=== PATIENT | female | born 1970 | race Caucasian/White ===

== ENCOUNTER 2020-11-17 09:49 | Outpatient (RCR) | payer BC, OTHER ==
[2020-11-03 10:20] LABS: BASOPHILS # (AUTO) 0.1 10^3/uL (0.0-0.1); BASOPHILS % (AUTO) 1 % (0-10); EOSINOPHILS # (AUTO) 0.2 10^3/uL (0.0-0.3); EOSINOPHILS % (AUTO) 3 % (0-10); HEMATOCRIT 35 % (35-52); HEMOGLOBIN 10.9 g/dL (11.5-16.0); LYMPHOCYTES # (AUTO) 1.9 10^3/uL (1.0-4.0); LYMPHOCYTES % (AUTO) 25 % (12-44); MEAN CORPUSCULAR HEMOGLOBIN 30 pg (25-34); MEAN CORPUSCULAR HGB CONC 31 g/dL (32-36); MEAN CORPUSCULAR VOLUME 98 fL (80-99); MEAN PLATELET VOLUME 8.9 fL (9.0-12.2); MONOCYTES # (AUTO) 0.4 10^3/uL (0.0-1.0); MONOCYTES % (AUTO) 5 % (0-12); NEUTROPHILS # (AUTO) 4.9 10^3/uL (1.8-7.8); NEUTROPHILS % (AUTO) 66 % (42-75); PLATELET COUNT 292 10^3/uL (130-400); WHITE BLOOD COUNT 7.5 10^3/uL (4.3-11.0)
[2020-11-03 10:47] LABS: BILIRUBIN,TOTAL 0.2 MG/DL (0.1-1.0); CALCIUM 9.4 MG/DL (8.5-10.1); CREATININE SERUM 1.04 MG/DL (0.60-1.30); POTASSIUM 4.1 MMOL/L (3.6-5.0); TOTAL PROTEIN 6.2 GM/DL (6.4-8.2)
[2020-11-25] MEDS ORDERED: NAPR-1033 PO (10:22)
[2020-11-25] MEDS ORDERED: OMEG-33 PO (10:22)
[2020-11-25] MEDS ORDERED: OMEP20TA7 PO (10:22)
[2020-11-25] MEDS ORDERED: SENN-75 PO (10:22)
[2020-11-25] MEDS ORDERED: FERR-84 PO (10:22)
[2020-11-25] MEDS ORDERED: LORA10TA7 PO (10:22)
[2020-11-25] MEDS ORDERED: CYAN250014 PO (10:22)
[2020-11-25] MEDS ORDERED: VENL50TA2 PO (10:22)
== END 2020-12-09 10:12 | disposition home or self-care (01) ==
LOC: ONC 09:49
PROVIDERS: ATTEND Internal Medicine Hematology & Oncology
DX: C50.211 Malignant neoplasm of upper-inner quadrant of right female breast (principal); N93.9 Abnormal uterine and vaginal bleeding, unspecified; D50.9 Iron deficiency anemia, unspecified; R53.83 Other fatigue; Z17.1 Estrogen receptor negative status [ER-]
CPT/HCPCS: 80053; 82728; 83540; 83550; 85025; G0463; 99213; 99214

== ENCOUNTER 2020-11-25 05:36 | Outpatient (CLI) | payer BC ==
[~2020-11-25] VITALS: Ht 175.3 cm; Wt 102.7 kg
[2020-11-25] MEDS ORDERED: FERR-84 PO (10:22)
[2020-11-25] MEDS ORDERED: CYAN250014 PO (10:22)
[2020-11-25] MEDS ORDERED: VENL50TA2 PO (10:22)
[2020-11-25] MEDS ORDERED: LORA10TA7 PO (10:22)
[2020-11-25] MEDS ORDERED: OMEP20TA7 PO (10:22)
[2020-11-25] MEDS ORDERED: NAPR-1033 PO (10:22)
[2020-11-25] MEDS ORDERED: OMEG-33 PO (10:22)
[2020-11-25] MEDS ORDERED: SENN-75 PO (10:22)
== END 2020-11-25 15:21 | disposition home or self-care (01) ==
LOC: PREOP 05:36
PROVIDERS: ATTEND Obstetrics & Gynecology
DX: Z01.818 Encounter for other preprocedural examination (principal)

== ENCOUNTER 2020-12-21 10:03 | Outpatient (RCR) | payer BC ==
[~2020-12-21 10:03] MED LIST: CYAN250014 PO; FERR-84 PO; LORA10TA7 PO; NAPR-1033 PO; OMEG-33 PO; OMEP20TA7 PO; SENN-75 PO; VENL50TA2 PO
[2020-12-21 10:44] VITALS: BP 127/85
[2020-12-21] MEDS ORDERED: [UNRECOGNIZED DRUG - OTHER] SQ SCH (10:45)
== END 2021-03-21 | disposition home or self-care (01) ==
LOC: SDC 10:03
PROVIDERS: ATTEND Internal Medicine Hematology & Oncology
DX: C50.211 Malignant neoplasm of upper-inner quadrant of right female breast (principal); D70.1 Agranulocytosis secondary to cancer chemotherapy
CPT/HCPCS: 96372

== ENCOUNTER 2020-12-24 18:07 | Emergency (ER) | payer BC ==
[~2020-12-24] VITALS: Ht 175.3 cm; Wt 104.5 kg
--- OUTSIDE RECORDS SUMMARY | 2020-12-24 18:13 | XMS REPORT | Encounter Summary ---
Author Author [facility] Organization [facility] Address Unknown Phone Unavailable Care Team Providers Care Manager Vehicle Name Role Phone Self, Juan Miguel AMBROCIO PCP Encounter Details Care Team Description Date Type Department Jodi Avila MD [address] [place] [id number] 12/22/2020 Orders Only Oncology: David salomon, [facility] [address] [place] [address] Social History Date Tobacco Use Types Packs/Day Years Used Current Every Day Smoker 0.5 4 Smokeless Tobacco: Never Used Comments Alcohol Use Standard Drinks/Week rarely Yes 0 (1 standard drink = 0.6 o z pure alcohol) Sex Assigned at Date Recorded Female 12/15/2020 7:49 AM CDT Date Recorded COVID-19 Exposure Response 12/20/2020 9:48 AM CDT In the last month, have you been in contact with No / Unsure someone who was confirmed or suspected to have Coronavirus / COVID-19? documented as of this encounter Functional Status Date of Assessment Functional Status Response 12/20/2020 Does the patient have a hearing impairment: No 12/20/2020 Does the patient have a visual impairment: Yes 12/20/2020 Does the patient have impaired ambulation: No 12/20/2020 Does the patient have an activity of daily living No (ADL) impairment: 12/20/2020 Does the patient have an instrumental activity of No daily living (IADL) impairment: Date of Assessment Cognitive Status Response 12/20/2020 Does the patient have a cognitive impairment: No documented as of this encounter Ordered Prescriptions Start Date End Date Prescription Sig Dispensed Refills 12/22/2020 varenicline (CHANTIX REJI) Take 0.5mg by 53 tablet 0 0.5 mg (11)- 1 mg (42) mouth daily tablet for 3 days, then increase to 0.5mg by mouth twice daily for 4 days, then increase to 1mg by mouth twice daily. documented in this encounter Plan of Treatment Not on filedocumented as of this encounter Visit Diagnoses Not on filedocumented in this encounter Discontinued Medications Start Date End Date Medication Sig Discontinue Reason 12/01/2020 12/22/2020 varenicline (CHANTIX Take 0.5mg STARTING MONTH BOX) 0.5 by mouth mg (11)- 1 mg (42) tablet daily for 3 days, then increase to 0.5mg by mouth twice daily for 4 days, then increase to 1mg by mouth twice daily. documented as of this encounter Additional Health Concerns Assessment Noted Time A fall risk assessment has been completed for the pat ient 12/20/2020 10:18 AM CDT PHQ-2 Depression Total Score: 0 12/01/2020 10:33 AM CDT documented as of this encounter
--- OUTSIDE RECORDS SUMMARY | 2020-12-24 18:13 | XMS REPORT | Encounter Summary ---
Author Author [facility] Organization [facility] Address Unknown Phone Unavailable Care Team Providers Care Block Sealer Name Role Phone Juan Miguel Jacobs MD PCP Reason for Visit * Radiology Services (Routine) Referred By Contact Referred To Contact Status Reason Specialty Diagnoses / Procedures Jodi Avila MD [address] [place] [address] New Request Radiology Diagnoses Malignant neoplasm of right breast in female, estrogen receptor negative, unspecified site of breast (HCC) P rocedures US BREAST TARGET RT US BREAST COMPLETE BILAT Encounter Details Care Team Description Date Type Department Jodi Avila MD [address], [place] [id number] 12/01/2020 Hospital [facility] [address] [place] [phone] Social History Date Tobacco Use Types Packs/Day Years Used Current Every Day Smoker 0.5 4 Smokeless Tobacco: Never Used Comments Alcohol Use Standard Drinks/Week rarely Yes 0 (1 standard drink = 0.6 o z pure alcohol) Sex Assigned at Date Recorded Female 12/15/2020 7:49 AM CDT Date Recorded COVID-19 Exposure Response 12/01/2020 9:01 AM CDT In the last month, have you been in contact with No / Unsure someone who was confirmed or suspected to have Coronavirus / COVID-19? documented as of this encounter Functional Status Date of Assessment Functional Status Response 12/01/2020 Does the patient have a hearing impairment: No 12/01/2020 Does the patient have a visual impairment: Yes 12/01/2020 Does the patient have impaired ambulation: No 12/01/2020 Does the patient have an activity of daily living No (ADL) impairment: 12/01/2020 Does the patient have an instrumental activity of No daily living (IADL) impairment: Date of Assessment Cognitive Status Response 12/01/2020 Does the patient have a cognitive impairment: No documented as of this encounter Medications at Time of Discharge Start Date End Date Medication Sig Dispensed Refills docosahexaenoic acid/epa Take 500 mg 0 (FISH OIL PO) by mouth daily. docusate sodium (STOOL Take by 0 SOFTENER PO) mouth as Needed. ferrous sulfate (FEOSOL) Take 325 mg 0 325 mg (65 mg iron) by mouth as tablet Needed. Take on an empty stomach at least 1 hour before or 2 hours after food. loratadine (CLARITIN) 10 Take 1 tablet 0 mg tablet by mouth twice daily. omeprazole DR (PRILOSEC) Take 20 mg by 0 20 mg capsule mouth at bedtime daily. 09/22/2020 venlafaxine XR (EFFEXOR TAKE 1 0 XR) 150 mg capsule CAPSULE BY MOUTH ONCE DAILY WITH FOOD FOR 90 DAYS 09/22/2020 venlafaxine XR (EFFEXOR TAKE 1 0 XR) 75 mg capsule CAPSULE BY MOUTH ONCE DAILY WITH FOOD FOR 90 DAYS 12/15/2020 cyanocobalamin (vitamin Take by 0 B-12) (VITAMIN B12 PO) mouth. 12/01/2020 12/22/2020 varenicline (CHANTIX Take 0.5mg by 53 tablet 0 STARTING MONTH BOX) 0.5 mouth daily mg (11)- 1 mg (42) tablet for 3 days, then increase to 0.5mg by mouth twice daily for 4 days, then increase to 1mg by mouth twice daily. documented as of this encounter Discharge Disposition Code Departure Means Destination Disposition Home Home or Self Care documented in this encounter Plan of Treatment Not on filedocumented as of this encounter Procedures Comments Procedure Name Priority Date/Time Associated Diag nosis US BREAST TARGET RT Routine 12/01/2020 Malignant neoplasm of 9:33 AM CDT right breast in female, estrogen receptor negative, unspecified site of breast (HCC) documented in this encounter Results * US BREAST TARGET RT (12/01/2020 9:33 AM CDT) Specimen Impressions Performed At ASSESSMENT: BIRAD 6-Known biopsy proven malignancy [facility] RECOMMENDATION: Treatment plan. Narrative Performed At [id number] US BREAST TARGET RT: RIGHT BREAST - DECEMBER 01, 2020 - [facility] Standard views. Technologist: Melinda Nunez Sonograp her Prior study comparison: October 20, 2020, diagnostic mammogram. History: 50-year old female presents fo r additional imaging prior to surgical consultation after ultrasou nd-guided biopsy of a screening detected mass within [facility] t breast demonstrated malignancy. Outside post procedure mamm ogram demonstrates a ribbon-shaped tissue marker clip along the posterior superior margin of the mass. Targeted ultrasound of the right breast was performed by a trained prepress supervisor. There is irregular not parallel hypoech oic mass with spiculated margins within the right breast at 12:3 0, 10 cm from the nipple measuring 1.1 x 0.9 x 0.9 cm. Adjacent echogenicity likely represents the tissue marker clip. This is consistent with the biopsy-proven malignancy. No morphologically suspicious right axi llary lymph nodes. 4 morphologically normal lymph nodes are documented. No suspicious parasternal/internal mamm oscar lymph nodes are seen. Impression: 1. Biopsy-proven malignant 1.1 cm right breast mass at 12:30 marked with a ribbon tissue marker clip along the margin of the mass. 2.No right axillary or parasternal lymp hadenopathy. Finalized by Shabnam Hill M.D. on 12/01/2020 9:44 AM. Dictated by Shabnam Hill M.D. on 9:41 AM. Electronically signed and approved by: Shabnam Hill M.D. [id number] Procedure Note Interface, Radiant Results - 12/01/2020 9:45 AM CDT [id number] US BREAST TARGET RT: RIGHT BREAST - DECEMBER 01, 2020 - Standard views. Technologist: Melinda Nunez, [employer] Prior study comparison: October 20, 2020, diagnostic mammogram. History: 50-year old female presents for additional imaging prior to surgical consultation after ultrasound-guided biopsy of a screening detected mass within the right breast demonstrated malignancy. Outside post procedure mammogram demonstrates a ribbon-shaped tissue marker clip along the posterior superior margin of the mass. Targeted ultrasound of the right breast was performed by a trained prepress supervisor. There is irregular not parallel hypoechoic mass with spiculated margins within the right breast at 12:30, 10 cm from the nipple measuring 1.1 x 0.9 x 0.9 cm. Adjacent echogenicity likely represents the tissue marker clip. This is consistent with the biopsy-proven malignancy. No morphologically suspicious right axillary lymph nodes. 4 morphologically normal lymph nodes are documented. No suspicious parasternal/internal mammary lymph nodes are seen. Impression: 1. Biopsy-proven malignant 1.1 cm right breast mass at 12:30 marked with a ribbon tissue marker clip along the margin of the mass. 2.No right axillary or parasternal lymph adenopathy. Finalized by Shabnam Hill M.D. on 12/01/2020 9:44 AM. Dictated by Shabnam Hill M.D. on 12/01/2020 9:41 AM. Electronically signed and approved by: Shabnam Hill M.D. [id number] IMPRESSION ASSESSMENT: BIRAD 6-Known biopsy proven malignancy RECOMMENDATION: Treatment plan. Performing Organization Address City/State/ZIP Code P lemuel Number [facility] documented in this encounter Visit Diagnoses Diagnosis Malignant neoplasm of right breast in [place], estrogen receptor negative, unspecified site of breast (HCC) documented in this encounter Additional Health Concerns Assessment Noted Time A fall risk assessment has been completed for the pat ient 12/01/2020 10:33 AM CDT PHQ-2 Depression Total Score: 0 12/01/2020 10:33 AM CDT documented as of this encounter
--- OUTSIDE RECORDS SUMMARY | 2020-12-24 18:13 | XMS REPORT | Encounter Summary ---
Author Author [facility] Organization [facility] Address Unknown Phone Unavailable Care Team Providers Care Staffing Branch Manager Name Role Phone Reynaldo, Juan Miguel AMBROCIO PCP Reason for Visit * Reason Comments Cancer Encounter Details Care Team Description Date Type Department Jodi Avila MD [address] [place] [address] [place] [address] [place] [address] At risk for lymphedema 12/01/2020 Nurse Only Oncology: Abraham salomon, [facility] [address] [place] [phone] Social History Date Tobacco Use Types Packs/Day [...] impairment: No documented as of this encounter Progress Notes * Jennie Huynh RN - 12/01/2020 11:30 AM CDT LYMPHEDEMA DATASHEET-BASELINE DATE: 12/01/2020 PATIENT NAME: Divina Sanchez DATE OF : 1970 Enrollment Visit Type: Pre-Operative Patient Completed Questionnaire?: No BASELINE DIAGNOSTIC ASSESSMENT Diagnosis performed at [facility]? No Diagnostic Procedure: Core Biopsy: Ultrasound guided Surgery performed at [facility]? Yes Surgical Procedure: Pending Plan: Neoadjuvant BASELINE MEASUREMENTS Handedness: right handed Circumferential Measurements Bioimpedance Analysis RUE/LUE Unilateral: 0.3, right Hand: 17.9/17.6 Wrist: 15.8/15.5 8 cm: 20.9/21.1 16 cm: 27.8/27.4 Elbow cm: 28.5/28.2 8 cm: 34.4/34.3 16 cm: 35.3/35.4 24 cm: 38.8/38.3 BMI: 33.86 Notes: True Baseline Saw Ms. Sanchez for baseline lymphedema evaluation prior to initiation of neoad juvant chemotherapy. Reviewed goal of visit. Baseline assessment and measurement s completed, including bilateral arm circumference utilizing a Juzo tape measure , L-Dex Bioimpedence test, ROM, strength, and functional status. All assessments WNL. Instructed patient to use non-affected arm for blood pressures and needle sticks post-operative. Plan: Lymphedema education preoperatively or postoperatively dependent upon value analysis coordinator rdination of schedule. Follow up: Verified patient has contact information should any questions or conc erns arise. Written information regarding today's visit provided. documented in this encounter Plan of Treatment Order Schedule Name Type Priority Associated Diag noses Ordered: 12/01/2020 PERFORM L-DEX Procedures Routine At risk for lym phedema documented as of this encounter Visit Diagnoses Diagnosis At risk for lymphedema Other specified conditions influencing health status documented in this encounter Orders First Ordered Date Nursing Count Last Ordered Date IMPLEMENT BREAST CANCER LYMPHEDEMA 1 08/2020 PREVENTION SURVEILLANCE PROTOCOL documented in this encounter Additional Health Concerns Assessment Noted Time A fall risk assessment has been completed for the pat ient 12/01/2020 10:33 AM CDT PHQ-2 Depression Total Score: 0 12/01/2020 10:33 AM CDT documented as of this encounter
--- OUTSIDE RECORDS SUMMARY | 2020-12-24 18:13 | XMS REPORT | Encounter Summary ---
Author Author [facility] Organization [facility] Address Unknown Phone Unavailable Care Team Providers Care Chip Loft Worker Name Role Phone Reynaldo, Juan Miguel AMBROCIO PCP Reason for Visit * Auth/Cert Referred By Contact Referred To Contact Status Reason Specialty Diagnoses / Procedures Diagnoses Malignant neoplasm of upper-inner quadrant of right breast in female, estrogen receptor negative (HCC) Malignant neoplasm of upper-inner quadrant of right breast in female, estrogen receptor negative (HCC) [C50.211, Z17.1] P rocedures SC INSJ TUNNELED CTR VAD W/SUBQ PORT AGE 5 YR/> SC FLUORO CENTRAL VENOUS ACCESS DEV PLACEMENT INSERTION TUNNELED CENTRAL VENOUS ACCESS DEVICE WITH SUBCUTANEOUS PORT - AGE 5 YEARS AND OVER FLUOROSCOPIC GUIDANCE CENTRAL VENOUS ACCESS DEVICE PLACEMENT/ REPLACEMENT/ REMOVAL Encounter Details Care Team Description Date Type Department Tk Mccauley MD [id number] [place] [address] [phone] Az Cline CRNA [address] [place] [address] [phone] 12/16/2020 Anesthesia Operating Room: Leon Arizmendi, [facility] [address] [place] [phone] Anesthesia Record Responsible Anesthesiologist Anesthesia Start Time Anesthesi a Stop Time Procedure Name Tk Mccauley MD 12/16/20 1020 12/16/20 1056 INSERTION TUNNELED CENTRAL VENOUS ACCESS DEVICE WITH SUBCUTANEOUS PORT - AGE 5 YEARS AND OVER (Left Chest) Date Time Event Comment 1001 1013 AN Equip Check 1019 Out of Pre Procedure 1020 Anes Start 1021 In Room 1021 An Start Data 1023 Start Supplemental O2 1026 Anesthesia Ready 1030 Proc Start 1050 an stop data 1053 Handoff to RN I completed my SBAR handoff to the receiving nurse. 1056 An Stop Meds Name Total midazolam (VERSED) 1 mg/mL injection 2 mg fentaNYL PF (SUBLIMAZE) injection 100 mcg lidocaine PF 2% 100mg/5mL vial 60 mg propofol (DIPRIVAN) 200 mg/ 20 mL 180 mg injection (VIAL) ceFAZolin (ANCEF) 2 g lactated ringers (1000mL) 450 mL * Name O2 N2O Inspired * No blood administrations on file. Removal Type Details Placement Portacath 12/16/20; 1030; X-ray; Yes 12/16/20 10 30 by Yuridia Hernandez RN 12/16/20 1224 by Kapil Underwood RN Peripheral 12/16/20; 0900; RN; L; Forearm; 20 G; 12/16/20 0900 by Panter, IV Vein Light Used; 1; Therapy completed; LORETTA Rojas 12/16/20; 1224 12/16/20 1225 by Rob, Electric Dolly Operator Wounds 12/16/20; 1030; Surgical incision; Left ; 12/16/20 1030 by David, Chest; 12/16/20; 1225 LORETTA Shi documented in this encounter Social History Date Tobacco Use Types Packs/Day Years Used Current Every Day Smoker 0.5 4 Smokeless Tobacco: Never Used Comments Alcohol Use Standard Drinks/Week rarely Yes 0 (1 standard drink = 0.6 o z pure alcohol) Sex Assigned at Date Recorded Female 12/15/2020 7:49 AM CDT Date Recorded COVID-19 Exposure Response 12/19/2020 2:44 PM CDT In the last month, have you been in contact with No / Unsure someone who was confirmed or suspected to have Coronavirus / COVID-19? documented as of this encounter Functional Status Date of Assessment Functional Status Response 12/06/2020 Does the patient have a hearing impairment: No 12/06/2020 Does the patient have a visual impairment: Yes 12/06/2020 Does the patient have impaired ambulation: No 12/06/2020 Does the patient have an activity of daily living No (ADL) impairment: 12/06/2020 Does the patient have an instrumental activity of No daily living (IADL) impairment: Date of Assessment Cognitive Status Response 12/06/2020 Does the patient have a cognitive impairment: No documented as of this encounter OR Notes * Anesthesia Postprocedure Evaluation - Latrell Flores III, MD - 12/16/2020 4:26 PM CDT Post-Anesthesia Evaluation Name: Divina Sanchez : 1970 Age: 50 y.o . Sex: female Procedure Information Anesthesia Start Date/Time: 12/16/20 1020 Procedures: INSERTION TUNNELED CENTRAL VENOUS ACCESS DEVICE WITH SUBCUTANEOUS PORT - AGE 5 YEARS AND OVER (Left Chest) FLUOROSCOPIC GUIDANCE CENTRAL VENOUS ACCESS DEVICE PLACEMENT/ REPLACEMENT/ R EMOVAL (Left ) Location: [facility] 6 / [facility] MAIN OR/PERIOP Surgeons: Neftali Washburn DO Post-Anesthesia Vitals BP: 104/67 (12/16 1145) Temp: 36.7 C (98.1 F) (12/16 1145) Pulse: 66 (12/16 1145) Respirations: 13 PER MINUTE (12/16 1145) SpO2: 100 % (12/16 1145) SpO2 Pulse: 65 (12/16 1145) Height: 175.3 cm (69") (12/16 0837) Vitals Value Taken Time BP 104/67 12/16/20 1145 Temp 36.7 C (98.1 F) 12/16/20 1145 Pulse 66 12/16/20 1145 Respirations 13 PER MINUTE 12/16/20 1145 SpO2 100 % 12/16/20 1145 Post Anesthesia Evaluation Note Evaluation location: pre/post Patient participation: recovered; patient participated in evaluation Level of consciousness: alert Pain score: 2 Pain management: adequate Hydration: normovolemia Temperature: 36.0C - 38.4C Airway patency: adequate Perioperative Events Post-op nausea and vomiting: no PONV Postoperative Status Cardiovascular status: hemodynamically stable Respiratory status: spontaneous ventilation Perioperative Events Perioperative Event: No Emergency Case Activation: No * Anesthesia Preprocedure Evaluation - Tk Mccauley MD - 12/16/2020 10:01 AM CDT Anesthesia Pre-Procedure Evaluation Name: Divina Sanchez : 1970 Age: 50 y.o . Sex: female Procedure Info: Procedure Information Date/Time: 12/16/20 1038 Procedures: INSERTION TUNNELED CENTRAL VENOUS ACCESS DEVICE WITH SUBCUTANEOUS PORT - AGE 5 YEARS AND OVER (N/A ) FLUOROSCOPIC GUIDANCE CENTRAL VENOUS ACCESS DEVICE PLACEMENT/ REPLACEMENT/ R EMOVAL (N/A ) Location: [facility] OR 6 / [facility] MA[facility] OR/PERIOP Surgeons: Neftali Washburn DO Physical Assessment Vital Signs (last filed in past 24 hours): BP: 118/70 (12/16 836) Temp: 36.7 C (98.1 F) (12/16 836) Pulse: 74 (12/16 836) Respirations: 16 PER MINUTE (12/16 836) SpO2: 100 % (12/16 836) Height: 175.3 cm (69") (12/16 836) Weight: 103.4 kg (228 lb) (12/16 836) Patient History No Known Allergies Current Medications Medication Directions cyanocobalamin (VITAMIN B-12) 100 mcg tablet Take 100 mcg by mouth daily. dexAMETHasone (DECADRON) 4 mg tablet Take two tablets by mouth daily. On Days 2- 4 of each cycle. docosahexaenoic acid/epa (FISH OIL PO) Take 500 mg by mouth daily. docusate sodium (STOOL SOFTENER PO) Take by mouth as Needed. ferrous sulfate (FEOSOL) 325 mg (65 mg iron) tablet Take 325 mg by mouth as Need ed. Take on an empty stomach at least 1 hour before or 2 hours after food. lidocaine/prilocaine (EMLA) 2.5/2.5 % topical cream Apply a thin film over port one hour prior to treatment. Do not rub in. Cover with plastic wrap after applic ation loratadine (CLARITIN) 10 mg tablet Take 1 tablet by mouth twice daily. omeprazole DR (PRILOSEC) 20 mg capsule Take 20 mg by mouth at bedtime daily. ondansetron (ZOFRAN) 8 mg tablet Take one tablet by mouth every 8 hours as neede d (nausea and vomiting). prochlorperazine maleate (COMPAZINE) 10 mg tablet Take one tablet by mouth every 6 hours as needed for Nausea or Vomiting. varenicline (CHANTIX STARTING MONTH BOX) 0.5 mg (11)- 1 mg (42) tablet Take 0.5m g by mouth daily for 3 days, then increase to 0.5mg by mouth twice daily for 4 d ays, then increase to 1mg by mouth twice daily. venlafaxine XR (EFFEXOR XR) 150 mg capsule TAKE 1 CAPSULE BY MOUTH ONCE DAILY WI TH FOOD FOR 90 DAYS venlafaxine XR (EFFEXOR XR) 75 mg capsule TAKE 1 CAPSULE BY MOUTH ONCE DAILY WIT H FOOD FOR 90 DAYS Review of Systems/Medical History PONV Screening: Female gender No history of anesthetic complications No family history of anesthetic complications Airway - negative Pulmonary - negative Cardiovascular Exercise tolerance: >4 METS (active, participates in crossfit ) GI/Hepatic/Renal - negative Neuro/Psych - negative Musculoskeletal Back pain Arthritis Congenital hip dysplasia s/p multiple hip surgeries and replacement Endocrine/Other Malignancy (breast ca ) Physical Exam Airway Findings Mallampati: I TM distance: >3 FB Neck ROM: full Mouth opening: good Airway patency: adequate Dental Findings: Negative Cardiovascular Findings: Negative Rhythm: regular Rate: normal Pulmonary Findings: Negative Breath sounds clear to auscultation. Abdominal Findings: Negative Neurological Findings: Negative Constitutional findings: Negative Diagnostic Tests Hematology: Lab Results Component Value Date HGB 11.8 12/08/2020 HCT 35.8 12/08/2020 PLTCT 238 12/08/2020 WBC 7.7 12/08/2020 NEUT 65 12/08/2020 ANC 5.11 12/08/2020 ALC 2.00 12/08/2020 KATYA 6 12/08/2020 AMC 0.43 12/08/2020 EOSA 2 12/08/2020 ABC 0.05 12/08/2020 MCV 92.5 12/08/2020 MCH 30.5 12/08/2020 MCHC 33.0 12/08/2020 MPV 8.3 12/08/2020 RDW 15.0 12/08/2020 General Chemistry: Lab Results Component Value Date NA 139 12/08/2020 K 4.0 12/08/2020 CL 106 12/08/2020 CO2 27 12/08/2020 GAP 6 12/08/2020 BUN 8 12/08/2020 CR 1.09 12/08/2020 GLU 88 12/08/2020 CA 9.0 12/08/2020 ALBUMIN 3.8 12/08/2020 TOTBILI 0.2 12/08/2020 Coagulation: No results found for: PT, PTT, INR Anesthesia Plan ASA score: 3 Plan: MAC Induction method: intravenous NPO status: acceptable Informed Consent Anesthetic plan and risks discussed with patient. Plan discussed with: anesthesiologist and HIGH PRESSURE BOILER OPERATOR. documented in this encounter Plan of Treatment Not on filedocumented as of this encounter Visit Diagnoses Not on filedocumented in this encounter Administered Medications Action Date Dose Rate Site Medication Order MAR Action 12/16/2020 10:25 AM CDT 2 g ceFAZolin (ANCEF) injection Given Intravenous, INTRA-PROCEDURE MED, Starting on Sat12/16/20 at 1025, Until Sat12/16/20 at 1057, Anesthesia Intra-o p 12/16/2020 10:26 AM CDT 25 mcg fentaNYL citrate PF (SUBLIMAZE) Given injection Intravenous, INTRA-PROCEDURE MED, Starting on Sat12/16/20 at 1018, Until Sat12/16/20 at 1057, Anesthesia Intra-o p 25 mcg Given 12/16/2020 10:24 AM CDT 25 mcg Given 12/16/2020 10:21 AM CDT 25 mcg Given 12/16/2020 10:18 AM CDT 12/16/2020 10:21 AM CDT lactated ringers infusion Given - New Intravenous, INTRA-PROCEDURE MED(CONT), Bag Starting on Sat12/16/20 at 1021, Until Sat12/16/20 at 1057, Anesthesia Intra-o p 12/16/2020 10:24 AM CDT 60 mg lidocaine PF 20 mg/mL (2 %) injection Given Intravenous, INTRA-PROCEDURE MED, Starting on Sat12/16/20 at 1024, Until Sat12/16/20 at 1057, Anesthesia Intra-o p 12/16/2020 10:17 AM CDT 2 mg midazolam (VERSED) injection Given Intravenous, INTRA-PROCEDURE MED, Starting on Sat12/16/20 at 1017, Until Sat12/16/20 at 1057, Anesthesia Intra-o p 12/16/2020 10:45 AM CDT 20 mg propofol (DIPRIVAN) injection Given Intravenous, INTRA-PROCEDURE MED, Starting on Sat12/16/20 at 1024, Until Sat12/16/20 at 1057, Anesthesia Intra-o p 20 mg Given 12/16/2020 10:40 AM CDT 20 mg Given 12/16/2020 10:34 AM CDT 20 mg Given 12/16/2020 10:33 AM CDT 20 mg Given 12/16/2020 10:31 AM CDT 20 mg Given 12/16/2020 10:29 AM CDT 20 mg Given 12/16/2020 10:28 AM CDT 20 mg Given 12/16/2020 10:26 AM CDT 20 mg Given 12/16/2020 10:24 AM CDT documented in this encounter Additional Health Concerns Assessment Noted Time A fall risk assessment has been completed for the pat ient 12/16/2020 8:51 AM CDT PHQ-2 Depression Total Score: 0 12/01/2020 10:33 AM CDT documented as of this encounter
--- OUTSIDE RECORDS SUMMARY | 2020-12-24 18:13 | XMS REPORT | Encounter Summary ---
Author Author [facility] Organization [facility] Address Unknown Phone Unavailable Care Team Providers Care Agriculture Inspector Name Role Phone Self, Juan Miguel AMBROCIO PCP Reason for Visit * Auth/Cert Referred By Contact Referred To Contact Status Reason Specialty Diagnoses / Procedures Diagnoses Malignant neoplasm of upper-inner quadrant of right breast in female, estrogen receptor negative (HCC) Malignant neoplasm of upper-inner quadrant of right breast in female, estrogen receptor negative (HCC) [C50.211, Z17.1] P rocedures RI INSJ TUNNELED CTR VAD W/SUBQ PORT AGE 5 YR/> RI FLUORO CENTRAL VENOUS ACCESS DEV PLACEMENT INSERTION TUNNELED CENTRAL VENOUS ACCESS DEVICE WITH SUBCUTANEOUS PORT - AGE 5 YEARS AND OVER FLUOROSCOPIC GUIDANCE CENTRAL VENOUS ACCESS DEVICE PLACEMENT/ REPLACEMENT/ REMOVAL Encounter Details Care Team Description Date [place] [address] [place] [address] [phone] Malignant neoplasm of upper-inner quadra nt of right breast in female, estrogen receptor negative (HCC) 12/16/2020 Hospital Operating Room: [facility] [address] [place] [id number] Social History Date Tobacco Use Types Packs/Day Years Used Current Every Day Smoker 0.5 4 Smokeless Tobacco: Never Used Comments Alcohol Use Standard Drinks/Week rarely Yes 0 (1 standard drink = 0.6 o z pure alcohol) Sex Assigned at Date Recorded Female 12/15/2020 7:49 AM CDT Date Recorded COVID-19 Exposure Response 12/14/2020 9:45 AM CDT In the last month, have you been in contact with No / Unsure someone who was confirmed or suspected to have Coronavirus / COVID-19? documented as of this encounter Last Filed Vital Signs Reading Time Taken Comments Vital Sign 104/67 12/16/2020 11:45 AM CDT Blood Pressure 66 12/16/2020 11:45 AM CDT Pulse 36.7 C (98.1 F) 12/16/2020 11:45 AM CDT Temperature - - Respiratory Rate 100% 12/16/2020 11:45 AM CDT Oxygen Saturation - - Inhaled Oxygen Concentration 103.4 kg (228 lb) 12/16/2020 8:37 AM CDT Weight 175.3 cm (5' 9") 12/16/2020 8:37 AM CDT Height 33.67 12/16/2020 8:37 AM CDT Body Mass Index documented in this encounter Functional Status Date of Assessment [...] Date End Date Medication Sig Dispensed Refills cyanocobalamin (VITAMIN Take 100 mcg 0 B-12) 100 mcg tablet by mouth daily. 12/08/2020 dexAMETHasone (DECADRON) Take two 24 tablet 0 4 mg tabletIndications: tablets by Malignant neoplasm of mouth daily. upper-inner quadrant of On Days 2-4 right breast in female, of each estrogen receptor cycle. negative (HCC) docosahexaenoic acid/epa Take 500 mg 0 (FISH OIL PO) by mouth daily. docusate sodium (STOOL Take by 0 SOFTENER PO) mouth as Needed. ferrous sulfate (FEOSOL) Take 325 mg 0 325 mg (65 mg iron) by mouth as tablet Needed. Take on an empty stomach at least 1 hour before or 2 hours after food. 12/16/2020 HYDROcodone/acetaminophen Take one 10 tablet 0 (NORCO) 5/325 mg tablet tablet by mouth every 6 hours as needed for Pain 12/08/2020 lidocaine/prilocaine Apply a thin 30 g 3 (EMLA) 2.5/2.5 % topical film over cream port one hour prior to treatment. Do not rub in. Cover with plastic wrap after application loratadine (CLARITIN) 10 Take 1 tablet 0 mg tablet by mouth twice daily. omeprazole DR (PRILOSEC) Take 20 mg by 0 20 mg capsule mouth at bedtime daily. 12/16/2020 ondansetron (ZOFRAN ODT) Dissolve one 30 tablet 0 4 mg rapid dissolve tablet by tablet mouth every 8 hours as needed for Nausea or Vomiting. Place on tongue to dissolve. 12/08/2020 ondansetron (ZOFRAN) 8 mg Take one 30 tablet 2 tabletIndications: tablet by Malignant neoplasm of mouth every 8 upper-inner quadrant of hours as right breast in female, needed estrogen receptor (nausea and negative (HCC) vomiting). 12/08/2020 prochlorperazine maleate Take one 30 tablet 2 (COMPAZINE) 10 mg tablet by tabletIndications: mouth every 6 Malignant neoplasm of hours as upper-inner quadrant of needed for right breast in female, Nausea or estrogen receptor Vomiting. negative (HCC) 12/16/2020 senna/docusate Take two 90 tablet 1 (SENOKOT-S) 8.6/50 mg tablets by tablet mouth twice daily. 09/22/2020 venlafaxine XR (EFFEXOR TAKE 1 0 XR) 150 mg capsule CAPSULE BY MOUTH ONCE DAILY WITH FOOD FOR 90 DAYS 09/22/2020 venlafaxine XR (EFFEXOR TAKE 1 0 XR) 75 mg capsule CAPSULE BY MOUTH ONCE DAILY WITH FOOD FOR 90 DAYS 12/01/2020 12/22/2020 varenicline (CHANTIX Take 0.5mg by 53 tablet 0 STARTING MONTH BOX) 0.5 mouth daily mg (11)- 1 mg (42) tablet for 3 days, then increase to 0.5mg by mouth twice daily for 4 days, then increase to 1mg by mouth twice daily. documented as of this encounter Ordered Prescriptions Start Date End Date Prescription Sig Dispensed Refills 12/16/2020 ondansetron (ZOFRAN ODT) Dissolve one 30 tablet 0 4 mg rapid dissolve tablet by tablet mouth every 8 hours as needed for Nausea or Vomiting. Place on tongue to dissolve. 12/16/2020 senna/docusate Take two 90 tablet 1 (SENOKOT-S) 8.6/50 mg tablets by tablet mouth twice daily. 12/16/2020 HYDROcodone/acetaminophen Take one 10 tablet 0 (NORCO) 5/325 mg tablet tablet by mouth every 6 hours as needed for Pain documented in this encounter Discharge Disposition Code Departure Means Destination Disposition Car Home or Self Care documented in this encounter Progress Notes * Kapil Underwood RN - 12/16/2020 12:10 PM CDT PATIENT STABLE. AWAITING RESULT OF CHEST XRAY. COMPUTER SYSTEMS AND PHONE LINES DOWN. [address] READING ROOM AND VERBALLY TOLD POR T PLACEMENT GOOD. PATIENT D/C'D * Kapil Underwood RN - 12/16/2020 11:14 AM CDT PATIENT STABLE. AT BEDSIDE. CHEST XRAY COMPLETED FOR LEFT PORT PLACEMENT . D/C INSTRUCTIONS GIVEN TO AND REVIEWED WITH PATIENT. BELONGINGS WITH P ATIENT. documented in this encounter H&P Notes * Sai Roesn MD - 12/16/2020 9:34 AM CDT General Surgery History and Physical Examination 12/16/2020 Patient: Divina Sanchez Admission Date: 12/16/2020, LOS: 0 days Admission Diagnosis: Malignant neoplasm of upper-inner quadrant of right breast in female, estrogen receptor negative (HCC) [C50.211, Z17.1] ASSESSMENT: 50 y.o. female with history and physical consistent with right tripl e negative breast cancer, which is supported by laboratory and imaging studies. PLAN: - left chest portacath placement Discussed plan of care with staff surgeon, Dr. Washburn, who directed plan of care __ HPI: Divina Sanchez is a 50 y.o. female with PMH significant for right tr iple negative breast cancer who presents with a chief complaint of need for port acath placement for chemotherapy. PMH: Medical History: Diagnosis Date Arthritis Back pain defect Bleeding disorder (HCC) Breast cancer (HCC) 11/2020 right breast Hip dysplasia Vision decreased PSH: Surgical History: Procedure Laterality Date SECTION 2007 HERNIA REPAIR 2007 HIP REPLACEMENT 2015 left hip KNEE SURGERY Left -2015 multiple hip/knee surgeries Meds: No current facility-administered medications on file prior to encounter. Current Outpatient Medications on File Prior to Encounter Medication Sig Dispense Refill cyanocobalamin (VITAMIN B-12) 100 mcg tablet Take 100 mcg by mouth daily. dexAMETHasone (DECADRON) 4 mg tablet Take two tablets by mouth daily. On Day s 2-4 of each cycle. 24 tablet 0 docosahexaenoic acid/epa (FISH OIL PO) Take 500 mg by mouth daily. docusate sodium (STOOL SOFTENER PO) Take by mouth as Needed. ferrous sulfate (FEOSOL) 325 mg (65 mg iron) tablet Take 325 mg by mouth as Needed. Take on an empty stomach at least 1 hour before or 2 hours after food. lidocaine/prilocaine (EMLA) 2.5/2.5 % topical cream Apply a thin film over p ort one hour prior to treatment. Do not rub in. Cover with plastic wrap after ap plication 30 g 3 loratadine (CLARITIN) 10 mg tablet Take 1 tablet by mouth twice daily. omeprazole DR (PRILOSEC) 20 mg capsule Take 20 mg by mouth at bedtime daily. ondansetron (ZOFRAN) 8 mg tablet Take one tablet by mouth every 8 hours as n eeded (nausea and vomiting). 30 tablet 2 prochlorperazine maleate (COMPAZINE) 10 mg tablet Take one tablet by mouth e very 6 hours as needed for Nausea or Vomiting. 30 tablet 2 varenicline (CHANTIX STARTING MONTH BOX) 0.5 mg (11)- 1 mg (42) tablet Take 0.5mg by mouth daily for 3 days, then increase to 0.5mg by mouth twice daily for 4 days, then increase to 1mg by mouth twice daily. 53 tablet 0 venlafaxine XR (EFFEXOR XR) 150 mg capsule TAKE 1 CAPSULE BY MOUTH ONCE KIM Y WITH FOOD FOR 90 DAYS venlafaxine XR (EFFEXOR XR) 75 mg capsule TAKE 1 CAPSULE BY MOUTH ONCE DAILY WITH FOOD FOR 90 DAYS Allergies: Patient has no known allergies. SH: Social History Socioeconomic History Marital status: Spouse name: Not on file Number of children: Not on file Years of education: Not on file Highest education level: Not on file Occupational History Not on file Tobacco Use Smoking status: Current Every Day Smoker Packs/day: 0.50 Years: 4.00 Pack years: 2.00 Smokeless tobacco: Never Used Substance and Sexual Activity Alcohol use: Yes Comment: rarely Drug use: Never Sexual activity: Not on file Other Topics Concern Not on file Social History Narrative Not on file FH: Family History Problem Relation Age of Onset Cancer-Prostate Paternal Uncle Vitals: Vital Signs: Last Filed In 24 Hours Vital Signs: 24 Hour Range BP: 118/70 (12/16 836) Temp: 36.7 C (98.1 F) (12/16 836) Pulse: 74 (12/16 836) Respirations: 16 PER MINUTE (12/16 836) SpO2: 100 % (12/16 836) Height: 175.3 cm (69") (12/16 836) BP: (118)/(70) Temp: [36.7 C (98.1 F)] Pulse: [74] Respirations: [16 PER MINUTE] SpO2: [100 %] BP 118/70 | Pulse 74 | Temp 36.7 C (98.1 F) | Ht 175.3 cm (69") | Wt 103 .4 kg (228 lb) | LMP 11/10/2020 | SpO2 100% | BMI 33.67 kg/m Body mass index is 33.67 kg/m. Physical Exam General: nad Neuro: GCS 15;? no focal deficits. Alert and oriented x4 HEENT: Normocephalic, atraumatic, EOMI, sclera anicteric CVS: Regular rate ? Resp: Unlabored. No Resp distress GI: soft nt nd Ext: Warm. No edema Musculoskeletal: CAMEJO Wounds/other: na Intake/Output: No intake or output data in the 24 hours ending 12/16/20 0934 ROS: Review of Systems ? A complete 12 point ROS was obtained and was negative except for those listed in HPI. Sai Rosen MD General Surgery, Chief Resident Pager #[phone] Associated attestation - Neftali Washburn DO - 12/16/2020 10:14 AM CDT ATTESTATION I personally performed the blank portions of the E/M visit, discussed case with re sident and concur with resident documentation of history, physical exam, assessm ent, and treatment plan unless otherwise noted. Staff name: Neftali Washburn DO Date: 12/16/2020 documented in this encounter Miscellaneous Notes * Operative Report (Direct Entry) - Neftali Washburn DO - 12/16/2020 10:38 AM CDT OPERATIVE REPORT Name: Divina Sanchez is a 50 y.o. female : 1970 M RN#: [id number] DATE OF OPERATION: 12/16/2020 Surgeon(s) and Role: * Neftali Washburn DO - Primary * Sai Rosen MD - Resident - Assisting Preoperative Diagnosis: Malignant neoplasm of upper-inner quadrant of right breast in female, estrogen r eceptor negative (HCC) [C50.211, Z17.1] Post-op Diagnosis * Malignant neoplasm of upper-inner quadrant of right breast in female, estro gen receptor negative (HCC) [C50.211, Z17.1] Procedure(s) (LRB): INSERTION TUNNELED CENTRAL VENOUS ACCESS DEVICE WITH SUBCUTANEOUS PORT - AGE 5 Y EARS AND OVER (Left) FLUOROSCOPIC GUIDANCE CENTRAL VENOUS ACCESS DEVICE PLACEMENT/ REPLACEMENT/ REMOV AL (Left) Description and Findings of Operative Procedure: The patient was brought to the operating room after having had sequential compre ssion devices placed in the perioperative unit for DVT prophylaxis as well as in itiation of appropriate antibiotic prophylaxis within 1 hour of surgical start t bety. She was placed in a supine position. MAC anesthesia with sedation was adm inistered by the Anesthesia Department. The area of the chest, clavicle, and ne ck were sterilely prepped and draped in usual fashion. Attention was directed t owards the left side, where using a combination of 0.25% Marcaine and 1% lidocai ne, subcutaneous tissues in the infraclavicular area were infiltrated and this w as carried to the periosteum of the clavicle. Anesthetic was allowed to set. U sing a 14-gauge thin-wall needle, skin was entered at the level of the [facility] cl[facility], walked down the clavicle, turned towards the sternal notch, and adv anced aspirating at all times. Dark, bloody return was obtained. Syringe was r emoved and guidewire was placed into the needle and advanced. Needle was remove d. Fluoroscopic confirmation of placement showed wire to be within the lumen of the inferior vena cava. Using a 15 blade, transverse incision was created in [facility] infraclavicular area to encompass the entrance of the wire into the skin and dissection continued down through the layers of the subcutaneous tissues. Disse ction continued to the anterior chest wall fascia, where subcutaneous pocket was created that would encompass the Port-A-Cath well. Vessel dilator and peel-away sheath were passed over the wire and advanced. Wire was removed. Dilator was removed, leaving sheath in place. Through this, the catheter portion was advan jeanette to approximately 25 cm and peel-away sheath was removed, leaving the cathete r in place. Under fluoroscopic guidance, catheter was retracted until its tip l aid within the lumen of superior vena cava. This was fashioned, attached to the Port-A-Cath well in usual fashion, locked with locking device over the neck. P ort was placed into the previously created subcutaneous pocket and [facility] to [facility] anterior chest wall with interrupted sutures of 2-0 Vicryl. Port was accesse d through the skin with a Khan needle, aspirated good bloody flow, and flushed with injectable saline. Subcutaneous tissues were reapproximated with interrupt ed sutures of 3-0 Vicryl, skin was closed with running 4-0 Monoderm Stratafix smith ture in subcuticular fashion. Final fluoroscopic confirmation of placement show ed catheter tip to be within the lumen of superior vena cava with no bends or ki nks along its course. The port was accessed one final time through the skin wit h a Khan needle, aspirated good bloody flow, flushed with injectable saline, an d locked with 2000 units of heparin. Dermabond was applied over the incision. This was allowed to dry. The patient was transferred to recovery room in stable condition. Sponge, instrument, and needle counts were correct x2. She tolerat ed the procedure well. There were no complications. Estimated Blood Loss: No blood loss documented. Specimen(s) Removed/Disposition: * No specimens in log * Attestation: I performed this procedure with a resident. and I was present for t he entire procedure. Complications: None Implants: Implant Name Type Inv. Item Serial No. Clinical Laboratory Medical Director Lot No. LRB No. Used Action PORT IMPLANTABLE INFUSION POWERPORT CLEARVUE 6FR SLIM SUTURE - SN/A PORT IMPLAN TABLE INFUSION POWERPORT CLEARVUE 6FR SLIM SUTURE N/A [employer] [id number] Left 1 Implanted Drains: None Disposition: PACU - stable Neftali Washburn DO Pager documented in this encounter Plan of Treatment Not on filedocumented as of this encounter Procedures Comments Procedure Name Priority Date/Time Associated Diag nosis CHEST SINGLE VIEW Routine 12/16/2020 11:14 AM CDT FLUORO MOBILE IN OR Routine 12/16/2020 11:01 AM CDT FLUOROSCOPIC GUIDANCE 12/16/2020 Malignant neopl asm of CENTRAL VENOUS ACCESS 10:21 AM CDT upper-inner jacqui drant of DEVICE PLACEMENT/ right breast in female, REPLACEMENT/ REMOVAL estrogen receptor negative (HCC) INSERTION TUNNELED 12/16/2020 Malignant neoplasm of CENTRAL VENOUS ACCESS 10:21 AM CDT upper-inner jacqui drant of DEVICE WITH SUBCUTANEOUS right breast in female, PORT - AGE 5 YEARS AND estrogen receptor OVER negative (HCC) documented in this encounter Results * CHEST SINGLE VIEW (12/16/2020 11:14 AM CDT) Specimen Impressions Performed At Left subclavian chest port placement as described. No acute cardiopulmonary [facility] abnormality. Finalized by Alex Gillette M.D. on 021 12:18 PM. Dictated by Alex Gillette M.D. on 12/16/2020 12:18 PM. Narrative Performed At Single view [facility] INDICATION: Chest port placement COMPARISON CHEST FILM: None available FINDINGS: Devices: A left subclavian chest port h as been placed with the tip overlying the low SVC. Heart And Pulmonary Vasculature: The he art size is normal without pulmonary vascular congestion. Lungs and Pleura: There are no consolid ating infiltrates, effusions, or pneumothoraces identified. Procedure Note Interface, Radiant Results - 12/16/2020 12:22 PM CDT Single view INDICATION: Chest port placement COMPARISON CHEST FILM: None available FINDINGS: Devices: A left subclavian chest port has been placed with the tip overlying the low SVC. Heart And Pulmonary Vasculature: The heart size is normal without pulmonary vascular congestion. Lungs and Pleura: There are no consolidating infiltrates, effusions, or pneumothoraces identified. IMPRESSION Left subclavian chest port placement as described. No acute cardiopulmonary abnormality. Finalized by Alex Gillette M.D. on 12/16/2020 12:18 PM. Dictated by Alex Gillette M.D. on 12/16/2020 12:18 PM. Performing Organization Address City/State/ZIP Code P lemuel Number [facility] * FLUORO MOBILE IN OR (12/16/2020 11:01 AM CDT) Specimen Narrative Performed At This order has been auto finalized and does not conta in a result. RAFAEL NEWMAN Performing Organization Address City/State/ZIP Code P lemuel Number RAFAEL NEWMAN documented in this encounter Visit Diagnoses Diagnosis Malignant neoplasm of upper-inner quadr ant of right breast in female, estrogen receptor negative (HCC) - Primary documented in this encounter Administered Medications Action Date Dose Rate Site Medication Order MAR Action 12/16/2020 11:51 AM CDT 10 mg oxyCODONE (ROXICODONE) tablet 5-10 mg Given 5-10 mg, Oral, ONCE PRN, 1 dose, Starting on Sat12/16/20 at 1128, Until Sat12/16/20 at 1151, Pain PO, For Pain Score <4, PACU (only) documented in this encounter Discontinued Medications Start Date End Date Medication Sig Discontinue Reason 12/15/2020 cyanocobalamin (vitamin Take by Removed from B-12) (VITAMIN B12 PO) mouth. MANAGER OF MERCHANDISING Med List documented as of this encounter Historical Medications * This list may reflect changes made after this encounter. Start Date End Date Medication Sig Dispensed Refills cyanocobalamin (VITAMIN Take 100 mcg 0 B-12) 100 mcg tablet by mouth daily. added in this encounter Active and Recently Administered Medications Times are shown in CDT. 12/15/2020 12/16/2020 Medication Order 12/14/2020 lactated ringers infusion 1,000 mL, 1,000 mL, Intravenous, at 100 mL/hr, SEE ADMIN INSTRUCTIONS, Starting on Sat12/16/20 at 1128, Until Sat12/16/20 at 1425, Replace NPO loss per post anesthesia protocol with Lactated Ringers or Normal Saline unless otherwise ordered by physician., PACU (only) 12/15/2020 12/16/2020 Medication Order 12/14/2020 diphenhydrAMINE (BENADRYL) injection 25 mg 25 mg, Intravenous, ONCE PRN, 1 dose, Starting on Sat12/16/20 at 1128, Until Sat12/16/20 at 1425, Other..., nausea/vomiting, Third line agent, give if second line agent ineffective., PACU (only) fentaNYL citrate PF (SUBLIMAZE) injection 25-50 mcg 25-50 mcg, Intravenous, EVERY 5 MIN PRN, Starting on Sat12/16/20 at 1128, Until Sat12/16/20 at 1425, Pain Injectable, For Pain Score 4-6, For mercy n score 4 - 6 Maximum total dose 200 mcg Hold if RR < 10, PACU (only) haloperidol lactate (HALDOL) injection 1 mg 1 mg, Intravenous, ONCE PRN, 1 dose, Starting on Sat12/16/20 at 1128, Until Sat12/16/20 at 1425, Other..., Nausea and Vomiting, First line agent. DO NOT ADMINISTER if given intraoperatively, PACU (only) 1046 (Given - Provider: Sai anton MD) heparin (porcine) injection (CANCELED) INTRA-PROCEDURE MED, Starting on Sat12/16/20 at 1046, Until Sat12/16/20 at 1051, Intra-op 1151 (Given - Provider: Kapil Underwood RN) oxyCODONE (ROXICODONE) tablet 5-10 mg (COMPLETED) 5-10 mg, Oral, ONCE PRN, 1 dose, Starting on Sat12/16/20 at 1128, Until Sat12/16/20 at 2359, Pain PO, For Pain Score <4, PACU (only) promethazine (PHENERGAN) injection 6.25 mg 6.25 mg, Intravenous, EVERY 10 MIN PRN, Starting on Sat12/16/20 at 1128, Until Sat12/16/20 at 1425, Other..., nausea/vomiting, Second line agent, giv e if first line agent ineffective. Give i n freely running IV and dilute in 10mL 0.9% sodium chloride. May repeat to total dose of 25 mg from all routes ordered PRN, if no relief in 15 minutes then notify anesthesia physician. PROTECT FROM LIGHT For IV Administration: a. Admin. each dose slowly over at least 5 min. Use lowest effective dose. b. Admin. through a large-bore vein (central venous site preferably). AVOID HAND OR WRIST VEINS UNLESS NO OTHER ALTERNATIVES ARE AVAILABLE. Do NOT administer intra-arterially. c. Check patency of site before admin. Inspect site around catheter tip and extremity for swelling , blanching, bleb formation, stretched an d firm skin or coolness. d. Remain in continual contact with the patient during admin. and for 5 minutes following to observe for adverse reactions and monitor injection site. e. Ask patient to report any burning o r discomfort during infusion. If extravasation is suspected, stop infusion immediately, implement Extravasation Management Protocol, and notify physician., PACU (only) 1046 (Given - New Bag - Provider: Sai Rosen MD) sodium chloride 0.9 % infusion (COMPLETED) INTRA-PROCEDURE MED(CONT), Starting on Sat12/16/20 at 1046, Until Sat12/16/20 at 1046, Intra-op documented in this encounter Orders First Ordered Date Medications Ordered That Might Not Have Count Last Ordered Date Been Administered diphenhydrAMINE (BENADRYL) injection 25 12/16/2020 mg fentaNYL citrate PF (SUBLIMAZE) 2020 injection 25-50 mcg haloperidol lactate (HALDOL) injection 1 12/16/2020 mg heparin (porcine) injection 1 12/16/2020 lactated ringers infusion 1 12/16/2020 promethazine (PHENERGAN) injection 6.25 1 12/16/2020 mg sodium chloride 0.9 % infusion 1 12/16 First Ordered Date Diet Count Last Ordered Date DISCHARGE DIET REGULAR 1 12/16/2020 First Ordered Date Nursing Count Last Ordered Date DISCHARGE ACTIVITY LIFTING 1 12/16/2020 DISCHARGE CONTACT 1 12/16/2020 DISCHARGE EDUCATION 1 12/16/2020 DISCHARGE SIGNS/SYMPTOMS 1 12/16/2020 DISCHARGE WOUND CARE 1 12/16/2020 First Ordered Date Discharge Count Last Ordered Date DISCHARGE PATIENT NOW 1 12/16/2020 First Ordered Date Vital Signs Count Last Ordered Date VITAL SIGNS 1 12/16/2020 documented in this encounter Additional Health Concerns Assessment Noted Time A fall risk assessment has been completed for the pat ient 12/16/2020 8:51 AM CDT PHQ-2 Depression Total Score: 0 12/01/2020 10:33 AM CDT documented as of this encounter
--- OUTSIDE RECORDS SUMMARY | 2020-12-24 18:13 | XMS REPORT | Encounter Summary ---
Author Author [facility] Organization [facility] Address Unknown Phone Unavailable Care Team Providers Care Technical Solutions Engineer Name Role Phone Self, Juan Miguel AMBROCIO PCP Reason for Referral * Consult, Test & Treat (Routine) Referred By Contact Referred To Contact Status Reason Specialty Diagnoses / [place] [address] [place] [address] [facility] [place] [address] [place] [address] Closed Specialty Services General Surgery Diagnoses Required Malignant neoplasm of right breast in female, estrogen receptor negative, unspecified site of breast (HCC) Comments Port placement for chemo Electronically signed by Gerhard Paige MD at * Test (Routine) Referred By Contact Referred To Contact Status Reason Specialty Diagnoses / [place] [address] [place] [address] [facility] Echo/Pv [address] [place] [address] Authorized Cardiology Diagnoses Malignant neoplasm of right breast in female, estrogen receptor negative, unspecified site of breast (HCC) P rocedures 2D + DOPPLER ECHO AL ECHO TTHRC R-T 2D W/WOM-MODE COMPL SPEC&COLR D Electronically signed by Gerhard Paige MD at * Consult, Test & Treat (Urgent) Referred By Contact Referred To Contact Status Reason Specialty Diagnoses / [place] [address] [place] [phone] Cc - Ww Cl Exm/Proc Rm [address] [place], [place] Canceled Specialty Services Oncology Diagnoses Required Malignant neoplasm of right breast in female, estrogen receptor negative, unspecified site of breast (HCC) Comments needs urgent referral, triple negative and young Breast Cancer Patients: Triple Negative? YES Additional information/ relevant family history: (free type) Electronically signed by Gerhard Paige MD at Reason for Visit * Reason Comments New [place] Pt * Consult, Test & Treat (Urgent) Referred By Contact Referred To Contact Status Reason Specialty Diagnoses / Procedures Jodi Avila MD [address] [place] [address] Cc - Cl Exm/Proc Rm [address] [place], [place] Authorized Specialty Services Oncology Diagnoses Required Malignant neoplasm of upper-inner quadrant of right breast in female, estrogen receptor negative (HCC) Encounter Details Care Team Description Date [place] [address] [place] [phone] Malignant neoplasm of right breast in fe male, estrogen receptor negative, unspecified site of breast (HCC) (Primary Dx) 12/06/2020 Office Visit Oncology: Cancer [facility] [address] [place] [address] [phone] Social History Date Tobacco Use Types Packs/Day Years Used Current Every Day Smoker 0.5 4 Smokeless Tobacco: Never Used Comments Alcohol Use Standard Drinks/Week rarely Yes 0 (1 standard drink = 0.6 o z pure alcohol) Sex Assigned at Date Recorded Female 12/15/2020 7:49 AM CDT Date Recorded COVID-19 Exposure Response 12/06/2020 2:21 PM CDT In the last month, have you been in contact with No / Unsure someone who was confirmed or suspected to have Coronavirus / COVID-19? documented as of this encounter Last Filed Vital Signs Reading Time Taken Comments Vital Sign 114/64 12/06/2020 2:47 PM CDT Blood Pressure 82 12/06/2020 2:47 PM CDT Pulse 36.6 C (97.8 F) 12/06/2020 2:47 PM CDT Temperature 16 12/06/2020 2:47 PM CDT Respiratory Rate 100% 12/06/2020 2:47 PM CDT Oxygen Saturation - - Inhaled Oxygen Concentration 103.2 kg (227 lb 9.6 oz) 12/06/2020 2:47 PM CDT Weight 174.6 cm (5' 8.75") 12/06/2020 2:47 PM CDT Height 33.86 12/06/2020 2:47 PM CDT Body Mass Index documented in this [...] as of this encounter Progress Notes * Gerhard Paige MD - 12/06/2020 3:00 PM CDT Name: Divina Sanchez : 1970 AGE: 50 y.o. DATE OF SERVICE: 12/06/2020 Subjective: Reason for Visit: New [place] Pt Divina Sanchez is a 50 y.o. female. Cancer Staging Malignant neoplasm of upper-inner quadrant of right breast in female, estrogen r eceptor negative (HCC) Staging form: Breast, AJCC 8th Edition - Clinical stage from 11/24/2020: Stage IB (cT1c, cN0, cM0, G3, ER-, AL-, HER2-) - Signed by Gladys Rodriguez PA-C on 12/01/2020 History of Present Illness Divina presents as a second opinion for evaluation of her recently diagnosed [address] cancer. She underwent a screening mammogram October 04, 2020 which revealed heterogeneously dense breast tissue. A solitary small lobulated and possibly spiculated nodule was present in the right superior breast near the chest wall measuring 6 mm. No worrisome calcifications and no obvious axillary adenopathy. Right diagnostic mammogram 10/20/2020 revealed an irregular 6 mm mass at the 1 o' clock position adjacent to the pectoralis muscle. Right breast ultrasound revea led than the right nuclear hypoechoic mass at the 1 o'clock position, 10 cm from the nipple. The mass was immediately adjacent to the rectal muscle. It measur ed 1 x 0.8 x 0.7. It had irregular margins and posterior shadowing. Ultrasound-guided biopsy 10/25/2020 revealed grade 3 invasive ductal carcinoma wi th DCIS. The breast prognostic profile was ER 0, AL 0, HER-2 0. Right breast ultrasound at 12/01/2020 revealed an irregular not parallel hypoec hoic mass with spiculated margins within the right breast at the 12:30 position, 10 cm from nipple measuring 1.1 x 0.9 x 0.9. Adjacent echogenicity likely repr esenting the tissue marker. No morphologically suspicious right axillary nodes. Breast MRI is scheduled for December 08. Planning BRENNAN/BSO on 12/02/2020 for abnormal uterine bleeding/ovarian cyst but was postponed due to cancer diagnosis. Past medical history: Tobacco use. Social history: She lives with her and 2 of her children. Family history: No paternal family history of breast or ovarian cancers. Mother is adopted and does not know the family history of the cancer in the biological family. Reproductive health: Age at first Menarche: 15 Age at First Live : 23 Age at Menopause: n/a : 5 Para: 5 : no Genetic Referral: Consult placed 12/06/20 Review of Systems Constitutional: Negative for activity change, appetite change, fatigue and fever . HENT: Negative for congestion and sore throat. Eyes: Negative. Respiratory: Negative for cough and shortness of breath. Cardiovascular: Negative. Gastrointestinal: Negative for abdominal distention, constipation and diarrhea. Endocrine: Negative. Genitourinary: Negative for difficulty urinating. Musculoskeletal: Negative for arthralgias, myalgias, neck pain and neck stiffnes s. Skin: Negative for rash. Neurological: Negative for dizziness, light-headedness and numbness. Hematological: Negative for adenopathy. Does not bruise/bleed easily. Psychiatric/Behavioral: Negative. Objective: cyanocobalamin (vitamin B-12) (VITAMIN B12 PO) Take by mouth. docosahexaenoic acid/epa (FISH OIL PO) Take 500 mg by mouth daily. docusate sodium (STOOL SOFTENER PO) Take by mouth as Needed. ferrous sulfate (FEOSOL) 325 mg (65 mg iron) tablet Take 325 mg by mouth as Needed. Take on an empty stomach at least 1 hour before or 2 hours after food. loratadine (CLARITIN) 10 mg tablet Take 1 tablet by mouth twice daily. omeprazole DR (PRILOSEC) 20 mg capsule Take 20 mg by mouth daily before ivanna kfast. varenicline (CHANTIX STARTING MONTH BOX) 0.5 mg (11)- 1 mg (42) tablet Take 0.5mg by mouth daily for 3 days, then increase to 0.5mg by mouth twice daily for 4 days, then increase to 1mg by mouth twice daily. (Patient not taking: Reported on 12/06/2020) venlafaxine XR (EFFEXOR XR) 150 mg capsule TAKE 1 CAPSULE BY MOUTH ONCE KIM Y WITH FOOD FOR 90 DAYS venlafaxine XR (EFFEXOR XR) 75 mg capsule TAKE 1 CAPSULE BY MOUTH ONCE DAILY WITH FOOD FOR 90 DAYS Vitals: 12/06/20 1447 BP: 114/64 BP Source: Arm, Right Upper Patient Position: Sitting Pulse: 82 Resp: 16 Temp: 36.6 C (97.8 F) TempSrc: Oral SpO2: 100% Weight: 103.2 kg (227 lb 9.6 oz) Height: 174.6 cm (68.75") PainSc: Zero Body mass index is 33.86 kg/m. Pain Score: Zero Fatigue Scale: 5 Pain Addressed: N/A Patient Evaluated for a Clinical Trial: No treatment clinical trial available fo r this patient. Eastern Cooperative Oncology Group performance status is 0, Fully active, able t o carry on all pre-disease performance without restriction.. Physical Exam Constitutional: Appearance: She is well-developed. HENT: Head: Normocephalic. Eyes: Conjunctiva/sclera: Conjunctivae normal. Pupils: Pupils are equal, round, and reactive to light. Cardiovascular: Rate and Rhythm: Normal rate and regular rhythm. Heart sounds: Normal heart sounds. No murmur. No gallop. Pulmonary: Effort: Pulmonary effort is normal. No respiratory distress. Breath sounds: Normal breath sounds. No wheezing or rales. Abdominal: General: Bowel sounds are normal. There is no distension. Palpations: Abdomen is soft. Musculoskeletal: General: Normal range of motion. Cervical back: Normal range of motion and neck supple. Lymphadenopathy: Cervical: No cervical adenopathy. Upper Body: Right upper body: No supraclavicular or epitrochlear adenopathy. Left upper body: No supraclavicular or epitrochlear adenopathy. Neurological: Mental Status: She is alert and oriented to person, place, and time. Assessment and Plan: T1CN0 triple negative breast cancer. I reviewed with Divina and her the typical approach to patient with breast cancer and this involves multimodality t herapy including surgery, medical oncology and radiation oncology. She met with Dr. Avila from a surgical perspective and was recommend considering neoadjuva nt chemotherapy. I discussed that my role is the role of systemic therapy. Her tumor is ER/AL negative and there is no role for any adjuvant endocrine ther apy. With her having a triple negative breast cancer our threshold to give syst emic chemotherapy is 0.5 cm and greater. The chemotherapy can be given in the n eoadjuvant or the adjuvant setting. With her tumor being so small we could give chemo in either setting. We discussed that more and more and triple negative b reast cancers we have been moving towards giving chemotherapy in the neoadjuvant setting as based on their complete response rate we may offer additional adjuva nt therapy to decrease the chance of recurrent disease. We discussed traditiona l regimen of AC Taxol versus Taxotere/Cytoxan. We also discussed the recent bj roval of Keytruda in addition to immunotherapy based on the keynote 522 trial, w [facility] gives patients weekly Taxol for 12 weeks with carboplatin every 3 weeks for 4 cycles, followed by AC every 3 weeks for 4 cycles. With every cycle there was Keytruda given 1 time every 3 weeks. After weighing pros and cons of each regimen I felt that given the small size of her cancer, the keynote 522 protocol may be a little bit excessive and cause mo re toxicity without getting as much benefit. Given her young age and good healt h I felt giving her AC Taxol would be more aggressive then Taxotere Cytoxan, nora ecially if we were going to give it in the neoadjuvant setting. If she does not have a complete response we still can give her adjuvant chemothe rapy with Xeloda based on the create X trial. documented in this encounter Plan of Treatment Order Schedule Name Type Priority Associated Diag noses Expected: 12/20/2020 (Approximate), Expi res: 12/06/2021 MISCELLANEOUS LAB TEST Lab Routine Maligna nt neoplasm of right breast in female, estrogen receptor negative, unspecified site of breast (HCC) Expected: 12/20/2020 (Approximate), Expi res: 12/06/2021 GENETIC TEST Lab Routine Malignant neopl asm of right breast in female, estrogen receptor negative, unspecified site of breast (HCC) Expected: 12/07/2020 (Approximate), Expi res: 12/06/2021 CBC AND DIFF Lab Routine Malignant neopl asm of right breast in female, estrogen receptor negative, unspecified site of breast (HCC) Expected: 12/07/2020 (Approximate), Expi res: 12/06/2021 COMPREHENSIVE METABOLIC Lab Routine Malign ant neoplasm of PANEL right breast in female, estrogen receptor negative, unspecified site of breast (HCC) Order Schedule Name Type Priority Associated Diag noses Ordered: 12/06/2020 AMB REFERRAL TO GENETIC Outpatient STAT Malign ant neoplasm of COUNSELING Referral right breast in fem sheri, estrogen receptor negative, unspecified site of breast (HCC) Ordered: 12/06/2020 AMB REFERRAL TO GENERAL Outpatient Routine Malign ant neoplasm of SURGERY Referral right breast in fem sheri, estrogen receptor negative, unspecified site of breast (HCC) documented as of this encounter Results * 2D + DOPPLER ECHO (12/14/2020 10:30 AM CDT) IVS 0.87 0.6 - 0.9 cm OTHER OUTSIDE LAB LVIDD 4.35 3.8 - 5.2 cm OTHER OUTSIDE LAB LVIDS 3.29 2.2 - 3.5 cm OTHER OUTSIDE LAB PW 0.80 0.6 - 0.9 cm OTHER OUTSIDE LAB Left Ventricle 75.00 46 - 106 mL OTHER OUTSIDE Diastolic LAB Volume Left Ventricle 34 29 - 61 mL OTHER OUTSIDE Diastolic LAB Volume Index Left Ventricle 27.00 14 - 42 mL OTHER OUTSIDE Systolic Volume LAB Left Ventricle 12 8 - 24 mL OTHER OUTSIDE Systolic Volume LAB Index TDI lateral e' 0.14 m/s OTHER OUTSIDE LAB Right 1.97 1.9 - 3.5 cm OTHER OUTSIDE Ventricular Mid LAB Diameter LA size 3.23 2.7 - 3.8 cm OTHER OUTSIDE LAB LA volume 37.92 22 - 52 mL OTHER OUTSIDE LAB Right Atrial 10.14 <18 cm2 OTHER OUTSIDE Area LAB Right Atrial 4.11 2.2 - 2.8 cm OTHER OUTSIDE Major Dimension LAB AV peak 1.71 m/s OTHER OUTSIDE velocity LAB MV Peak A Bruno 0.90 m/s OTHER OUTSIDE LAB MV Peak E Bruno 0.90 m/s OTHER OUTSIDE PW LAB Right 2.59 2.5 - 4.1 cm OTHER OUTSIDE Ventricular LAB Basal Diameter Right Heart 2.32 >1.7 cm OTHER OUTSIDE Systolic Mmode LAB TAPSE Right Heart 0.12 m/s OTHER OUTSIDE Systolic TDI S' LAB Sinus 2.71 2.4 - 3.6 cm OTHER OUTSIDE LAB Ascending aorta 3.10 cm OTHER OUTSIDE LAB BSA 2.23 m2 OTHER OUTSIDE LAB Referring Juan Miguel Self OTHER OUTSIDE Provider LAB FS 24.37 28 - 44 % OTHER OUTSIDE LAB EF 41.43 % OTHER OUTSIDE LAB LV mass 114 67 - 162 g OTHER OUTSIDE LAB RWT 0.37 <=0.42 OTHER OUTSIDE LAB E/A ratio 1.00 OTHER OUTSIDE LAB Lateral E/E' 6.43 OTHER OUTSIDE ratio LAB Left Atrium 17.00 16 - 34 OTHER OUTSIDE Index LAB Cardiology Siemens [id number] OTHER OUTSIDE Ultrasound LAB Machine Left Ventricle 51 43 - 95 g/m2 OTHER OUTSIDE Mass Index LAB TV rest 28 mmHg OTHER OUTSIDE pulmonary LAB artery pressure LEFT VENTRICLE -19 OTHER OUTSIDE GLOBAL LAB LONGITUDINAL STRAIN TR PEAK 2.5 m/s OTHER OUTSIDE VELOCITY LAB RV SYSTOLIC 25 OTHER OUTSIDE PRESSURE LAB RA PRESSURE 3 OTHER OUTSIDE LAB JEFF'S 63 % OTHER OUTSIDE BIPLANE EF LAB ECHO EF 65 % OTHER OUTSIDE LAB Specimen Narrative Performed At OTHER OUTSIDE LAB Left ventricular systolic function is w ithin normal limits. LVEF 65% No significant valvular abnormalities. No pericardial effusion. Global longitudinal strain is -19% Performing Organization Address City/State/ZIP Code P lemuel Number OTHER OUTSIDE LAB documented in this encounter Visit Diagnoses Diagnosis Malignant neoplasm of right breast in f emale, estrogen receptor negative, unspecified site of breast (HCC) - Primary documented in this encounter Additional Health Concerns Assessment Noted Time A fall risk assessment has been completed for the pat ient 12/06/2020 2:50 PM CDT PHQ-2 Depression Total Score: 0 12/01/2020 10:33 AM CDT documented as of this encounter
--- OUTSIDE RECORDS SUMMARY | 2020-12-24 18:13 | XMS REPORT | Encounter Summary ---
Author Author [facility] Organization [facility] Address Unknown Phone Unavailable Care Team Providers Care Fire Sprinkler Service Technician Name Role Phone Self, Juan Miguel AMBROCIO PCP Encounter Details Care Team Description Date [place] [address] [place] [address] [phone] Arrived 12/20/2020 Hospital Laboratory: Cancer [facility] [address] [place] [phone] Social History Date Tobacco Use Types Packs/Day [...] impairment: No documented as of this encounter Plan of Treatment Not on filedocumented as of this encounter Procedures Comments Procedure Name Priority Date/Time Associated Diag nosis HC CBC W/ AUTOMATED DIFF Routine 12/20/2020 Malig nant neoplasm of 10:11 AM CDT upper-inner quadrant of right breast in female, estrogen receptor negative (HCC) HC COMPREHENSIVE Routine 12/20/2020 Malignant rebecca plasm of METABOLIC PANEL 10:11 AM CDT upper-inner quadran t of right breast in female, estrogen receptor negative (HCC) documented in this encounter Results * COMPREHENSIVE METABOLIC PANEL (12/20/2020 10:11 AM CDT) Sodium 138 137 - 147 MMOL/L [facility] Potassium 3.8 3.5 - 5.1 MMOL/L [facility] Chloride 104 98 - 110 MMOL/L [facility] Glucose 109 (H) 70 - 100 MG/DL [facility] Blood Urea 10 7 - 25 MG/DL [facility] Nitrogen Creatinine 0.99 0.4 - 1.00 MG/DL [facility] Calcium 8.7 8.5 - 10.6 MG/DL [facility] Total Protein 6.1 6.0 - 8.0 G/DL [facility] Total Bilirubin 0.1 (L) 0.3 - 1.2 MG/DL [facility] Albumin 3.8 3.5 - 5.0 G/DL [facility] Alk Phosphatase 58 25 - 110 U/L [facility] AST (SGOT) 16 7 - 40 U/L [facility] CO2 26 21 - 30 MMOL/L [facility] ALT (SGPT) 13 7 - 56 U/L [facility] Anion Gap 8 3 - 12 [facility] eGFR Non 60 (L) >60 mL/min [facility] Comment: Thai The eGFR is not validated f or use in drug dosing adjustments. Continue to use estimated creatinine clearance per dosing reference text. Please contact the Clinical Pharmacist for questions. eGFR >60 >60 mL/min [facility] Thai Comment: The eGFR is not validated for use in drug dosing adjustments. Continue to use estimated creatinine clearance per dosing reference text. Please contact the Clinical Pharmacist for questions. Specimen Blood Performing Organization Address City/State/ZIP Code P lemuel Number [facility] [address] [place] [address] * CBC AND DIFF (12/20/2020 10:11 AM CDT) White Blood 7.0 4.5 - 11.0 K/UL [facility] Cells [place] RBC 4.18 4.0 - 5.0 M/UL [facility] [place] Hemoglobin 12.2 12.0 - 15.0 GM/DL [facility] [place] Hematocrit 38.1 36 - 45 % [facility] [place] MCV 91.1 80 - 100 FL [facility] [place] MCH 29.2 26 - 34 PG [facility] [place] MCHC 32.1 32.0 - 36.0 G/DL [facility] [place] RDW 15.2 (H) 11 - 15 % [facility] [place] Platelet Count 259 150 - 400 K/UL [facility] [place] MPV 7.4 7 - [address] [facility] [place] Neutrophils 63 41 - 77 % [facility] [place] Lymphocytes 27 24 - 44 % [facility] [place] Monocytes 6 4 - 12 % [facility] [place] Eosinophils 3 0 - 5 % [facility] [place] Basophils 1 0 - 2 % [facility] [place] Absolute 4.50 1.8 - 7.0 K/UL [facility] Neutrophil [place] Count Absolute Lymph 1.90 1.0 - 4.8 K/UL [facility] Count [place] Absolute 0.40 0 - 0.80 K/UL [facility] Monocyte Count [place] Absolute 0.20 0 - 0.45 K/UL [facility] Eosinophil [place] Count Absolute 0.10 0 - 0.20 K/UL [facility] Basophil Count [place] Specimen Blood Performing Organization Address City/State/ZIP Code P lemu[address] Number [facility] [place] [address] [place], [place] [address] documented in this encounter Visit Diagnoses Diagnosis [...]
--- OUTSIDE RECORDS SUMMARY | 2020-12-24 18:13 | XMS REPORT | Encounter Summary ---
Author Author [facility] Organization [facility] Address Unknown Phone Unavailable Care Team Providers Care Haunted History Tour Guide Name Role Phone Reynaldo, Juan Miguel AMBROCIO PCP Reason for Referral * Test (Routine) Referred By Contact Referred To Contact Status Reason Specialty Diagnoses / [place] [address] [place] [address] [facility] Echo/Pv [address] [place] [phone] Authorized Cardiology Diagnoses Malignant neoplasm of right breast in female, estrogen receptor negative, unspecified site of breast (HCC) P rocedures 2D + DOPPLER ECHO NC ECHO TTHRC R-T 2D W/WOM-MODE COMPL SPEC&COLR D Electronically signed by Gerhard Paige MD at Reason for Visit * Test (Routine) Referred By Contact Referred To Contact Status Reason Specialty Diagnoses / [place] [address] [place] [address] [facility] Echo/Pv [address] [place] [phone] Authorized Cardiology Diagnoses Malignant neoplasm of right breast in female, estrogen receptor negative, unspecified site of breast (HCC) P rocedures 2D + DOPPLER ECHO NC ECHO TTHRC R-T 2D W/WOM-MODE COMPL SPEC&COLR D Encounter Details Care Team Description Date [place] [address] [place] [address] [phone] 12/14/2020 Hospital Cardiology: [facility] [address] [place] [address] Social History Date Tobacco Use Types Packs/Day [...] Signs Reading Time Taken Comments Vital Sign 132/68 12/14/2020 10:30 AM CDT Blood Pressure - - Pulse - - Temperature - - Respiratory Rate - - Oxygen Saturation - - Inhaled Oxygen Concentration 103.4 kg (228 lb) 12/14/2020 10:30 AM CDT Weight 172.7 cm (5' 8") 12/14/2020 10:30 AM CDT Height 34.67 12/14/2020 10:30 AM CDT Body Mass Index documented in [...] Procedure Name Priority Date/Time Associated Diag nosis 2D + DOPPLER ECHO W/ Routine 12/14/2020 Malignant neoplasm of STRAIN NO CONTRAST 10:30 AM CDT right breast in fe male, estrogen receptor negative, unspecified site of breast (HCC) documented in this encounter Results * 2D + DOPPLER [...] 34 OTHER OUTSIDE Index LAB Cardiology Siemens [id number] OTHER OUTSIDE Ultrasound LAB Machine Left Ventricle [...]
--- OUTSIDE RECORDS SUMMARY | 2020-12-24 18:13 | XMS REPORT | Encounter Summary ---
Author Author [facility] Organization [facility] Address Unknown Phone Unavailable Care Team Providers Care Darkroom Technician Name Role Phone Self, Juan Miguel AMBROCIO PCP Encounter Details Care Team Description Date Type Department 12/08/2020 Travel Social History Date Tobacco Use Types Packs/Day Years Used Current Every Day Smoker 0.5 4 Smokeless Tobacco: Never Used Comments Alcohol Use Standard Drinks/Week rarely Yes 0 (1 standard drink = 0.6 o z pure alcohol) Sex Assigned at Date Recorded Female 12/15/2020 7:49 AM CDT Date Recorded COVID-19 Exposure Response 12/08/2020 9:25 AM CDT In the last month, have [...] Diagnoses Not on filedocumented in this encounter Additional Health Concerns Assessment Noted Time A fall risk assessment has been completed for the pat ient 12/06/2020 2:50 PM CDT PHQ-2 Depression Total Score: 0 12/01/2020 10:33 AM CDT documented as of this encounter
--- OUTSIDE RECORDS SUMMARY | 2020-12-24 18:13 | XMS REPORT | Encounter Summary ---
Author Author [facility] Organization [facility] Address Unknown Phone Unavailable Care Team Providers Care Supervisor Farm Equipment [employer] Name Role Phone Self, Juan Miguel AMBROCIO PCP Encounter Details Care Team Description [place] [address] [place] [id number] [phone] 12/08/2020 Hospital Laboratory: Cancer [facility] [address] [place] [phone] Social History Date Tobacco Use Types [...] Date End Date Medication Sig Dispensed Refills 12/08/2020 dexAMETHasone (DECADRON) Take two 24 tablet [...] hour before or 2 hours after food. 12/08/2020 lidocaine/prilocaine Apply a thin 30 g 3 (EMLA) 2.5/2.5 % topical film over cream port one hour prior to treatment. Do not rub in. Cover with plastic wrap after application loratadine (CLARITIN) 10 Take 1 tablet 0 mg tablet by mouth twice daily. omeprazole DR (PRILOSEC) Take 20 mg by 0 20 mg capsule mouth at bedtime daily. 12/08/2020 ondansetron (ZOFRAN) 8 mg Take one [...] Nausea or estrogen receptor Vomiting. negative (HCC) 09/22/2020 venlafaxine XR (EFFEXOR TAKE 1 0 [...]
--- OUTSIDE RECORDS SUMMARY | 2020-12-24 18:13 | XMS REPORT | Encounter Summary ---
Author Author [facility] Organization [facility] Address Unknown Phone Unavailable Care Team Providers Care Dietary Supervisor Name Role Phone Self, Juan Miguel AMBROCIO PCP Encounter Details Care Team Description Date Type Department 12/06/2020 Travel Social History Date Tobacco Use Types [...]
--- OUTSIDE RECORDS SUMMARY | 2020-12-24 18:13 | XMS REPORT | Encounter Summary ---
Author Author [facility] Organization [facility] Address Unknown Phone Unavailable Care Team Providers Care Solderer Barrel Ribs Name Role Phone Juan Miguel Jacobs MD PCP Reason for Referral * Radiology Services (Routine) Referred By Contact Referred To Contact Status Reason Specialty Diagnoses / Procedures Jodi Avila MD [address] [place] [address] [address] [place] [address] Authorized Radiology Diagnoses Malignant neoplasm of upper-inner quadrant of right breast in female, estrogen receptor negative (HCC) P rocedures MRI BREAST BILAT WO/W CONTRAST Electronically signed by Jodi Avila MD at Reason for Visit * Radiology Services (Routine) Referred By Contact Referred To Contact Status Reason Specialty Diagnoses / Procedures Jodi Avila MD [address] [place] [address] [address] [place] [address] Authorized Radiology Diagnoses Malignant neoplasm of upper-inner quadrant of right breast in female, estrogen receptor negative (HCC) P rocedures MRI BREAST BILAT WO/W CONTRAST Encounter Details Care Team Description Date Type Department Jodi Avila MD [address] [place], [place] [phone] 12/08/2020 Hospital Imaging MRI: [place] Of [place] Encounter [place] [address] [place] [phone] Social History Date Tobacco Use Types Packs/Day [...] Diag nosis HC CBC W/ AUTOMATED DIFF 12/08/2020 10:54 AM CDT HC COMPREHENSIVE 12/08/2020 METABOLIC PANEL 10:54 AM CDT MRI BREAST BILAT WO/W Routine 12/08/2020 Malignan t neoplasm of CONTRAST 10:43 AM CDT upper-inner quadran t of right breast in female, estrogen receptor negative (HCC) documented in this encounter Results * CBC AND DIFF (12/08/2020 10:54 AM CDT) White Blood 7.7 4.5 - 11.0 K/UL [facility] Cells RBC 3.87 (L) 4.0 - 5.0 M/UL [facility] Hemoglobin 11.8 (L) 12.0 - 15.0 GM/DL [facility] Hematocrit 35.8 (L) 36 - 45 % [facility] MCV 92.5 80 - 100 FL [facility] MCH 30.5 26 - 34 PG [facility] MCHC 33.0 32.0 - 36.0 G/DL [facility] RDW 15.0 11 - 15 % [facility] Platelet Count 238 150 - 400 K/UL [facility] MPV 8.3 7 - 11 FL [facility] Neutrophils 65 41 - 77 % [facility] Lymphocytes 26 24 - 44 % [facility] Monocytes 6 4 - 12 % [facility] Eosinophils 2 0 - 5 % [facility] Basophils 1 0 - 2 % [facility] Absolute 5.11 1.8 - 7.0 K/UL [facility] Neutrophil Count Absolute Lymph 2.00 1.0 - 4.8 K/UL [facility] Count Absolute 0.43 0 - 0.80 K/UL [facility] Monocyte Count Absolute 0.16 0 - 0.45 K/UL [facility] Eosinophil Count Absolute 0.05 0 - 0.20 K/UL [facility] Basophil Count Specimen Performing Organization Address [facility] P lemuel Number [facility] [address] [place] [address] * COMPREHENSIVE METABOLIC PANEL (12/08/2020 10:54 AM CDT) Sodium 139 137 - 147 MMOL/L [facility] Potassium 4.0 3.5 - 5.1 MMOL/L [facility] Chloride 106 98 - 110 MMOL/L [facility] Glucose 88 70 - 100 MG/DL [facility] Blood Urea 8 7 - 25 MG/DL [facility] Nitrogen Creatinine 1.09 (H) 0.4 - 1.00 MG/DL [facility] Calcium 9.0 8.5 - 10.6 MG/DL [facility] Total Protein 6.1 6.0 - 8.0 G/DL [facility] Total Bilirubin 0.2 (L) 0.3 - 1.2 MG/DL [facility] Albumin 3.8 3.5 - 5.0 G/DL [facility] Alk Phosphatase 54 25 - 110 U/L [facility] AST (SGOT) 14 7 - 40 U/L [facility] CO2 27 21 - 30 MMOL/L [facility] ALT (SGPT) 14 7 - 56 U/L [facility] Anion Gap 6 3 - 12 [facility] eGFR Non 54 (L) >60 mL/min [facility] Comment: English The eGFR is not validated f or use in drug dosing adjustments. Continue to use estimated creatinine clearance per dosing reference text. Please contact the Clinical Pharmacist for questions. eGFR >60 >60 mL/min [facility] English Comment: The eGFR is not validated for use in drug dosing adjustments. Continue to use estimated creatinine clearance per dosing reference text. Please contact the Clinical Pharmacist for questions. Specimen Performing Organization Address [facility] P lemuel Number [facility] [address] [place] [address] * MRI BREAST BILAT WO/W CONTRAST (12/08/2020 10:43 AM CDT) Specimen Impressions Performed At ASSESSMENT: BIRAD 6-Known biopsy proven malignancy [facility] RES[facility] RECOMMENDATION: Follow-up with your physician. Narrative [place] [facility] BREAST BILAT W/O W CONTRAST: DECEMBER 08 - [facility] CLINICAL HISTORY: Patient has known car cinoma of the right breast. She presents for pre-surgical p alvaro to determine extent of disease in the right breast a nd to exclude additional malignancy in both breasts. Technique: Bilateral breast MRI was performed with dedicated breast coil, with and without contrast in the axial plane using fat saturation, 3D, and with additional T1 and T2 axial images obtained. Images were interpreted with the aid of CAD, including 3D generation of MIP images, subtractio ns, and pharmacokinetic analysis. 0.2 ml/kg of Multihance (gado linium) was injected in bolus fashion. Post processing techniques: Time-intensity curves, pre- and post-co ntrast subtraction sequences, sagittal and coronal reconst ructed images, [employer] CAD analysis, and 3-D images (MIPS), were o btained. Findings: The tissue of both breast is composed o f scattered fibroglandular densities. Following intravenous gado linium administration there is mild background glandular enha ncement of both breasts. LEFT BREAST: There is no area of suspic ious enhancement in the left breast. No adenopathy, skin or nip ple abnormalities are identified. RIGHT BREAST: Within the superior right breast at the known cancer there is a 1.3 cm irregular enha ncing mass consistent with known cancer. Small amount of adjacent non mass enhancement with entire area measuring 2.1 cm. No other suspicious findings are present of the right breast. No abnorma l axillary lymph nodes. INCIDENTAL FINDINGS: None IMPRESSION: 1. Mass and non mass enhancement superi or right breast corresponds to the patient's known ivanna st cancer. 2. No MRI evidence of left breast cance r. Finalized by Ronn Vega M.D. on 03/2021 11:10 AM. Dictated by Ronn Vega M.D. on 11/27 11:06 AM. Electronically signed and approved by: Ronn Vega M.D. [id number] Procedure Note Interface, Radiant Results - 12/08/2020 11:15 AM CDT [facility] [place] BREAST BILAT W/O W CONTRAST: DECEMBER 08, 2020 - CLINICAL HISTORY: Patient has known carcinoma of the right breast. She presents for pre-surgical planning to determine extent of disease in the right breast and to exclude additional malignancy in both breasts. Technique: Bilateral breast MRI was performed with dedicated breast coil, with and without contrast in the axial plane using fat saturation, 3D, and with additional T1 and T2 axial images obtained. Images were interpreted with the aid of CAD, including 3D generation of MIP images, subtraction s, and pharmacokinetic analysis. 0.2 ml/kg of Multihance (gadolinium) was injected in bolus fashion. Post processing techniques: Time-intensity curves, pre- and post-contrast subtraction sequences, sagittal and coronal reconstructed images, [employer] CAD analysis, and 3-D images (MIPS), were obtained. Findings: The tissue of both breast is composed of scattered fibroglandular densities. Following intravenous gadolinium administration there is mild background glandular enhancement of both breasts. LEFT BREAST: There is no area of suspicious enhancement in the left breast. No adenopathy, skin or nipple abnormalities are identified. RIGHT BREAST: Within the superior right breast at the known cancer there is a 1.3 cm irregular enhancing mass consistent with known cancer. Small amount of adjacent non mass enhancement with entire area measuring 2.1 cm. No other suspicious findings are present of the right breast. No abnormal axillary lymph nodes. INCIDENTAL FINDINGS: None IMPRESSION: 1. Mass and non mass enhancement superio r right breast corresponds to the patient's known breast cancer. 2. No MRI evidence of left breast cancer . Finalized by Ronn Vega M.D. on 12/08/2020 11:10 AM. Dictated by Ronn Vega M.D. on 12/08/2020 11:06 AM. Electronically signed and approved by: Ronn Vega M.D. [id number] IMPRESSION ASSESSMENT: BIRAD 6-Known biopsy proven malignancy RECOMMENDATION: Follow-up with your physician. Performing Organization Address City/State/ZIP Code P lemuel Number [facility] RESULTS documented in this encounter Visit Diagnoses Diagnosis Malignant neoplasm of upper-inner quadr ant of right breast in female, estrogen receptor negative (HCC) documented in this encounter Administered Medications Action Date Dose Rate Site Medication Order MAR Action 12/08/2020 10:41 AM CDT 20 mL gadobenate dimeglumine (MULTIHANCE) Given injection 20 mL 20 mL, Intravenous, ONCE, 1 dose, On Th u 12/08/20 at 1045, NOTE: This is a HIGH ALERT Medication. 12/08/2020 10:41 AM CDT 50 mL sodium chloride PF 0.9% injection 50 mL Given 50 mL, Intravenous, ONCE, 1 dose, On Th u 12/08/20 at 1045, DO NOT SEND this medication unless it is requested. This med is usually available in floor stock . documented in this encounter Additional Health Concerns Assessment Noted Time A fall risk assessment has been completed for the pat ient 12/06/2020 2:50 PM CDT PHQ-2 Depression Total Score: 0 12/01/2020 10:33 AM CDT documented as of this encounter
--- OUTSIDE RECORDS SUMMARY | 2020-12-24 18:13 | XMS REPORT | Encounter Summary ---
Author Author [facility] Organization [facility] Address Unknown Phone Unavailable Care Team Providers Care Director Hr Communications Name Role Phone Juan Miguel Jacobs MD PCP Reason for Referral * Consult, Test & Treat (Routine) Referred By Contact Referred To Contact Status Reason Specialty Diagnoses / Procedures Jodi Avila MD [address] [place] [address] Cc - Ww Cl Exm/Proc Rm 2650 [facility]. [place], [place] Authorized Specialty Services Oncology Diagnoses Required Malignant neoplasm of upper-inner quadrant of right breast in female, estrogen receptor negative (HCC) Electronically signed by Jodi Avila MD at * Consult, Test & Treat (Urgent) Referred By Contact Referred To Contact Status Reason Specialty Diagnoses / Procedures Jodi Avila MD [address] [place] [address] Cc - Ww Cl Exm/Proc Rm 2650 [facility]. [place], [place] Authorized Specialty Services Oncology Diagnoses Required Malignant neoplasm of upper-inner quadrant of right breast in female, estrogen receptor negative (HCC) Comments [facility] Next available provider Electronically signed by Jodi Avila MD at * Radiology Services (Routine) Referred By Contact Referred To Contact Status Reason Specialty Diagnoses / Procedures Jodi Avila MD [address] [place] [address] [address] [place] [id number] Authorized Radiology Diagnoses Malignant neoplasm of upper-inner quadrant of right breast in female, estrogen receptor negative (HCC) P rocedures MRI BREAST BILAT WO/W CONTRAST Electronically signed by Jodi Avila MD at * Consult, Test & Treat Referred By Contact Referred To Contact Status Reason Specialty Diagnoses / Procedures Jodi Avila MD [address] [place] [address] Exm/Proc Rm [address] [place] [address] Authorized Specialty Services Oncology Diagnoses Required Malignant neoplasm of upper-inner quadrant of right breast in female, estrogen receptor negative (HCC) Scheduling Instructions Lymphedema Prevention Clinic Locations: [place] : [phone] [place] [address]: [phone] [facility] Exam [facility] [place] [address] Electronically signed by Jodi Avila MD at Reason for Visit * Reason Comments Heme/Onc Care * Consult, Test & Treat (Routine) Referred By Contact Referred To Contact Status Reason Specialty Diagnoses / Procedures Fabrizio Hammond MD [address] [place] [address] New Request Encounter Details Care Team Description Date Type Department Jodi Avila MD [address] [place] [address] [phone] Malignant neoplasm of upper-inner quadra nt of right breast in female, estrogen receptor negative (HCC) (Primary Dx) 12/01/2020 Office Visit Oncology: Abraham salomon, [facility] [address] [place] [address] Social History Date Tobacco Use Types Packs/Day [...] Signs Reading Time Taken Comments Vital Sign 107/55 12/01/2020 10:30 AM CDT Blood Pressure 80 12/01/2020 10:30 AM CDT Pulse 36.3 C (97.4 F) 12/01/2020 10:30 AM CDT Temperature - - Respiratory Rate 100% 12/01/2020 10:30 AM CDT Oxygen Saturation - - Inhaled Oxygen Concentration 103.2 kg (227 lb 9.6 oz) 12/01/2020 10:30 AM CDT Weight 174.6 cm (5' 8.75") 12/01/2020 10:30 AM CDT Height 33.86 12/01/2020 10:30 AM CDT Body Mass Index documented [...] Date End Date Prescription Sig Dispensed Refills 12/01/2020 12/22/2020 varenicline (CHANTIX Take 0.5mg by 53 tablet 0 STARTING MONTH BOX) 0.5 mouth daily mg (11)- 1 mg (42) tablet for 3 days, then increase to 0.5mg by mouth twice daily for 4 days, then increase to 1mg by mouth twice daily. documented in this encounter Progress Notes * Jodi Avila MD - 12/01/2020 11:00 AM CDT Name: Divina Sanchez : 1970 AGE: 50 y.o. DATE OF SERVICE: 12/01/2020 Reason for Visit: Heme/Onc Care Divina Sanchez is a 50 y.o. female. 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 Sanchez is a female who presented to the [facility] on 12/01/2020 at age 50 with her for evaluation of right breast cancer. Ms Ramon Sanchez had no complaints prior to her outside screening mammogram in October 16. She states it had been several years since she had a mammogram. At that time a new right breast mass was seen. Diagnostic mammogram and ultrasound 10/20/20 c onfirmed the presence of an irregular 1 cm spiculated mass at 1:00 and biopsy wa s recommended. Right breast sono-guided biopsy 10/25/20 ([facility]) revealed grade 3 invasive ductal carcinoma with ductal carcinoma in situ. She states she had re ceived initial consultation from med onc and a general surgeon who recommended s urgery first and that she come to for 2nd opinion. She denies a history of br east biopsies or procedures. She has no significant medical history other than s he is a current smoker (4 years of ~1/2 ppd). 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 She performs daily activities without difficulty. She is uncertain of her family history, mother was adopted and she was not close with her father. She is currently scheduled for a BRENNAN/BSO tomorrow 12/02/20 for abnormal uterine bleedin g/ovarian cyst. BREAST IMAGING: Mammogram: -- Bilateral screening mammogram 10/04/20 ([place]) revealed heterogeneously de nse breast tissue. A solitary small lobulated and possibly spiculated nodule was present in the right breast superiorly near the chest wall that measured 6 mm a nd was seen best on MLO projection. No worrisome calcification. No obvious axill oscar lymphadenopathy. -- Right diagnostic mammogram 10/20/20 ([place]) revealed an irregular 6 mm ma ss at 1:00 adjacent to the pectoral muscle. Ultrasound: -- Right breast ultrasound 10/20/20 ([place]) revealed an irregular hypoechoic mass at 1:00, 10 cm FTN. The mass was immediately adjacent to the pectoral musc le. It measured 1 x 0.8 x 0.7 cm. It had irregular margins and posterior shadowi ng. The mass was oriented perpendicular to the skin surface. -- Targeted right breast ultrasound 12/01/20 () revealed irregular not parallel hypoechoic mass with spiculated margins within the right breast at 12:30, 10 cm from the nipple measuring 1.1 x 0.9 x 0.9 cm. Adjacent echogenicity likely repre sented the tissue marker clip. This was consistent with the biopsy-proven malign devan. No morphologically suspicious right axillary lymph nodes. 4 morphologicall y normal lymph nodes were documented. No suspicious parasternal/internal mammary lymph nodes were seen. REPRODUCTIVE HEALTH: Age at first Menarche: 15 Age at First Live : 23 Age at Menopause: n/a : 5 Para: 5 : no PERTINENT PMH: Tobacco abuse FAMILY HISTORY: No paternal family history of breast or ovarian cancers. Mother is adopted and does not know her family history of cancers in biological family PHYSICAL EXAM on PRESENTATION: normal MEDICAL ONCOLOGY: Dr. Fabrizio Hammond REFERRED BY: Dr. Fabrizio Hammond Medical History: Diagnosis Date Arthritis Back pain defect Bleeding disorder (HCC) Breast cancer (HCC) Hip dysplasia Vision decreased Surgical History: Procedure Laterality Date SECTION HERNIA REPAIR HIP REPLACEMENT KNEE SURGERY Family History Problem Relation Age of Onset Cancer-Prostate Paternal Uncle Social History Socioeconomic History Marital status: Spouse [...] file Social History Narrative Not on file Review of Systems Constitutional: Positive for activity change, appetite change, chills, sweats, f atigue. HENT: Negative for hearing loss, congestion, rhinorrhea and tinnitus. Eyes: Negative for pain, discharge and itching. Respiratory: Negative for cough, chest tightness and shortness of breath. Cardiovascular: Negative for chest pain and palpitations. Gastrointestinal: Negative for abdominal distention, pain, nausea, vomiting, and diarrhea. Genitourinary: Positive for vaginal bleeding. Negative for frequency, difficulty urinating and pelvic pain. Musculoskeletal: Negative for myalgias, back pain, joint swelling and arthralgia s. Skin: Pale skin/pallor. Negative for rash. Neurological: Positive for weakness. Negative for dizziness, light-headedness an d headaches. Hematological: Does not bruise/bleed easily. Psychiatric/Behavioral: Negative for disturbed wake/sleep cycle. The patient is not nervous/anxious. Positive for decreased concentration. Objective: No current outpatient medications on file. Vitals: 12/01/20 1030 BP: 107/55 BP Source: Arm, Left Upper Patient Position: Sitting Pulse: 80 Temp: 36.3 C (97.4 F) TempSrc: Temporal SpO2: 100% Weight: 103.2 kg (227 lb 9.6 oz) Height: 174.6 cm (68.75") PainSc: Zero Body mass index is 33.86 kg/m. Pain Score: Zero Fatigue Scale: 7 Pain Addressed: Current regimen working to control pain. Patient Evaluated for a Clinical Trial: Patient currently in screening for a [facility] clinical trial. Eastern Cooperative Oncology Group performance status is 0, Fully active, able t o carry on all pre-disease performance without restriction. Physical Exam RIGHT BREAST EXAM: Breast: No palpable masses, skin changes, nipple discharge Skin Erythema: No Attachment of Overlying Skin: No Peau d' orange: No Chest Wall Attachment: No Nipple Inversion: No Nipple Discharge: No LEFT BREAST EXAM: Breast: No palpable masses, skin changes, nipple discharge Skin Erythema: No Attachment of Overlying Skin: No Peau d' orange: No Chest Wall Attachment: No Nipple Inversion: No Nipple Discharge: No RIGHT MYRA BASIN EXAM: Axillary: negative Infraclavicular: negative Supraclavicular: negative LEFT MYRA BASIN EXAM: Axillary: negative Infraclavicular: negative Supraclavicular: negative Constitutional: Alert, cooperative, NAD Eyes: non-icteric, no discharge, pupils are equal, round ENT: NCAT, moist mucous membranes Cardiovascular: normal rate, regular rhythm Respiratory: non-labored respirations on RA, sounds, normal effort, no respirato ry distress GI: abdomen soft, non-distended Skin: warm, dry, no rashes or erythema, no cyanosis Musculoskeletal: normal range of motion, no edema Neuro: alert and orientated, moves all extremities Psych: mildly anxious, behavior is normal, judgment and thought content normal Lymphatic: no evidence of upper or lower extremity lymphedema Assessment and Plan: DIAGNOSIS: Right grade 3 IDC (ER/PR0%, 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 We discussed the natural history of breast cancer from in situ to invasive disease. We discussed the need for a multidisciplinary approac h to breast cancer treatment with local and systemic therapy. We discussed that due to the triple negative nature of her breast cancer and that she is premenop ausal I would recommend neoadjuvant chemotherapy prior to surgical intervention. She states she would like a referral to medical oncology here at [facility] so we wi ll place that order STAT. We reviewed her imaging results including the additio nal targeted imaging. We discussed the need for additional imaging with MRI of t he breasts. With her recently diagnosed cancer we will be able to fully evaluate the breasts and the extent of disease which could alter surgical planning. We a lso discussed the ability of MRI to detect additional areas of concern that coul d warrant additional biopsy. She expressed her understanding and wishes to proc eed. We will also plan to obtain an MRI at the end of neoadjuvant therapy prior to surgical intervention to assess treatment response and help with final surgic al planning. We discussed local treatment options of the breast in detail including lumpectom y with adjuvant radiation as well as mastectomy. Similar risk of local/regional recurrence with BCT and mastectomy, with no survival benefit for mastectomy. We discussed the need for adjuvant radiation following lumpectomy. We discussed to reyna versus skin sparing mastectomy with reconstruction in a phased process. She is a current every day smoker. We spent more than three minutes discussing smo diya cessation and smoking's impact on her breast cancer diagnosis and increasin g surgical complications. We also discussed that the plastic surgeons would like ly not offer reconstruction if she is currently smoking. She was provided with a smoking cessation handout and a prescription for Chantix. We discussed possible side effects of Chantix and she will also discuss smoking cessation with her P CP. We also discussed the need for SLNB to evaluate for myra metastasis and and pat hologic staging. Depending on if she decides lumpectomy or mastectomy the myra evaluation at the time of surgery will vary so we will discuss this further at s ubsequent visits. We discussed the risk of lymphedema associated with myra letty edwige. A baseline measurement with the BIS will be obtained and she will follow in our lymphedema clinic. Ms. Sanchez and her were given ample time to ask questions all which we re answered to her satisfaction. She expressed her understanding and are ready proceed with the plan as outlined above. She was provided contact information wa s encouraged to call with any follow-up questions or concerns. Summary of plan is as follows: -MRI bilateral breasts -Plan to hold off on BRENNAN/BSO currently scheduled 12/02/20 -Medical oncology consult [facility] for neoadjuvant chemotherapy -Genetic testing -Smoking cessation - Rx chantix -Return to clinic midway through chemotherapy - plan to consult plastic surgery at that time if she has stopped smoking -Plan for end of treatment MRI ATTESTATION I personally performed the blank portions of the E/M visit, discussed case with re ken and concur with resident documentation of history, physical exam, assessm ent, and treatment plan unless otherwise noted. Staff name: Jodi Avila MD Date: 12/01/2020 documented in this encounter Plan of Treatment Order Schedule Name Type Priority Associated Diag noses Expected: 12/01/2020 (Approximate), Expi res: 12/01/2021 MISCELLANEOUS LAB TEST Lab Routine Maligna nt neoplasm of upper-inner quadrant of right breast in female, estrogen receptor negative (HCC) Expected: 12/01/2020 (Approximate), Expi res: 12/01/2021 GENETIC TEST Lab Routine Malignant neopl asm of upper-inner quadrant of right breast in female, estrogen receptor negative (HCC) Order Schedule Name Type Priority Associated Diag noses Ordered: 12/01/2020 AMB REFERRAL TO Outpatient Routine Malignant neop lasm of LYMPHEDEMA PREVENTION Referral upper-inner quad rant of CLINIC right breast in female, estrogen receptor negative (HCC) Ordered: 12/01/2020 AMB REFERRAL TO ONCOLOGY Outpatient STAT Malig nant neoplasm of Referral upper-inner quadrant of right breast in female, estrogen receptor negative (HCC) Ordered: 12/01/2020 AMB REFERRAL TO GENETIC Outpatient Routine Malign ant neoplasm of COUNSELING Referral upper-inner quadran t of right breast in female, estrogen receptor negative (HCC) documented as of this encounter Results * MRI BREAST BILAT WO/W CONTRAST (12/08/2020 10:43 AM CDT) Specimen Impressions Performed At ASSESSMENT: BIRAD 6-Known biopsy proven malignancy [facility] RAD RESULTS RECOMMENDATION: Follow-up with your physician. Narrative Performed At [facility] MRI BREAST BILAT W/O W CONTRAST: DECEMBER [...] signed and approved by: Ronn Vega M.D. [id number] Procedure Note Interface, Radiant Results - 12/08/2020 11:15 AM CDT [id number] MRI BREAST BILAT W/O W CONTRAST: DECEMBER [...] signed and approved by: Ronn Vega M.D. [id number] IMPRESSION ASSESSMENT: BIRAD 6-Known biopsy proven malignancy RECOMMENDATION: Follow-up with your physician. Performing Organization Address City/State/ZIP Code P lemuel Number [facility] RAD RESULTS documented in this encounter Visit Diagnoses Diagnosis Malignant neoplasm of upper-inner quadr ant of right breast in female, estrogen receptor negative (HCC) - Primary documented in this encounter Historical Medications * This list may reflect changes made after this encounter. Start Date End Date Medication Sig Dispensed Refills omeprazole DR (PRILOSEC) Take 20 mg by 0 20 mg capsule mouth at bedtime daily. docusate sodium (STOOL Take by 0 SOFTENER PO) mouth as Needed. ferrous sulfate (FEOSOL) Take 325 mg 0 325 mg (65 mg iron) by mouth as tablet Needed. Take on an empty stomach at least 1 hour before or 2 hours after food. docosahexaenoic acid/epa Take 500 mg 0 (FISH OIL PO) by mouth daily. loratadine (CLARITIN) 10 Take 1 tablet 0 mg tablet by mouth twice daily. 09/22/2020 venlafaxine XR (EFFEXOR TAKE 1 0 XR) 75 mg capsule CAPSULE BY MOUTH ONCE DAILY WITH FOOD FOR 90 DAYS 09/22/2020 venlafaxine XR (EFFEXOR TAKE 1 0 XR) 150 mg capsule CAPSULE BY MOUTH ONCE DAILY WITH FOOD FOR 90 DAYS 12/15/2020 cyanocobalamin (vitamin Take by 0 B-12) (VITAMIN B12 PO) mouth. added in this encounter Additional Health Concerns Assessment Noted Time A fall risk assessment has been completed for the pat ient 12/01/2020 10:33 AM CDT PHQ-2 Depression Total Score: 0 12/01/2020 10:33 AM CDT documented as of this encounter
--- OUTSIDE RECORDS SUMMARY | 2020-12-24 18:13 | XMS REPORT | Encounter Summary ---
Author Author [facility] Organization [facility] Address Unknown Phone Unavailable Care Team Providers Care News Editor Name Role Phone Juan Miguel Jacobs MD PCP Reason for Visit * Reason Onset Date Comments Care Coordination 12/14/2020 Encounter Details Care Team Description Date Type [place] [address], [place] [address] [phone] Care Coordination 12/14/2020 [facility] [address], [place] [phone] Social History Date Tobacco Use Types Packs/Day [...] impairment: No documented as of this encounter Miscellaneous Notes * Telephone Encounter - Yuliya López, LORETTA - 12/14/2020 3:12 PM CDT Divina left a message that she was calling to schedule Port. I tried to call her back and her voice mail was full. I did send an email to Mary and Emily that she was wanting to schedule Port. documented in this encounter Plan of Treatment [...]
--- OUTSIDE RECORDS SUMMARY | 2020-12-24 18:13 | XMS REPORT | Encounter Summary ---
Author Author [facility] Organization [facility] Address Unknown Phone Unavailable Care Team Providers Care Hypercil Core Transformer Assembler Name Role Phone PCP Unavailable Encounter Details Care Team Description Date Type Department 10/25/2020 Hospital Imaging: [facility], Encounter [facility] [address] [place] [address] Social History Date Tobacco Use Types Packs/Day Years Used Never Assessed Sex Assigned at Date Recorded Female 12/15/2020 7:49 AM CDT documented as of this encounter Medications at Time of Discharge Start Date End Date Medication Sig Dispensed Refills 09/22/2020 venlafaxine XR (EFFEXOR TAKE 1 0 XR) 150 mg capsule CAPSULE BY MOUTH ONCE DAILY WITH FOOD FOR 90 DAYS 09/22/2020 venlafaxine XR (EFFEXOR TAKE 1 0 XR) 75 mg capsule CAPSULE BY MOUTH ONCE DAILY WITH FOOD FOR 90 DAYS documented as of this encounter Discharge Disposition Code Departure Means Destination Disposition Home Home or Self Care documented in this encounter Plan of Treatment Not on filedocumented as of this encounter Procedures Comments Procedure Name Priority Date/Time Associated Diag nosis US BREAST BIOPSY EXTERNAL Routine 10/25/2020 IMAGING 12:00 AM CDT documented in this encounter Results * US BREAST BIOPSY EXTERNAL IMAGING (10/25/2020 12:00 AM CDT) Specimen Narrative Performed At This order has been auto finalized and does not contain a result. documented in this encounter Visit Diagnoses Not on filedocumented in this encounter
--- OUTSIDE RECORDS SUMMARY | 2020-12-24 18:13 | XMS REPORT | Encounter Summary ---
Author Author [facility] Organization [facility] Address Unknown Phone Unavailable Care Team Providers Care Tank Car Mechanic Name Role Phone Self, Juan Miguel AMBROCIO PCP Encounter Details Care Team Description Date Type Department Jodi Talley MD [address] [place] [address] Malignant neoplasm of unspecified site o f right female breast (HCC) 11/29/2020 Hospital Laboratory: Main Ca mpus, Encounter Main [facility] [address] [facility] [address], [address] [place] [address] Social History Date Tobacco Use Types Packs/Day Years Used Never Assessed Sex Assigned at Date Recorded Female 12/15/2020 7:49 AM CDT Date Recorded COVID-19 Exposure Response 11/21/2020 9:36 AM CDT In the last month, have you been in contact with No / Unsure someone who was confirmed or suspected to have Coronavirus / COVID-19? documented as of this encounter Medications at [...] Procedure Name Priority Date/Time Associated Diag nosis NV CONSLTJ&REPRT SLIDES 11/29/2020 PREPARED ELSEWHERE 8:39 AM CDT PATHOLOGY REPORTS FROM 11/29/2020 OUTSIDE SCAN 12:00 AM CDT documented in this encounter Results * OUTSIDE PATHOLOGY CONSULT (11/29/2020 8:39 AM CDT) PATHOLOGY [email or web address] Department of Pathology and Laboratory Medicine [address] [place] [address] Surgical Pathology Office: [phone] PATHOLOGY CONSULTATION NAME: SHANIKA SANCHEZ SURG PATH #: [id number] MR #: [id number] ALT ID #: LOCATION: [facility] DATE OF PROCEDURE: 11/29/2020 AGE: 50 SEX: F DATE RECEIVED: 11/29/2020 : 1970 TIME RECEIVED: 08:39 PHYSICIAN: JODI TALLEY DATE OF REPORT: 11/29/2020 COPY TO: DATE OF PRINTIN11/29/2020 OUTSIDE INSTITUTION: [facility] [address] [place] [address] ############################## ############################## ############ Final Diagnosis: A. Outside case "[id number]" (Date Collected: 10/25/2020): 1. Right breast, 1:00 10 cm from nipple, ultrasound guided core needle biopsy of a solid spiculated mass: Invasive ductal carcinoma, histologic grade 3 (see comment). Ductal carcinoma in situ, high grade, solid type. Comment: Thank you for the opportunity to participate in the review of this case. I am in agreement with the outside institution. Invasive Carcinoma of the Breast: Biopsy CAP Version: Biopsy 1.1.0.0 Procedure: Ultrasound-guided core biopsy Laterality: Right Tumor Site: 10:00, 10 cm from the nipple Histologic Type: Invasive ductal carcinoma Size: The entire tumor size is not known. The single greatest linear length is 0.5 cm and invasive tumor involves 2 of 4 cores. Histologic Grade ([place] Histologic Score): III/III Tubule Formation: 3 Nuclear Grade: 3 Mitotic Count (40x objective): 2 Total Femi Score: 8/9 DCIS: Present Architectural Patterns: Solid Nuclear Grade: 3 Necrosis: Not identified Lymphovascular Invasion: Not identified Microcalcifications: Not identified Prognostic markers: Prognostic markers performed at the outside institution. The slides are available for review and demonstrate the below results Time between tumor removal and placement into formalin < 1 hour: Yes, per report Fixation between 6-72 hours: Yes, per report Breast Cancer Prognostic Panel by Manual IHC Semi-Quantitative Analysis Testing performed on block number: A1 Estrogen Receptor (ER): <1% Negative Stain Intensity: Weak Note: Internal control cells present and stain as expected. Progesterone Receptor (NV): <1% Negative Stain Intensity: Weak Note: Internal control cells present and stain as expected. Her2: 0 Negative Ki-67: 70% Attestation: By this signature, I attest that I have personally formulated the final interpretation expressed in this report and that the above diagnosis is based upon my examination of the slides and/or other material indicated in this report. +++ +++ mr/11/29/2020 ############################## ############################## ############ Material Received: A: Outside Slides, x6 slides, [id number], [facility], [address], [place] [address] History: 50-year-old female. Gross Description: A. Received are six (6) total outside slides and a report labeled "[id number]". mr/11/29/2020 If immunohistochemical stains and/or in situ hybridization are cited in this report, the performance characteristics were determined by the Department of Pathology and Laboratory Medicine of the [facility] ([employer]) in compliance with CLIA'88 regulations. Some of these tests rely on the use of "analyte specific reagents" and are subject to specific labeling requirements by the FDA. Known positive and negative control tissues demonstrate appropriate staining. Results should be interpreted with caution given the likelihood of false negativity on decalcified specimens. This testing was developed by the Department of Pathology and Laboratory Medicine of the [facility]. It has not been cleared or approved by the FDA. The FDA has determined that such clearance or approval is not necessary. Specimen Performing Organization Address City/State/ZIP Code P lemuel Number MAIN LAB [address] [place] [address] * PATHOLOGY REPORTS FROM OUTSIDE SCAN (11/29/2020 12:00 AM CDT) Narrative Performed At This result has an attachment that is n ot available. Ordered by an unspecified provider. documented in this encounter Visit Diagnoses Not on filedocumented in this encounter Additional Health Concerns Assessment Noted Time A fall risk assessment has been completed for the pat ient 11/25/2020 12:00 PM CDT documented as of this encounter
--- OUTSIDE RECORDS SUMMARY | 2020-12-24 18:13 | XMS REPORT | Encounter Summary ---
Author Author [facility] Organization [facility] Address Unknown Phone Unavailable Care Team Providers Care Actuary Clerk Name Role Phone Self, Juan Miguel AMBROCIO PCP Reason for Visit * Auth/Cert Referred By Contact Referred To Contact Status Reason Specialty Diagnoses / Procedures Diagnoses Malignant neoplasm of upper-inner quadrant of right breast in female, estrogen receptor negative (HCC) Malignant neoplasm of upper-inner quadrant of right breast in female, estrogen receptor negative (HCC) [C50.211, Z17.1] P rocedures [place] INSJ TUNNELED CTR VAD W/SUBQ PORT AGE 5 YR/> [place] FLUORO CENTRAL VENOUS ACCESS DEV PLACEMENT INSERTION TUNNELED CENTRAL VENOUS ACCESS DEVICE WITH SUBCUTANEOUS PORT - AGE 5 YEARS AND OVER FLUOROSCOPIC GUIDANCE CENTRAL VENOUS ACCESS DEVICE PLACEMENT/ REPLACEMENT/ REMOVAL Encounter Details Care Team Description [place] [address] [place] [address] [phone] INSERTION TUNNELED CENTRAL VENOUS ACCESS DEVICE WITH SUBCUTANEOUS PORT - AGE 5 YEARS AND OVER 12/16/2020 Surgery Operating Room: Leon Arizmendi, [facility] [address] [place] [id number] Surgery Details Trauma Case? Date/Time Status Location OR Service Patient Class Case Class Case Type 12/16/20 Posted IC2 OR ICC OR 6 Surgery Outpatient Electiv e - 10:38 AM General Surgery Treating conditions that are not life or limb threatenin g Panel 1 Procedure LRB Anes Op Region Wound Class Com ments INSERTION TUNNELED Left Monitored Chest Clean CENTRAL VENOUS ACCESS Anesthesia DEVICE WITH SUBCUTANEOUS Care (MAC) PORT - AGE 5 YEARS AND OVER FLUOROSCOPIC GUIDANCE Left Monitored NA CENTRAL VENOUS ACCESS Anesthesia DEVICE PLACEMENT/ Care (MAC) REPLACEMENT/ REMOVAL Panel Surgeon Surgeon Role Service 1 Neftali Washburn, Primary Surgery General 1 Sai Rosen MD Resident - Assisting Surgery Gene ral Social History Date Tobacco Use Types Packs/Day [...] Signs Reading Time Taken Comments Vital Sign 114/69 12/16/2020 11:15 AM CDT Blood Pressure 71 12/16/2020 11:15 AM CDT Pulse 36.7 C (98 F) 12/16/2020 11:00 AM CDT Temperature - - Respiratory Rate 98% 12/16/2020 11:15 AM CDT Oxygen Saturation - - Inhaled [...] PHONE LINES DOWN. [address] GILLETTE [facility] READING ROOM AND VERBALLY TOLD POR T PLACEMENT GOOD. PATIENT D/C'D * Kapil Underwood RN - 12/16/2020 11:14 AM CDT PATIENT STABLE. AT BEDSIDE. CHEST XRAY COMPLETED FOR LEFT PORT PLACEMENT . D/C INSTRUCTIONS GIVEN TO AND REVIEWED WITH PATIENT. BELONGINGS WITH P ATIENT. documented in this encounter H&P Notes * Sai Rosen MD - 12/16/2020 9:34 AM CDT General [...] Procedure Laterality Date SECTION 2007 HERNIA REPAIR 2008 HIP REPLACEMENT 2016 left hip KNEE SURGERY Left -2015 multiple [...] Rosen MD General Surgery, Chief Resident Pager #[phone] Associated attestation - Neftali Washburn DO - [...] 50 y.o. female : 1970 M RN#: [id number] DATE OF OPERATION: 12/16/2020 Surgeon(s) and Role: [...] at the level of the bend of t he clavicle, walked down the clavicle, turned towards [...] 15 blade, transverse incision was created in t he infraclavicular area to encompass the entrance of [...] previously created subcutaneous pocket and attached to t he anterior chest wall with interrupted sutures of 2-0 Vicryl. Port was accesse d through the skin with a Khan needle, aspirated good bloody flow, and flushed with injectable saline. Subcutaneous tissues were reapproximated with interrupt ed sutures of 3-0 Vicryl, skin was closed with running 4-0 Monoderm Stratafix simth ture in subcuticular fashion. Final fluoroscopic confirmation [...] resident. and I was present for t entire procedure. Complications: None Implants: Implant Name Type Inv. Item Serial No. Inventory Analyst Lot No. LRB No. Used Action PORT IMPLANTABLE INFUSION POWERPORT CLEARVUE 6FR SLIM SUTURE - SN/A PORT IMPLAN TABLE INFUSION POWERPORT CLEARVUE 6FR SLIM SUTURE N/A C [employer] [id number] Left 1 Implanted Drains: None Disposition: PACU [...] and does not conta in a result. [facility] Performing Organization Address City/State/ZIP Code P lemuel Number [facility] documented in this encounter Visit Diagnoses Diagnosis Malignant neoplasm of upper-inner quadr ant of right breast in female, estrogen receptor negative (HCC) documented in this encounter Administered Medications Action Date Dose Rate Site Medication Order MAR Action 12/16/2020 10:46 AM CDT 2,000 Units heparin (porcine) injection Given INTRA-PROCEDURE MED, Starting on Sat12/16/20 at 1046, Until Sat12/16/20 at 1051, Intra-op 12/16/2020 11:51 AM CDT 10 mg oxyCODONE (ROXICODONE) tablet 5-10 mg Given 5-10 mg, Oral, ONCE PRN, 1 dose, Starting on Sat12/16/20 at 1128, Until Sat12/16/20 at 1151, Pain PO, For Pain Score <4, PACU (only) 12/16/2020 10:46 AM CDT 30 mL sodium chloride 0.9 % infusion Given - New INTRA-PROCEDURE MED(CONT), Starting on Bag Sat12/16/20 at 1046, Until Sat12/16/20 at 1046, Intra-op documented in this encounter Discontinued Medications Start Date End Date Medication Sig Discontinue Reason 12/15/2020 cyanocobalamin (vitamin Take by Removed from B-12) (VITAMIN B12 PO) mouth. BOX BLANK MACHINE OPERATOR Med List documented as of this encounter [...] Date Been Administered diphenhydrAMINE (BENADRYL) injection 25 1 12/16/2020 mg fentaNYL citrate PF (SUBLIMAZE) 1 2020 injection 25-50 mcg haloperidol lactate (HALDOL) injection 1 1 12/16/2020 mg lactated ringers infusion 1 12/16/2020 promethazine (PHENERGAN) injection 6.25 1 12/16/2020 mg First Ordered Date Diet Count Last Ordered [...]
--- OUTSIDE RECORDS SUMMARY | 2020-12-24 18:13 | XMS REPORT | Encounter Summary ---
Author Author [facility] Organization [facility] Address Unknown Phone Unavailable Care Team Providers Care Truck Mechanic Apprentice Name Role Phone Self, Juan Miguel AMBROCIO PCP Encounter Details Care Team Description Date Type Department 11/21/2020 Travel Social History Date Tobacco Use Types Packs/Day Years Used Never Assessed Sex Assigned at Date Recorded Female 12/15/2020 7:49 AM CDT Date Recorded COVID-19 Exposure Response 11/21/2020 9:36 AM CDT In the last month, have you been in contact with No / Unsure someone who was confirmed or suspected to have Coronavirus / COVID-19? documented as of this encounter Plan of Treatment Not on filedocumented as of this encounter Visit Diagnoses Not on filedocumented in this encounter
--- OUTSIDE RECORDS SUMMARY | 2020-12-24 18:13 | XMS REPORT | Encounter Summary ---
Author Author [facility] Organization [facility] Address Unknown Phone Unavailable Care Team Providers Care Media Strategist Name Role Phone Self, Juan Miguel AMBROCIO PCP Encounter Details Care Team Description Date Type Department 12/01/2020 Travel Social History Date Tobacco Use Types [...]
--- OUTSIDE RECORDS SUMMARY | 2020-12-24 18:13 | XMS REPORT | Encounter Summary ---
Author Author [facility] Organization [facility] Address Unknown Phone Unavailable Care Team Providers Care Automotive Glass Technician Name Role Phone Reynaldo, Juan Miguel AMBROCIO PCP Reason for Visit * Radiology Services (Routine) Referred By Contact Referred To Contact Status Reason Specialty Diagnoses / Procedures Jodi Avila MD [address] [place] [address] Canceled Radiology Diagnoses Malignant neoplasm of right breast in female, estrogen receptor negative, unspecified site of breast (HCC) P rocedures MAMMO DIAG BILAT Encounter Details Care Team Description Date Type Department Jodi Avila MD [address] [place], [place] [id number] Canceled (Office-Scheduling Error) 12/01/2020 Hospital Imaging Mammography : Encounter [facility] [address] [place] [phone] Social History Date Tobacco Use Types Packs/Day [...] filedocumented as of this encounter Visit Diagnoses Diagnosis Malignant neoplasm [...]
--- OUTSIDE RECORDS SUMMARY | 2020-12-24 18:13 | XMS REPORT | Encounter Summary ---
Author Author [facility] Organization [facility] Address Unknown Phone Unavailable Care Team Providers Care Wrapper And Preserver Name Role Phone Self, Juan Miguel AMBROCIO PCP Encounter Details Care Team Description Date Type Department 12/14/2020 Travel Social History Date Tobacco Use Types [...]
--- OUTSIDE RECORDS SUMMARY | 2020-12-24 18:13 | XMS REPORT | Encounter Summary ---
Author Author [facility] Organization [facility] Address Unknown Phone Unavailable Care Team Providers Care Vessel Captain Name Role Phone Reynaldo, Juan Miguel AMBROCIO PCP Encounter Details Care Team Description Date [place] [address] [address] [phone] 12/20/2020 Orders Only Oncology: Cancer [facility] [address] [address] Social History Date Tobacco Use Types [...]
--- OUTSIDE RECORDS SUMMARY | 2020-12-24 18:13 | XMS REPORT | Encounter Summary ---
Author Author [facility] Organization [facility] Address Unknown Phone Unavailable Care Team Providers Care Software Tools Engineer Name Role Phone Reynaldo, Juan Miguel AMBROCIO PCP Encounter Details Care Team Description Date [place] [address], [place] [address] [phone] 12/12/2020 Orders Only Oncology: Cancer [facility] [address] [address] Social History Date Tobacco Use [...]
--- OUTSIDE RECORDS SUMMARY | 2020-12-24 18:13 | XMS REPORT | Encounter Summary ---
Author Author [facility] Organization [facility] Address Unknown Phone Unavailable Care Team Providers Care Research Chief Engineer Name Role Phone Self, Juan Miguel AMBROCIO PCP Encounter Details Care Team Description Date Type Department Jodi Avila MD [address] [place] [address] Malignant neoplasm of right breast in fe male, estrogen receptor negative, unspecified site of breast (HCC) (Primary Dx) 11/21/2020 Orders Only Oncology: [facility] [address] [place] [phone] Social History Date Tobacco Use Types Packs/Day [...]
--- OUTSIDE RECORDS SUMMARY | 2020-12-24 18:13 | XMS REPORT | Encounter Summary ---
Author Author [facility] Organization [facility] Address Unknown Phone Unavailable Care Team Providers Care Hunter Guide Name Role Phone Juan Miguel Jacobs MD PCP Reason for Visit * Reason Onset Date Comments Heme/Onc Care 12/24/2020 Encounter Details Care Team Description Date [place] [address] [place] [address] [phone] Heme/Onc Care 12/24/2020 Telephone Oncology: Cancer Cyndee ru[facility] [place] [address] [place] [address] Social History Date Tobacco Use [...] encounter Miscellaneous Notes * Telephone Encounter - Steven Anders MD - 12/24/2020 5:48 PM CDT Her called back indicating the bleeding had actually worsened since my c onversation with her earlier in the day so he was taking him to the ER. He wond ered about a medicine that could be called in and I told him I do not know anyth ing that I would recommend. If the bleeding is that significant I think ER eval uation is appropriate and again that should not be exacerbated by a first dose o f chemotherapy within a week as her previous blood counts were normal so at as t checking those and having gynecologic input would be appropriate. documented in this encounter Plan of Treatment [...]
--- OUTSIDE RECORDS SUMMARY | 2020-12-24 18:13 | XMS REPORT | Encounter Summary ---
Author Author [facility] Organization [facility] Address Unknown Phone Unavailable Care Team Providers Care Area Attendant Name Role Phone Juan Miguel Jacobs MD PCP Reason for Visit * Reason Onset Date Comments Navigation Assessment 11/25/2020 Encounter Details Care Team Description Date Type Department Jodi Avila MD [address] [place] [address] [phone] Navigation Assessment 11/25/2020 Telephone Oncology: [address] [address] Social History Date Tobacco Use Types Packs/Day Years Used Never Assessed Sex Assigned at Date Recorded Female 12/15/2020 7:49 AM CDT Date Recorded COVID-19 Exposure Response 11/21/2020 9:36 AM CDT In the last month, have you been in contact with No / Unsure someone who was confirmed or suspected to have Coronavirus / COVID-19? documented as of this encounter Miscellaneous Notes * Telephone Encounter - Joanie Nguyen RN - 11/25/2020 12:38 PM CDT Navigation Intake Assessment Patient Name: Divina Sanchez : 1970 Insurance: [facility] Direct Referral: to Dr. Avila Appointment Info: Future Appointments Date Time Provider Department Center 12/01/2020 9:30 AM MAMMO - IC ROOM 1 [id number] ICC Radiolog 12/01/2020 10:00 AM SONO - IC BREAST ROOM 2 [id number] ICC Radiolog 12/01/2020 11:00 AM Jodi Avila MD [id number] [facility] Exam 12/01/2020 11:00 AM BIS IC1 BIOIMPEDENCE SPECTROSCOPY [id number] [facility] Exam Diagnosis & Reason for Visit: Second opinion from Dr. Avila for right breast cancer. Physician Info: Referring Physician: Dr. Fabrizio Hammond, Medical Oncologist Contact Name & Number: [phone] Surgeon: Dr. Eddie Kwong OUTDOOR STUDIES PROFESSOR: Dr. Wellington Bassett Location of Films: PACS Requested from [facility] on 11/17/20. Requested from [facility] on 11/25/20. Location of Pathology: Patient notified outside pathology slides will be obtain ed for review by [facility] pathologist and a facility and professional fee will be bill ed to their insurance. History of Present Illness: Divina was referred by her medical oncologist, Dr. Jimmy colvin, to have another opinion from a breast surgeon for the patient's right breast IDC. Divina saw a surgeon, DrRamon Kwong, and states that he recommended that she have her breast surgery and reconstruction at [facility]. Divina states that she has not received any chemotherapy or other medications to treat her breast cancer at this time. TIMELINE: 10/04/20 Bilateral screening mammogram at [facility] Impression: right nod ular asymmetry. Recommend spot compression views. 10/20/20 Right diagnostic mammogram and right breast ultrasound at [facility] Impression: ultrasound guided core needle biopsy recommended of right breast mass. 10/25/20 Right breast ultrasound guided biopsy at [facility] Diagnosis: IDC, grade 3. ER <1%, AK <1%, HER2 by IHC 0. 10/26/[address] Ocampo Pathology report has been requested. 12/02/20 Scheduled for hysterectomy and bilateral oophorectomy by Dr. Ocampo Family History of Breast Cancer: No paternal family history of breast or ovarian cancers. Mother is adopted and does not know her family history of cancers in biological family. Menopausal Status: Premenopausal. Divina states that she is going to have a hys terectomy and bilateral oophorectomy by Dr. Ocampo at [facility] on 12/02/20. Personal History of Other Cancers: Divina had a uterine biopsy on 09/29/20 that wa s benign. Records are requested. NEEDS Assessment: Genetic Counseling: Genetic Assessment: Reports two or more family members diagnosed with the same c ancer Genetic Intervention: Provided information about available services;Services dec lined at this time Divina states that Dr. Hammond discussed genetic testing with her and will "order this down the line." Nutrition: Additional Nutrition Assessment: No concerns identified Social & Financial: Social and Financial Assessment: Reports adequate support system Tobacco assessment last 30 days: Patient has used tobacco products within the la st 30 days Social and Financial Intervention: Provided information about available services Spiritual & Emotional: Spiritual and Emotional Assessment: Reports feeling and/or sounds anxious, worri ed or irritable;Reports adequate support system Spiritual and Emotional Intervention: Emotional Support provided;Provided inform ation about available services Physical: Fall Risk: None identified Communication: Communication Barrier: No Onc Fertility: Onc Fertility Assessment: Other (Comment) premenopausal and scheduled for a cyst ectomy and bilateral oophorectomy on 12/02/20. Onc Fertility Intervention: Provided information about available services;Santosh frank declined at this time COVID-19 guidelines reviewed with patient, including: visitor and universal mask ing policies, and a temperature check at the facility entrance upon arrival. documented in this encounter Plan of Treatment Not on filedocumented as of this encounter Visit Diagnoses Not on filedocumented in this encounter Additional Health Concerns Assessment Noted Time A fall risk assessment has been completed for the pat ient 11/25/2020 12:00 PM CDT documented as of this encounter
--- OUTSIDE RECORDS SUMMARY | 2020-12-24 18:13 | XMS REPORT | Encounter Summary ---
Author Author [facility] Organization [facility] Address Unknown Phone Unavailable Care Team Providers Care Engineer Booster And Exhauster Name Role Phone Self, Juan Miguel AMBROCIO PCP Encounter Details Care Team Description Date Type Department Wily Herrera, PHARMD Malignant neoplasm of upper-inner quadra nt of right breast in female, estrogen receptor negative (HCC) (Primary Dx) 12/12/2020 Orders Only Oncology: Cancer [facility] [address] [place] [address] Social History Date Tobacco Use [...] Date End Date Prescription Sig Dispensed Refills 12/12/2020 12/12/2020 [id number] Inject 0.6 mL 0.6 mL 3 (ZIEXTENZO) 6 mg/0.6 mL under the syringeIndications: skin once for Malignant neoplasm of 1 dose. upper-inner quadrant of Administer 24 right breast in female, hours after estrogen receptor completion of negative (HCC) chemotherapy. Inject full syringe (6 mg) under the skin. documented in this encounter Plan of Treatment [...]
--- OUTSIDE RECORDS SUMMARY | 2020-12-24 18:13 | XMS REPORT | Encounter Summary ---
Author Author [facility] Organization [facility] Address Unknown Phone Unavailable Care Team Providers Care Ostrich Farm Worker Name Role Phone Reynaldo, Juan Miguel AMBROCIO PCP Reason for Visit * Reason Onset Date Comments Navigation Assessment 12/01/2020 Encounter Details Care Team Description [place] [address] [place] [address] [phone] Navigation Assessment 12/01/2020 Telephone Oncology: [address] [place] [address] Social History Date Tobacco Use Types Packs/Day [...] Telephone Encounter - Joanie Nguyen RN - 12/01/2020 2:27 PM CDT Navigation Follow Up Assessment Document Patient Name: Divina Sanchez : 1970 Insurance: [id number] Direct referral: medical oncologist at OP location Appointment Info: Future Appointments Date Time Provider Department Center 12/06/2020 3:00 PM Gerhard Paige MD [id number] Exam 12/08/2020 10:00 AM MRI - IC ROOM 2 (3T) IC1MRI ICC Radiolog 02/23/2021 2:30 PM Gladys Rodriguez PA-C [id number] [facility] Exam 02/23/2021 2:30 PM BIS IC1 BIOIMPEDENCE SPECTROSCOPY [id number] Exam Diagnosis & Reason for Visit: Divina saw Dr. 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 Divina requests transferring her care to one a medical oncologist at our health system. All medical records are in [facility]. Divina states that her hysterectomy and oophorectomy scheduled on 12/02/20 is cance led and she will plan on having this surgery at [email or web address] Location of Films: IN HOUSE and PACS Location of Pathology: outside pathology slides are already requested. documented in this encounter Plan of Treatment [...]
--- OUTSIDE RECORDS SUMMARY | 2020-12-24 18:13 | XMS REPORT | Encounter Summary ---
Author Author [facility] Organization [facility] Address Unknown Phone Unavailable Care Team Providers Care Sheep Farm Manager Name Role Phone Reynaldo, Juan Miguel AMBROCIO PCP Reason for Visit * Reason Comments Cancer Treatment * Treatment (Routine) Referred By Contact Referred To Contact Status Reason Specialty Diagnoses / [place] [address] [place] [id number] [place] [address] [place] [address] Authorized Hematology & Diagnoses Oncology / Malignant neoplasm Hematology and of upper-inner Oncology quadrant of right breast in female, estrogen receptor negative (HCC) Encounter for antineoplastic chemotherapy P rocedures DOXORUBICIN + CYCLOPHOSPHAMIDE (DOSE-DENSE AC) palonosetron(+) (ALOXI) aprepitant emulsion (CINVANTI) pegfilgrastim-bmez (ZIEXTENZO) Encounter Details Care Team Description [place] [address] [place] [id number] [phone] 12/20/2020 Hospital Oncology: Cancer Ce nter, Encounter [place] [address] [address] Social History Date Tobacco Use Types [...] as of this encounter Progress Notes * Melodie Hernandez RN - 12/20/2020 10:00 AM CDT CHEMO NOTE Verified chemo consent signed and in chart. Verified initiate chemo order in O2 Blood return positive via: Port (Single) BSA and dose double checked (agree with orders as written) with: yes with Rober barrios RN Labs/applicable tests checked: CBC and Comprehensive Metabolic Panel (CMP) Chemo regime: C1D1 Adriamycin/Cytoxan Rate verified and armband double checkwith second RN: yes Patient education offered and stated understanding. Denies questions at this cristhian e. Patient presented to clinic for treatment. Patient's port accessed with positive blood return. Patient's labs okay to treat. Patient tolerated infusion well. Cristian vegas's port flushed with heparin and de-accessed per protocol. Patient discharg ed off unit via ambulation in good condition. documented in this encounter Miscellaneous Notes * Addendum Note - Neela Figueroa - 12/20/2020 10:00 AM CDT Encounter addended by: Neela Figueroa on: 12/22/2020 2:48 PM Actions taken: Charge Capture section accepted 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, estrogen receptor negative (HCC) - Primary documented in this encounter Administered Medications Action Date Dose Rate Site Medication Order MAR Action 12/20/2020 11:04 AM CDT 130 mg aprepitant emulsion (CINVANTI) 7.2 mg/mL Given injection 130 mg 130 mg, Intravenous, ONCE, 1 dose, On Sat12/20/20 at 1100, Give IV push over 2 minutes 12/20/2020 11:55 AM CDT 1,300 mg 630 mL/hr cyclophosphamide (CYTOXAN) 1,300 mg in Given - New sodium chloride 0.9% (NS) 315 mL IVPB Bag 1,300 mg (rounded from 1,344 mg = 600 mg/m2 2.24 m2 Treatment Plan Recorded BSA), Intravenous, 315 mL, Administer over 0. 5 Hours, ONCE, 1 dose, On Sat12/20/20 at 1130, NOTE: This is a HIGH ALERT Medication. 12/20/2020 11:04 AM CDT 12 mg dexAMETHasone (DECADRON) tablet 12 mg Given 12 mg, Oral, ONCE, 1 dose, On Sat12/20/20 at 1100 12/20/2020 11:45 AM CDT 134.4 mg DOXOrubicin (ADRIAMYCIN) injection 134.4 Given mg 134.4 mg (60 mg/m2 2.24 m2 Treatment Plan Recorded BSA), Intravenous, ONCE, 1 dose, On Sat12/20/20 at 1130, Give IV Push over 3-5 minutes. 12/20/2020 11:04 AM CDT 500 Units heparin lock flush PF syringe 500 Units Given 500 Units, Flush, ONCE, 1 dose, On Sat12/20/20 at 1200, NOTE: This is a HIGH ALERT Medication. 12/20/2020 11:04 AM CDT 0.25 mg palonosetron(+) (ALOXI) injection 0.25 Given mg 0.25 mg, Intravenous, ONCE, 1 dose, On Sat12/20/20 at 1100 documented in this encounter Orders First Ordered Date Nursing Count Last Ordered Date IMPLEMENT ALTEPLASE CENTRAL VENOUS 1 ACCESS DEVICE DECLOTTING PROTOCOL IMPLEMENT CHEMOTHERAPY EXTRAVASATION 1 0 12/20/2020 MANAGEMENT PROTOCOL IMPLEMENT GENERAL IV LINE FLUSH PROTOCOL 1 12/20/2020 IMPLEMENT MEDICATION REACTION 1 12/21/19 21 ANAPHYLAXIS, AND HYPERSENSITIVITY JENS C First Ordered Date Onc TX Plan Communication Count Last Ordered Date ONCBCN TREATMENT CONDITION #1 1 12/21/19 21 ONCBCN TREATMENT CONDITION #6 1 12/21/19 21 documented in this encounter Additional Health Concerns Assessment Noted Time A fall risk assessment has been completed for the pat ient 12/20/2020 10:18 AM CDT PHQ-2 Depression Total Score: 0 12/01/2020 10:33 AM CDT documented as of this encounter
--- OUTSIDE RECORDS SUMMARY | 2020-12-24 18:13 | XMS REPORT | Encounter Summary ---
Author Author [facility] Organization [facility] Address Unknown Phone Unavailable Care Team Providers Care Ornament Maker Hand Name Role Phone Self, Juan Miguel AMBROCIO PCP Reason for Visit * Reason Onset Date Comments Surgery 12/14/2020 Encounter Details Care Team Description Date [place] [address] [place] [address] Surgery 12/14/2020 Telephone General [facility]: [facility] [address] [place] [phone] Social History Date Tobacco Use Types Packs/Day [...] encounter Miscellaneous Notes * Telephone Encounter - Eimly Hannon RN - 12/14/2020 4:19 PM CDT Pt scheduled for Port Insert with Dr. Washburn on 12/16/20 at [facility]. Instructed use of anesthesia vs. local only would be determined the morning of s urgery. Instructions given, pt states understanding. documented in this encounter Plan of Treatment [...]
--- OUTSIDE RECORDS SUMMARY | 2020-12-24 18:13 | XMS REPORT | Clinical Summary ---
Author Author [facility] Organization [facility] Address Unknown Phone Unavailable Care Team Providers Care Aluminum Container Tester Name Role Phone Self, Juan Miguel AMBROCIO PCP Source Comments Some departments are not documenting in the electronic medical record. If you d o not see the information that you expected, contact Release of Information in [facility] [employer] Information Management department at [phone] for further assistan ce in locating additional records.[facility] Allergies No Known Active Allergies Medications End Date Status Medication Sig Dispensed Refills Start Date Active venlafaxine XR (EFFEXOR TAKE 1 0 XR) 150 mg capsule CAPSULE BY 1 MOUTH ONCE DAILY WITH FOOD FOR 90 DAYS Active venlafaxine XR (EFFEXOR TAKE 1 0 XR) 75 mg capsule CAPSULE BY 1 MOUTH ONCE DAILY WITH FOOD FOR 90 DAYS Active loratadine (CLARITIN) 10 Take 1 tablet 0 mg tablet by mouth twice daily. Active docosahexaenoic acid/epa Take 500 mg 0 (FISH OIL PO) by mouth daily. Active ferrous sulfate (FEOSOL) Take 325 mg 0 325 mg (65 mg iron) by mouth as tablet Needed. Take on an empty stomach at least 1 hour before or 2 hours after food. Active docusate sodium (STOOL Take by 0 SOFTENER PO) mouth as Needed. Active omeprazole DR (PRILOSEC) Take 20 mg by 0 20 mg capsule mouth at bedtime daily. Active dexAMETHasone (DECADRON) Take two 24 tablet 0 0 4 mg tabletIndications: tablets by 1 Malignant neoplasm of mouth daily. upper-inner quadrant of On Days 2-4 right breast in female, of each estrogen receptor cycle. negative (HCC) Active ondansetron (ZOFRAN) 8 mg Take one 30 tablet 2 tabletIndications: tablet by 1 Malignant neoplasm of mouth every 8 upper-inner quadrant of hours as right breast in female, needed estrogen receptor (nausea and negative (HCC) vomiting). Active prochlorperazine maleate Take one 30 tablet 2 0 (COMPAZINE) 10 mg tablet by 1 tabletIndications: mouth every 6 Malignant neoplasm of hours as upper-inner quadrant of needed for right breast in female, Nausea or estrogen receptor Vomiting. negative (HCC) Active lidocaine/prilocaine Apply a thin 30 g 3 11/27 (EMLA) 2.5/2.5 % topical film over 1 cream port one hour prior to treatment. Do not rub in. Cover with plastic wrap after application Active cyanocobalamin (VITAMIN Take 100 mcg 0 B-12) 100 mcg tablet by mouth daily. Active HYDROcodone/acetaminophen Take one 10 tablet 0 (NORCO) 5/325 mg tablet tablet by 1 mouth every 6 hours as needed for Pain Active senna/docusate Take two 90 tablet 1 (SENOKOT-S) 8.6/50 mg tablets by 1 tablet mouth twice daily. Active ondansetron (ZOFRAN ODT) Dissolve one 30 tablet 0 4 mg rapid dissolve tablet by 1 tablet mouth every 8 hours as needed for Nausea or Vomiting. Place on tongue to dissolve. Active varenicline (CHANTIX REJI) Take 0.5mg by 53 tablet 0 0.5 mg (11)- 1 mg (42) mouth daily 1 tablet for 3 days, then increase to 0.5mg by mouth twice daily for 4 days, then increase to 1mg by mouth twice daily. 12/15/2020 Discontinued (Removed from P TA Med List) cyanocobalamin (vitamin Take by 0 B-12) (VITAMIN B12 PO) mouth. 12/22/2020 Discontinued varenicline (CHANTIX Take 0.5mg by 53 tablet 0 STARTING MONTH BOX) 0.5 mouth daily 1 mg (11)- 1 mg (42) tablet for 3 days, then increase to 0.5mg by mouth twice daily for 4 days, then increase to 1mg by mouth twice daily. 12/12/2020 pegfilgrastim-bmez Inject 0.6 mL 0.6 mL 3 12/12 (ZIEXTENZO) 6 mg/0.6 mL under the 1 syringeIndications: skin once for Malignant neoplasm of 1 dose. upper-inner quadrant of Administer 24 right breast in female, hours after estrogen receptor completion of negative (HCC) chemotherapy. Inject full syringe (6 mg) under the skin. Active Problems Problem Noted Date Encounter for education 12/08/2020 Malignant neoplasm of upper-inner quadrant of right b reast in female, 11/28/2020 estrogen receptor negative Cancer Staging: Clinical stage from 10/28: Stage IB (cT1c, cN0, cM0, G3, ER-, OH-, HER2-) - Signed by Gladys Andersen PA-C on 12/01/2020 Overview: Formatting of this note might be differ ent from the original. 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 Sanchez is a female who presented to [facility] on 12/01/2020 at age 50 for evalua tion of right breast cancer. Ms. Sanchez had no complaints prior to her outside in September 2020. At that time a new right breast mass was seen. Diagn ostic mammogram and ultrasound 10/20/20 confirmed the presence of an ir regular 1 cm spiculated mass at 1:00 and biopsy was recommended. Right breas t sono-guided biopsy 10/25/20 (Element) revealed grade 3 invasive yesenia reyna carcinoma with ductal carcinoma in situ. BREAST IMAGING: Mammogram: -- Bilateral screening mammogram 10/04/20 (Lui Anderson) revealed heterogeneously dense breast tissue. A solitary small lobulated and possibly spiculated nodule was present in the right breast superiorly near the chest wall that measured 6 mm and w as seen best on MLO projection. No worrisome calcification. No obvious axi llary lymphadenopathy. -- Right diagnostic mammogram 10/20/20 ( Lui Anderson) revealed an irregular 6 mm mass at 1:00 adjacent to the pectora l muscle. Ultrasound: -- Right breast ultrasound 10/20/20 (Hua Anderson) revealed an irregular hypoechoic mass at 1:00, 10 cm FTN. The mass was immediately adjacent to the pectoral muscle. It measured 1 x 0. 8 x 0.7 cm. It had irregular margins and posterior shadowing. The mass was o riented perpendicular to the skin surface. -- Targeted right breast ultrasound 12/01 ([facility]) revealed irregular not parallel hypoechoic mass with spiculate d margins within the right breast at 12:30, 10 cm from the nipple measuring 1.1 x 0.9 x 0.9 cm. Adjacent echogenicity likely represented the tis belgica marker clip. This was consistent with the biopsy-proven malignancy. No m orphologically suspicious right axillary lymph nodes. 4 morphologically normal lymph nodes were documented. No suspicious parasternal/internal mamm oscar lymph nodes were seen. REPRODUCTIVE HEALTH: Age at first Menarche: Age at First Live : Age at Menopause: : Para: : PROCEDURE: pending PERTINENT PMH: FAMILY HISTORY: No paternal family his tory of breast or ovarian cancers. Mother is adopted and does not know her family history of cancers in biological family PHYSICAL EXAM on PRESENTATION: MEDICAL ONCOLOGY: Dr. Fabrizio Hammond REFERRED BY: Dr. Fabrizio Hammond Encounters Care Team Description Date Type Specialty Steven Anders MD Heme/Onc Care 12/24/2020 Telephone Oncology Steven Anders MD Heme/Onc Care 12/24/2020 Telephone Oncology Jodi Avila MD 12/22/2020 Orders Only Oncology Gerhard Paige MD Arrived 12/20/2020 Hospital Lab Encounter Gerhard Paige MD Malignant neoplasm of upper-inner quadra nt of right breast in female, estrogen receptor negative (HCC) (Primary Dx) 12/20/2020 Office Visit Oncology Gerhard Paige MD 12/20/2020 Hospital Oncology Encounter Gerhard Paige MD 12/20/2020 Orders Only Oncology 12/20/2020 Travel 12/19/2020 Travel Neftali Washburn DO INSERTION TUNNELED CENTRAL VENOUS ACCESS DEVICE WITH SUBCUTANEOUS PORT - AGE 5 YEARS AND OVER 12/16/2020 Surgery Tk Mccauley MD Groves, Donald N, JADA 12/16/2020 Anesthesia Event Neftali Washburn DO Malignant neoplasm of upper-inner quadra nt of right breast in female, estrogen receptor negative (HCC) 12/16/2020 Hospital Encounter Masoud Mayo Jean Claude 12/15/2020 Orders Only Oncology Gerhard Paige MD 12/14/2020 Hospital Cardiology Encounter Neftali Washburn, DO Surgery 12/14/2020 Telephone General Surgery Neftali Washburn, DO Malignant neoplasm of upper-inner quadra nt of right breast in female, estrogen receptor negative (HCC) (Primary Dx) 12/14/2020 Prep for [facility] General Surgery Gerhard Paige MD Care Coordination 12/14/2020 Telephone Oncology 12/14/2020 Travel Wily Herrera PHARMD Malignant neoplasm of upper-inner quadra nt of right breast in female, estrogen receptor negative (HCC) (Primary Dx) 12/12/2020 Orders Only Oncology Gerhard Paige MD 12/12/2020 Orders Only Oncology Gloria Hyde PRODUCTION MACHINIST-COOK BOAT Malignant neoplasm of upper-inner quadra nt of right breast in female, estrogen receptor negative (HCC) (Primary Dx); Encounter for education 12/08/2020 Office Visit Oncology Gerhard Paige MD 12/08/2020 Hospital Lab Encounter Jodi Avila MD 12/08/2020 Hospital Radiology Encounter 12/08/2020 Travel Gerhard Paige MD Malignant neoplasm of right breast in fe male, estrogen receptor negative, unspecified site of breast (HCC) (Primary Dx) 12/06/2020 Office Visit Oncology 12/06/2020 Travel Jodi Avila MD Seaton, Megan, RN At risk for lymphedema 12/01/2020 Nurse Only Oncology Jodi Avila MD Malignant neoplasm of upper-inner quadra nt of right breast in female, estrogen receptor negative (HCC) (Primary Dx) 12/01/2020 Office Visit Oncology Jodi Avila MD 12/01/2020 Hospital Radiology Encounter Jodi Avila MD Canceled (Office-Scheduling Error) 12/01/2020 Hospital Radiology Encounter Gerhard Paige MD Navigation Assessment 12/01/2020 Telephone Oncology 12/01/2020 Travel Jodi Avila MD Malignant neoplasm of unspecified site o f right female breast (HCC) 11/29/2020 Hospital Lab Encounter Jodi Avila MD Navigation Assessment 11/25/2020 Telephone Oncology Jodi Avila MD Malignant neoplasm of right breast in fe male, estrogen receptor negative, unspecified site of breast (HCC) (Primary Dx) 11/21/2020 Orders Only Oncology 11/21/2020 Travel 10/25/2020 Hospital Radiology Encounter 10/20/2020 Hospital Radiology Encounter 10/20/2020 Hospital Radiology Encounter 10/04/2020 Hospital Radiology Encounter from Last 3 Months Immunizations Name Administration Dates Next Due Surgical History Surgery Date Site/Laterality Comments KNEE SURGERY -201 Left multiple hip/kn ee surgeries 6 SECTION 04/29/2007 - 04/28/2008 HIP REPLACEMENT 04/29/2015 - left hip 04/28/2016 HERNIA REPAIR 04/29/2007 - 04/28/2008 Medical History Medical History Date Comments Arthritis Back pain defect Bleeding disorder (HCC) Vision decreased Hip dysplasia Breast cancer (HCC) 11/2020 right breast Family History Medical History Relation Name Comments Cancer-Prostate Paternal Uncle Relation Name Status Comments Paternal Uncle Social History Date Tobacco Use Types Packs/Day [...] or suspected to have Coronavirus / COVID-19? Obstetrics History Term Pre Abrt (TAB) (SAB) (Ect) Mult Lvng Comments Grav Para 5 5 Date GA Total Labor Labor/2nd/3rd Weight Sex Delivery Anes PTL Marya A1 A5 Name Clin Outcome Para Para Para Para Para Last Filed Vital Signs Reading Time Taken Comments Vital Sign 118/62 12/20/2020 10:17 AM CDT Blood Pressure 79 12/20/2020 10:17 AM CDT Pulse 36.5 C (97.7 F) 12/20/2020 10:17 AM CDT Temperature 14 12/20/2020 10:17 AM CDT Respiratory Rate 100% 12/20/2020 10:17 AM CDT Oxygen Saturation - - Inhaled Oxygen Concentration 104.2 kg (229 lb 12.8 oz) 12/20/2020 10:17 AM CDT Weight 174.6 cm (5' 8.75") 12/20/2020 10:17 AM CDT Height 34.18 12/20/2020 10:17 AM CDT Body Mass Index Plan of Treatment Health Maintenance Due Date Last Done Comments HIV SCREENING 1987 DTAP/TDAP VACCINES (1 - 1990 Tdap) HEPATITIS C SCREENING 1990 PHYSICAL (COMPREHENSIVE) 1990 EXAM CERVICAL CANCER SCREENING 1993 BREAST CANCER SCREENING 2012 INFLUENZA VACCINE 01/27/2021 COVID-19 VACCINE Completed 08/30/2020, 08/02/2020 Implants Device Identifier Shelf Expiration Date Model / Serial / L ot Implanted Type Area Manufactur er 12/27/2021 [id number] / N/A / [id number] Port Implantable Infusion Powerport Left: Chest C R BARD Clearvue 6fr Slim Suture - [employer] Implanted: Qty: 1 on 12/16/2020 by Sai Rosen MD at [facility] Procedures Comments Procedure Name Priority Date/Time Associated Diag nosis HC COMPREHENSIVE Routine 12/20/2020 Malignant rebecca plasm of METABOLIC PANEL 10:11 AM CDT upper-inner quadran t of right breast in female, estrogen receptor negative (HCC) HC CBC W/ AUTOMATED DIFF Routine 12/20/2020 Malig nant neoplasm of 10:11 AM CDT upper-inner quadrant of right breast in female, estrogen receptor negative (HCC) CHEST SINGLE VIEW Routine 12/16/2020 11:14 AM [...] YEARS AND estrogen receptor OVER negative (HCC) 2D + DOPPLER ECHO W/ Routine 12/14/2020 Malignant neoplasm of STRAIN NO CONTRAST 10:30 AM CDT right breast in fe male, estrogen receptor negative, unspecified site of breast (HCC) HC CBC W/ AUTOMATED DIFF 12/08/2020 10:54 AM CDT HC COMPREHENSIVE 12/08/2020 METABOLIC PANEL 10:54 AM CDT MRI BREAST BILAT WO/W Routine 12/08/2020 Malignan t neoplasm of CONTRAST 10:43 AM CDT upper-inner quadran t of right breast in female, estrogen receptor negative (HCC) US BREAST TARGET RT Routine 12/01/2020 Malignant neoplasm of 9:33 AM CDT right breast in female, estrogen receptor negative, unspecified site of breast (HCC) OH CONSLTJ&REPRT SLIDES 11/29/2020 PREPARED ELSEWHERE 8:39 AM CDT PATHOLOGY REPORTS FROM 11/29/2020 OUTSIDE SCAN 12:00 AM CDT US BREAST BIOPSY EXTERNAL Routine 10/25/2020 IMAGING 12:00 AM CDT US BREAST EXTERNAL Routine 10/20/2020 IMAGING 12:05 AM CDT MAMMO DIAG EXTERNAL Routine 10/20/2020 IMAGING 12:00 AM CDT MAMMO SCREEN EXTERNAL Routine 10/04/2020 IMAGING 12:00 AM CDT from Last 3 Months Results * CBC AND DIFF (12/20/2020 10:11 AM CDT) Only the most recent of 2 results within the time period is included. White Blood 7.0 4.5 - 11.0 K/UL [facility] Cells [facility] RBC 4.18 4.0 - 5.0 M/UL [facility] [place] Hemoglobin 12.2 12.0 - 15.0 GM/DL [facility] [place] Hematocrit 38.1 36 - 45 % [facility] [place] MCV 91.1 80 - 100 FL [facility] [place] MCH 29.2 26 - 34 PG [facility] [place] MCHC 32.1 32.0 - 36.0 G/DL [facility] [place] RDW 15.2 (H) 11 - 15 % [facility] [place] Platelet Count 259 150 - 400 K/UL [facility] [place] MPV 7.4 7 - 11 FL [facility] [place] Neutrophils 63 41 - 77 % [facility] Lymphocytes 27 24 - 44 % [facility] Monocytes 6 4 - 12 % [facility] [place] Eosinophils 3 0 - 5 % [facility] [place] Basophils 1 0 - 2 % [facility] [place] Absolute 4.50 1.8 - 7.0 K/UL [facility] Neutrophil [facility] Count Absolute Lymph 1.90 1.0 - 4.8 K/UL [facility] Count [facility] Absolute 0.40 0 - 0.80 K/UL [facility] Monocyte Count [place] Absolute 0.20 0 - 0.45 K/UL [facility] Eosinophil [place] Count Absolute 0.10 0 - 0.20 K/UL [facility] Basophil Count [place] Specimen Blood Performing Organization Address City/State/ZIP Code P lemuel Number [facility] [place] [address] [place] [address] * COMPREHENSIVE METABOLIC PANEL (12/20/2020 10:11 AM CDT) Only the most recent of 2 results within the time period is included. Sodium 138 137 - 147 MMOL/L [facility] [...] (L) >60 mL/min [facility] Comment: [place] The eGFR is not validated f or use in drug dosing adjustments. Continue to use estimated creatinine clearance per dosing reference text. Please contact the Clinical Pharmacist for questions. eGFR >60 >60 mL/min [facility] [place] Comment: The eGFR is not validated for use in drug dosing adjustments. Continue to use estimated creatinine clearance per dosing reference text. Please contact the Clinical Pharmacist for questions. Specimen Blood Performing Organization Address City/State/ZIP Code P lemuel Number [facility] [address] [place] [address] * CHEST SINGLE VIEW (12/16/2020 11:14 AM [...] City/State/ZIP Code P lemuel Number [facility] * 2D + DOPPLER ECHO (12/14/2020 10:30 [...] 34 OTHER OUTSIDE Index LAB Cardiology Siemens [id number] OTHER OUTSIDE Ultrasound LAB Machine Left Ventricle [...] Code P lemuel Number OTHER OUTSIDE LAB * MRI BREAST BILAT WO/W CONTRAST (12/08/2020 10:43 AM CDT) Specimen Impressions Performed At ASSESSMENT: BIRAD 6-Known biopsy proven malignancy [facility] RESULTS RECOMMENDATION: Follow-up with your physician. Narrative Performed At [facility] MRI BREAST BILAT W/O W [...] signed and approved by: Ronn Vega M.D. [id number] Procedure Note Interface, Radiant Results - 12/08/2020 11:15 AM CDT [id number] MRI BREAST BILAT W/O W CONTRAST: DECEMBER [...] signed and approved by: Ronn Vega M.D. [id number] IMPRESSION ASSESSMENT: BIRAD 6-Known biopsy proven malignancy RECOMMENDATION: Follow-up with your physician. Performing Organization Address City/State/ZIP Code P lemuel Number [facility] * US BREAST TARGET RT (12/01/2020 9:33 AM CDT) Specimen Impressions Performed At ASSESSMENT: BIRAD 6-Known biopsy proven malignancy [facility] RES[facility] RECOMMENDATION: Treatment plan. Narrative Performed At [id number] US BREAST TARGET RT: RIGHT BREAST - DECEMBER 01, 2020 - [facility] RES[facility] Standard views. Technologist: Mika Fox her Prior study comparison: October 20, 2020, diagnostic mammogram. History: 50-year old female presents fo r additional imaging prior to surgical consultation after ultrasou nd-guided biopsy of a screening detected mass within the righ t breast demonstrated malignancy. Outside post procedure mamm ogram demonstrates a ribbon-shaped tissue marker clip along the posterior superior margin of the mass. Targeted ultrasound of the right breast was performed by a trained renewable energy technician. There is irregular not parallel hypoech oic [...] signed and approved by: Shabnam Hill M.D. [id number] Procedure Note Interface, Radiant Results - 12/01/2020 9:45 AM CDT [id number] US BREAST TARGET RT: RIGHT BREAST - DECEMBER 01, 2020 - Standard views. Technologist: Melinda Nunez, Bilingual Inside Sales Representative Prior study comparison: October 20, 2020, diagnostic mammogram. History: 50-year old female presents for additional imaging prior to surgical consultation after ultrasound-guided biopsy of a screening detected mass within the right breast demonstrated malignancy. Outside post procedure mammogram demonstrates a ribbon-shaped tissue marker clip along the posterior superior margin of the mass. Targeted ultrasound of the right breast was performed by a trained renewable energy technician. There is irregular not parallel hypoechoic mass [...] signed and approved by: Shabnam Hill M.D. [id number] IMPRESSION ASSESSMENT: BIRAD 6-Known biopsy proven malignancy RECOMMENDATION: Treatment plan. Performing Organization Address City/State/ZIP Code P lemuel Number [facility] * OUTSIDE PATHOLOGY CONSULT (11/29/2020 8:39 AM CDT) PATHOLOGY [facility] [email or web address] Department of Pathology and Laboratory Medicine [address] [place] [address] Surgical Pathology Office: [phone] PATHOLOGY CONSULTATION NAME: SHANIKA SANCHEZ SURG PATH #: [id number] MR #: [id number] ALT ID #: LOCATION: [facility] DATE OF PROCEDURE: 11/29/2020 AGE: 50 SEX: F DATE RECEIVED: 11/29/2020 : 1970 TIME RECEIVED: 08:39 PHYSICIAN: JODI AVILA DATE OF REPORT: 11/29/2020 COPY TO: DATE OF PRINTIN11/29/2020 OUTSIDE INSTITUTION: [facility] [address] [place] [address] ############################## ############################## ############ Final Diagnosis: A. Outside case "[id number]" (Date Collected: 10/25/2020): 1. Right breast, 1:00 [...] involves 2 of 4 cores. Histologic Grade ([place] Histologic Score): III/III Tubule Formation: 3 Nuclear [...] present and stain as expected. Progesterone Receptor (OH): <1% Negative Stain Intensity: Weak Note: Internal [...] Material Received: A: Outside Slides, x6 slides, [id number], [facility], [address], [place] [address] History: 50-year-old female. Gross Description: A. Received are six (6) total outside slides and a report labeled "[id number]". mr/11/29/2020 If immunohistochemical stains and/or in situ hybridization are cited in this report, the performance characteristics were determined by the Department of Pathology and Laboratory Medicine of the [facility] ([employer]) in compliance with CLIA'88 [...] of Pathology and Laboratory Medicine of the [facility]. It has not been cleared or approved by the FDA. The FDA has determined that such clearance or approval is not necessary. Specimen Performing Organization Address City/State/ZIP Code P lemuel Number [facility] [address] [place] [address] * PATHOLOGY REPORTS FROM OUTSIDE SCAN (11/29/2020 12:00 AM CDT) Narrative Performed At This result has an attachment that is n ot available. Ordered by an unspecified provider. * US BREAST BIOPSY EXTERNAL IMAGING (10/25/2020 12:00 AM CDT) Specimen Narrative Performed At This order has been auto finalized and does not contain a result. * US BREAST EXTERNAL IMAGING (10/20/2020 12:05 AM CDT) Specimen Narrative Performed At This order has been auto finalized and does not contain a result. * MAMMO DIAG EXTERNAL IMAGING (10/20/2020 12:00 AM CDT) Specimen Narrative Performed At This order has been auto finalized and does not contain a result. * MAMMO SCREEN EXTERNAL IMAGING (10/04/2020 12:00 AM CDT) Specimen Narrative Performed At This order has been auto finalized and does not contain a result. from Last 3 Months Insurance Type Payer Benefit Subscriber ID Effective Phone Address Plan / Dates Group PPO BC[facility] [id number] 2020- [facility] Present BLUE [phone] Advance Directives Patient Inspector Technician Explanation Type Date Recorded Advance Directive/DPOA
--- OUTSIDE RECORDS SUMMARY | 2020-12-24 18:13 | XMS REPORT | Encounter Summary ---
Author Author [facility] Organization [facility] Address Unknown Phone Unavailable Care Team Providers Care Banquet Manager Name Role Phone Self, Juan Miguel AMBROCIO PCP Encounter Details Care Team Description Date Type Department 12/19/2020 Travel Social History Date Tobacco Use Types [...]
--- OUTSIDE RECORDS SUMMARY | 2020-12-24 18:13 | XMS REPORT | Encounter Summary ---
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 [place] [address] Social History Date Tobacco Use [...] 12/20/2020 10:17 AM CDT Body Mass Index documented in [...] Progress Notes * Gerhard Paige MD - 12/20/2020 10:30 AM CDT Name: Divina Sanchez : 1970 AGE: 50 y.o. DATE OF SERVICE: 12/20/2020 Subjective: Reason for Visit: Cancer Follow up Divina Sanchez is a 50 y.o. female. Cancer Staging Malignant neoplasm of upper-inner quadrant of right breast in female, estrogen r eceptor negative (HCC) Staging form: Breast, AJCC 8th Edition - Clinical stage from 11/24/2020: Stage IB (cT1c, cN0, cM0, G3, ER-, TN-, HER2-) - Signed by Gladys Rodriguez PA-C on 12/01/2020 History of Present Illness Right Breast Cancer: 1. Screening mammogram October 04, 2020 which revealed heterogeneously dense breast tissue. A solitary small lobulated and possibly spiculated nodule was present in the right superior breast near the chest wall measuring 6 mm. No worrisome c alcifications and no obvious axillary adenopathy. 2. Right diagnostic mammogram 10/20/2020 revealed an irregular 6 mm mass at the 1 o'clock position adjacent to the pectoralis muscle. Right breast ultrasound r evealed than the right nuclear hypoechoic mass at the 1 o'clock position, 10 cm from the nipple. The mass was immediately adjacent to the rectal muscle. It me asured 1 x 0.8 x 0.7. It had irregular margins and posterior shadowing. 3. Ultrasound-guided biopsy 10/25/2020 revealed grade 3 invasive ductal carcinom a with DCIS. The breast prognostic profile was ER 0, TN 0, HER-2 0. 4. Right breast ultrasound at [facility] 12/01/2020 revealed an irregular not parallel hy poechoic mass with spiculated margins within the right breast at the 12:30 posit ion, 10 cm from nipple measuring 1.1 x 0.9 x 0.9. Adjacent echogenicity likely representing the tissue marker. No morphologically suspicious right axillary no eusebio. 5. 12/08/20 Breast MRI: Known breast mass in right breast 1.3cm with NME entire area of 2.1cm. Left breast benign. 6. Neoadjuvant chemo with DD AC T start 12/20/20 Planning BRENNAN/BSO on 12/02/2020 for abnormal uterine [...] : no Genetic Referral: Consult placed 12/06/20 Interval History Divina presents for follow-up of her breast cancer to initiate chemotherapy. Review of Systems Constitutional: Negative for activity [...] not bruise/bleed easily. Psychiatric/Behavioral: Negative. Objective: cyanocobalamin (VITAMIN B-12) 100 mcg tablet Take 100 mcg by mouth daily. dexAMETHasone (DECADRON) 4 mg tablet Take two tablets by mouth daily. On Day s 2-4 of each cycle. docosahexaenoic acid/epa (FISH OIL PO) Take 500 mg by mouth daily. docusate sodium (STOOL SOFTENER PO) Take by mouth as Needed. ferrous sulfate (FEOSOL) 325 mg (65 mg iron) tablet Take 325 mg by mouth as Needed. Take on an empty stomach at least 1 hour before or 2 hours after food. HYDROcodone/acetaminophen (NORCO) 5/325 mg tablet Take one tablet by mouth e very 6 hours as needed for Pain lidocaine/prilocaine (EMLA) 2.5/2.5 % topical cream Apply a thin film over p ort one hour prior to treatment. Do not rub in. Cover with plastic wrap after ap plication loratadine (CLARITIN) 10 mg tablet Take 1 tablet by mouth twice daily. omeprazole DR (PRILOSEC) 20 mg capsule Take 20 mg by mouth at bedtime daily. ondansetron (ZOFRAN ODT) 4 mg rapid dissolve tablet Dissolve one tablet by m outh every 8 hours as needed for Nausea or Vomiting. Place on tongue to dissolve . ondansetron (ZOFRAN) 8 mg tablet Take one tablet by mouth every 8 hours as n eeded (nausea and vomiting). prochlorperazine maleate (COMPAZINE) 10 mg tablet Take one tablet by mouth e very 6 hours as needed for Nausea or Vomiting. senna/docusate (SENOKOT-S) 8.6/50 mg tablet Take two tablets by mouth twice daily. varenicline (CHANTIX STARTING MONTH BOX) 0.5 mg [...] DAILY WITH FOOD FOR 90 DAYS Vitals: 12/20/20 1017 BP: 118/62 BP Source: Arm, Left Upper Patient Position: Sitting Pulse: 79 Resp: 14 Temp: 36.5 C (97.7 F) TempSrc: Oral SpO2: 100% Weight: 104.2 kg (229 lb 12.8 oz) Height: 174.6 cm (68.75") PainSc: Zero Body mass index is 34.18 kg/m. Pain Score: Zero Fatigue Scale: 6 Pain Addressed: N/A Patient Evaluated for a [...] rhythm. Heart sounds: Normal heart sounds. No murmur heard. No gallop. Pulmonary: Effort: Pulmonary effort is [...] and Plan: T1CN0 triple negative breast cancer. We again discussed chemotherapy and side e ffects. After discussion she was willing to proceed. She will see my nurse pra ctitioner in 1 week for toxicity check and I will see her in 2 weeks for cycle # 2. documented in this encounter Plan of Treatment [...]
--- OUTSIDE RECORDS SUMMARY | 2020-12-24 18:13 | XMS REPORT | Encounter Summary ---
Author Author [facility] Organization [facility] Address Unknown Phone Unavailable Care Team Providers Care Director Of Nurses Registry Name Role Phone Self, Juan Miguel AMBROCIO PCP Reason for Referral * Consult, Test & Treat Referred By Contact Referred To Contact Status Reason Specialty Diagnoses / Procedures [place] [address] [place] [id number] [address], RD [address] [facility] [address] [place] [address] Authorized Specialty Services Office Lead, Diagnoses Required Registered / Malignant neoplasm Oncology of upper-inner quadrant of right breast in female, estrogen receptor negative (HCC) Comments Patient request, pre-chemo Electronically signed by Gloria KAYE at Reason for Visit * Reason Comments Follow Up Encounter Details Care Team Description Date Type Department Gloria Hyde APRN-NP 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 [address] Social History Date Tobacco Use [...] Signs Reading Time Taken Comments Vital Sign 121/60 12/08/2020 1:59 PM CDT Blood Pressure 88 12/08/2020 1:59 PM CDT Pulse 37 C (98.6 F) 12/08/2020 1:59 PM CDT Temperature 18 12/08/2020 1:59 PM CDT Respiratory Rate 100% 12/08/2020 1:59 PM CDT Oxygen Saturation - - Inhaled Oxygen Concentration 103.7 kg (228 lb 9.6 oz) 12/08/2020 1:59 PM CDT Weight 174.6 cm (5' 8.75") 12/08/2020 1:59 PM CDT Height 34 12/08/2020 1:59 PM CDT Body Mass Index documented in [...] Date End Date Prescription Sig Dispensed Refills 12/08/2020 lidocaine/prilocaine Apply a thin 30 g 3 (EMLA) 2.5/2.5 % topical film over cream port one hour prior to treatment. Do not rub in. Cover with plastic wrap after application 12/08/2020 prochlorperazine maleate Take one 30 tablet 2 (COMPAZINE) 10 mg tablet by tabletIndications: mouth every 6 Malignant neoplasm of hours as upper-inner quadrant of needed for right breast in female, Nausea or estrogen receptor Vomiting. negative (HCC) 12/08/2020 ondansetron (ZOFRAN) 8 mg Take one 30 tablet 2 tabletIndications: tablet by Malignant neoplasm of mouth every 8 upper-inner quadrant of hours as right breast in female, needed estrogen receptor (nausea and negative (HCC) vomiting). 12/08/2020 dexAMETHasone (DECADRON) Take two 24 tablet 0 4 mg tabletIndications: tablets by Malignant neoplasm of mouth daily. upper-inner quadrant of On Days 2-4 right breast in female, of each estrogen receptor cycle. negative (HCC) documented in this encounter Progress Notes * Gloria Hyde APRN-ROGER - 12/08/2020 2:00 PM CDT Name: Divina Sanchez : 1970 AGE: 50 y.o. DATE OF SERVICE: 12/08/2020 Subjective: Reason for Visit: Follow Up Divina Sanchez is a 50 y.o. female. 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 Paige'jon who had a screening mammogram in September 2020 [facility] revealed heterogeneously dense breast tissue. A solitary small lobulated and possibly spiculated nodule was present in the right superior breast near the est wall measuring 6 mm. No worrisome calcifications and no obvious axillary ad enopathy. Right diagnostic mammogram 10/20/2020 revealed an irregular [...] but was postponed due to cancer diagnosis. Interval Events: Divina presents to clinic for education about her treatment for her newly diagnos ed breast cancer. She is with her . Medical History: Diagnosis Date Arthritis Back pain defect Bleeding disorder (HCC) Breast cancer (HCC) Hip dysplasia Vision decreased Surgical History: Procedure Laterality Date SECTION HERNIA REPAIR HIP REPLACEMENT KNEE SURGERY Review of Systems Objective: cyanocobalamin (vitamin B-12) (VITAMIN B12 PO) Take by mouth. dexAMETHasone (DECADRON) 4 mg tablet Take two [...] mg by mouth daily before ivanna kfast. ondansetron (ZOFRAN) 8 mg tablet Take one [...] DAILY WITH FOOD FOR 90 DAYS Vitals: 12/08/20 1359 BP: 121/60 BP Source: Arm, Right Upper Patient Position: Sitting Pulse: 88 Resp: 18 Temp: 37 C (98.6 F) TempSrc: Oral SpO2: 100% Weight: 103.7 kg (228 lb 9.6 oz) Height: 174.6 cm (68.75") PainSc: Zero Body mass index is 34 kg/m. Pain Score: Zero Pain Addressed: N/A Patient Evaluated for a Clinical Trial: No treatment clinical trial available fo r this patient. Eastern Cooperative Oncology Group performance status is 0, Fully active, able t o carry on all pre-disease performance without restriction.. Physical Exam CBC w diff CBC with Diff Latest Ref Rng & Units 12/08/2020 WBC 4.5 - 11.0 K/UL 7.7 RBC 4.0 - 5.0 M/UL 3.87(L) HGB 12.0 - 15.0 GM/DL 11.8(L) HCT 36 - 45 % 35.8(L) MCV 80 - 100 FL 92.5 MCH 26 - 34 PG 30.5 MCHC 32.0 - 36.0 G/DL 33.0 RDW 11 - 15 % 15.0 PLT 150 - 400 K/UL 238 MPV 7 - 11 FL 8.3 NEUT 41 - 77 % 65 ANC 1.8 - 7.0 K/UL 5.11 LYMA 24 - 44 % 26 ALYM 1.0 - 4.8 K/UL 2.00 KATYA 4 - 12 % 6 AMONO 0 - 0.80 K/UL 0.43 EOSA 0 - 5 % 2 AEOS 0 - 0.45 K/UL 0.16 BASA 0 - 2 % 1 ABAS 0 - 0.20 K/UL 0.05 Comprehensive Metabolic Profile No flowsheet data found. Assessment and Plan: Right breast invasive ductal carcinoma, ER/AL/HER2 negative diagnosed on 10/25/20 . Plan neoadjuvant AC followed by taxol to start on 12/20/20. -- Will see if we can get pegfilgrastim locally though we might not be able to a rrange this. The patient is aware. Echo: Scheduled for 12/14/20. Port: Has been referred to Dr. Gibson but has not yet been contacted to candi . BALAJI Chemotherapy Education IV Chemotherapy: The following is a summary of the patient's IV Chemotherapy Edu cation. Doxorubicin and cyclophosphamide. A thorough pre-assessment and teaching session explaining the mechanism of actio n, possible side effects, precautions and instructions regarding doxorubicin and cyclophosphamide for curative intent was conducted. The patient will return on 12/20/20 to initiate treatment. The cycle will repeat every 14 days for a total o f 4 cycles. . Plan of administration was reviewed. Both written and verbal information were given to the patient. The planned course of treatment, anticipated benefits, material risks and potent ial side effects that may occur with this course of treatment were explained to the patient. Side effects and their management were discussed in detail and inc lude, but are not limited to: Neutropenia, anemia, thrombocytopenia, alopecia, n ausea, vomiting, allergic reaction, mucositis, constipation, diarrhea, decreased renal function, risk of secondary cancer, skin rash, nail changes, changes in t he function of the heart. We discussed bone pain and injection site pain were di scussed. Reproductive concerns were not discussed with the patient Infertility risks were not applicable and therefore not discussed Appropriate handling of body secretions and waste at home were reviewed as appli cable. Prescriptions for supportive medications including zofran, compazine, dexamethas one and EMLA cream were e-scripted to their pharmacy and discussed in detail how to take. Drug to drug interactions were reviewed as applicable. The patient has received contact information for the clinic and was instructed o n when and who to call. The patient verbalized understanding, was given the opportunity to ask questions , and the consent form was signed. Follow up appointment with physician on 12/20/20 with labs at that time. This was a 75 minute face to face encounter with 75 minutes spent in counseling and coordination of care. Iron deficiency anemia: Hemoglobin 11.8 g/dl today. Remains on iron prn. She amparo es it more if she is having increased vaginal bleeding and stops when bleeding n ot so bad. I have reviewed the distress thermometer and needs assessment, including physica l, psychological, social, spiritual and behavioral needs. The patient completed the assessment during this visit to identify psychosocial needs that may interf ere with the patient's plan of care. I have made the following referrals based on this assessment and discussion with the patient: Genetic Counseling and Melva anderson Counselor T documented in this encounter Plan of Treatment Order Schedule Name Type Priority Associated Diag noses Ordered: 12/08/2020 AMB REFERRAL TO [facility] Outpatient Routine Yanni hawthorne neoplasm of Referral upper-inner quadrant of right breast in female, estrogen receptor negative (HCC) documented as of this encounter Visit Diagnoses Diagnosis Malignant neoplasm of upper-inner quadr ant of right breast in female, estrogen receptor negative (HCC) - Primary Encounter for education Counseling NOS documented in this encounter Orders First Ordered Date General Supply Count Last Ordered Date CRANIAL PROSTHESIS 1 12/08/2020 documented in this encounter Additional Health Concerns Assessment Noted Time A fall risk assessment has been completed for the pat ient 12/06/2020 2:50 PM CDT PHQ-2 Depression Total Score: 0 12/01/2020 10:33 AM CDT documented as of this encounter
--- OUTSIDE RECORDS SUMMARY | 2020-12-24 18:13 | XMS REPORT | Encounter Summary ---
Author Author [facility] Organization [facility] Address Unknown Phone Unavailable Care Team Providers Care Sample Sewer Name Role Phone Self, Juan Miguel AMBROCIO PCP Encounter Details Care Team Description Date Type Department Masoud Mayo RPH 12/15/2020 Orders Only [facility] [address] [place] [address] Social History Date Tobacco Use Types Packs/Day [...] has been completed for the pat ient 12/15/2020 10:13 AM CDT PHQ-2 Depression Total Score: 0 12/01/2020 10:33 AM CDT documented as of this encounter
--- OUTSIDE RECORDS SUMMARY | 2020-12-24 18:13 | XMS REPORT | Encounter Summary ---
Author Author [facility] Organization [facility] Address Unknown Phone Unavailable Care Team Providers Care Edge Grinder Machine Name Role Phone Juan Miguel Jacobs MD PCP Reason for Visit * Reason Onset Date Comments Heme/Onc Care 12/24/2020 Encounter Details Care Team Description Date [place] [address] [place] [address] [phone] Heme/Onc Care 12/24/2020 Telephone Oncology: Cancer Cyndee ruiz [place] [address] [place] [address] Social History Date Tobacco Use [...] Encounter - Steven Anders MD - 12/24/2020 2:19 PM CDT Called with complaints of increased perimenopausal vaginal bleeding. It started earlier this week and is gotten worse. It is to the point that she is soaking through tampons and 5 minutes and having to use an adult diaper when she is out. She is feeling generally rundown and tired and lightheaded but is drinking ple nty of water. Cycle one of Adriamycin Cytoxan was December 20, 2020. Usually we do not see that degree of thrombocytopenia to induce out bleeding and she starte d with a hemoglobin of 12.2. She asked about taking iron which would certainly be fine but I told her it would probably be more helpful in the long-term to con tact her sales office administrator as we typically do not see that just from this chemotherap y regimen and if it persist we could get her in the clinic early in the week to check her counts but if anything happened more acutely from a bleeding standpoin t her increased weakness she would need to go to the local ER to get evaluated a nd have her counts checked. Ideally we can avoid that with the current pandemic . She verbalized understanding the instructions. documented in this encounter Plan of Treatment [...]
--- OUTSIDE RECORDS SUMMARY | 2020-12-24 18:13 | XMS REPORT | Encounter Summary ---
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 [place] [address] Social History Date Tobacco Use [...] (HCC) - Primary documented in this encounter Orders First Ordered Date Nursing Count Last Ordered Date COVID-19 TESTING NOT REQUIRED 1 12/15/19 21 First Ordered Date Case Request Count Last Ordered Date CASE REQUEST 1 12/14/2020 documented in this encounter Additional Health Concerns Assessment Noted Time A fall risk assessment has been completed for the pat ient 12/06/2020 2:50 PM CDT PHQ-2 Depression Total Score: 0 12/01/2020 10:33 AM CDT documented as of this encounter
[2020-12-24 19:29] LABS: BASOPHILS # (AUTO) 0.1 10^3/uL (0.0-0.1); BASOPHILS % (AUTO) 1 % (0-10); EOSINOPHILS # (AUTO) 0.1 10^3/uL (0.0-0.3); EOSINOPHILS % (AUTO) 1 % (0-10); HEMATOCRIT 32 % (35-52); HEMOGLOBIN 10.3 g/dL (11.5-16.0); LYMPHOCYTES # (AUTO) 2.1 10^3/uL (1.0-4.0); LYMPHOCYTES % (AUTO) 12 % (12-44); MEAN CORPUSCULAR HEMOGLOBIN 31 pg (25-34); MEAN CORPUSCULAR HGB CONC 32 g/dL (32-36); MEAN CORPUSCULAR VOLUME 95 fL (80-99); MEAN PLATELET VOLUME 9.4 fL (9.0-12.2); MONOCYTES # (AUTO) 0.1 10^3/uL (0.0-1.0); MONOCYTES % (AUTO) 1 % (0-12); NEUTROPHILS # (AUTO) 10.9 10^3/uL (1.8-7.8); NEUTROPHILS % (AUTO) 65 % (42-75); PLATELET COUNT 248 10^3/uL (130-400); WHITE BLOOD COUNT 16.8 10^3/uL (4.3-11.0)
[2020-12-24 19:45] LABS: ALBUMIN 3.6 GM/DL (3.2-4.5); CHLORIDE 105 MMOL/L (98-107); POTASSIUM 3.8 MMOL/L (3.6-5.0); SODIUM 140 MMOL/L (135-145)
[2020-12-24 19:46] LABS: CALCIUM 9.2 MG/DL (8.5-10.1)
[2020-12-24 19:47] LABS: GLUCOSE 93 MG/DL (70-105)
[2020-12-24 19:48] LABS: TOTAL PROTEIN 5.6 GM/DL (6.4-8.2)
[2020-12-24 19:49] LABS: BILIRUBIN,TOTAL < 0.1 MG/DL (0.1-1.0); CARBON DIOXIDE 26 MMOL/L (21-32)
[2020-12-24 19:51] LABS: ALKALINE PHOSPHATASE 81 U/L (40-136); CREATININE SERUM 0.84 MG/DL (0.60-1.30); GFR ESTIMATED 72
[2020-12-24 19:52] LABS: BUN/CREATININE RATIO 17
[2020-12-24 19:54] LABS: ALANINE AMINOTRANSFERASE 17 U/L (0-55); BAND NEUTROPHILS 3 %; LYMPHOCYTES % (MANUAL) 13 %; MONOCYTES % (MANUAL) 1 %; NEUTROPHILS % (MANUAL) 83 %; RBC MORPH NORMAL
[2020-12-24] MEDS ORDERED: D5 NS 1000 ML IV SOLUTION 1,000 ML IV ONE (20:30)
--- NOTE | 2020-12-24 20:41 | ED GU-Female ---
General Chief Complaint: Female Reproductive Stated Complaint: VAGINAL BLEEDING,DIZZINESS, Nursing Triage Note: Pt to [facility] with c/o vaginal bleeding since Saturday evening. Pt reports starting chemo Saturday with her oncologist in . Reports cramping off and on as well. Pt is taking chemo for 1 B triple negative breast cancer. Originally, pt started bleeding in June with the diagnosis of cancer on October 28. History of Present Illness Date Seen by Provider: Dec 24, 2020 Time Seen by Provider: 19:20 Initial Comments 50-year-old female presents for menorrhagia. She has been having symptoms for the last 6 months, she was scheduled to have a hysterectomy and was diagnosed with right breast cancer. She has been having intermittent vaginal bleeding weekly since then. Her oncologist wanted her to start chemo before surgery. She reports going through overnight pads and heavy tampons hourly. She had some noted weakness and was concerned. Her hemoglobin is 10.2. She did have chemo on 12/21/2020. She was having cramping and took Naprosyn prior to arrival. Timing/Duration: getting worse Severity/Quality: moderate Associated Symptoms: denies symptoms Allergies and Home Medications Allergies Coded Allergies: No Known Drug Allergies (Unverified , 11/25/20) Home Medications Cyanocobalamin (Vitamin B-12) 2,500 Mcg Tab.chew, 2,500 MCG PO DAILY, (Reported) Ferrous Sulfate Unknown Strength Tablet, Unknown Dose PO DAILY, (Reported) Loratadine 10 Mg Tablet, 10 MG PO DAILY, (Reported) Naproxen Sodium 220 Mg Tablet, 440 MG PO BID, (Reported) Daisy-3/Dha/Epa/Fish Oil 1 Each Capsule, 1 EACH PO DAILY, (Reported) Omeprazole 20 Mg Tablet.dr, 20 MG PO HS, (Reported) Sennosides/Docusate Sodium 1 Each Tablet, 1 EACH PO BID, (Reported) Venlafaxine HCl 50 Mg Tablet, 225 MG PO DAILY, (Reported) Patient Home Medication List Home Medication List Reviewed: Yes Review of Systems Review of Systems Constitutional: no symptoms reported, see HPI Genitourinary: see HPI, pain, other (Heavy menstrual cycle) : No All Other Systemes Reviewed Negative Unless Noted: Yes Past Bfxkyyw-Odkasc-Tugeum Hx Seasonal Allergies Seasonal Allergies: Yes Past Medical History Surgeries: No (HERNIA, TOTAL LEFT HIP 2015) Abdominal, Section, Joint Replacement, Orthopedic Respiratory: No Cardiac: No Neurological: No Genitourinary: Yes (STRESS INCONTINENCE ) Gastrointestinal: Yes Gastroesophageal Reflux Musculoskeletal: No Endocrine: No HEENT: No Cancer: Yes Breast Psychosocial: Yes Depression Integumentary: No Blood Disorders: Yes (ANEMIA ) Adverse Reaction/Blood Tranf: No (HAS HAD PREVIOUS TRANSFUSIONS WITHOUT COMPLICATION) Family Medical History Reviewed Nursing Family Hx Physical Exam Vital Signs Vital Signs - First Documented 12/24/20 19:03 Temp 36.8 Pulse 114 Resp 18 B/P (MAP) 139/84 (102) Pulse Ox 98 O2 Delivery Room Air Capillary Refill : Less Than 3 Seconds Height, Weight, BMI Height: '" Weight: lbs. oz. kg; 34.00 BMI Method: General Appearance: WD/WN, no apparent distress Cardiovascular: normal peripheral pulses, regular rate, rhythm Respiratory: chest non-tender, lungs clear, normal breath sounds Gastrointestinal: normal bowel sounds, non tender, soft Back: normal inspection, no CVA tenderness, no vertebral tenderness Neurologic/Psychiatric: no motor/sensory deficits, alert, normal mood/affect, oriented x 3 Skin: normal color, warm/dry Progress/Results/Core Measures Suspected Sepsis SIRS Temperature: Pulse: 114 Respiratory Rate: 18 Laboratory Tests 12/24/20 19:25: White Blood Count 16.8H Blood Pressure 139 /84 Mean: 102 Laboratory Tests 12/24/20 19:25: Creatinine 0.84, Platelet Count 248, Total Bilirubin < 0.1L Results/Orders Lab Results Laboratory Tests Test 12/24/20 19:25 Range/Units White Blood Count 16.8 H 4.3-11.0 10^3/uL Red Blood Count 3.36 L 3.80-5.11 10^6/uL Hemoglobin 10.3 L 11.5-16.0 g/dL Hematocrit 32 L 35-52 % Mean Corpuscular Volume 95 80-99 fL Mean Corpuscular Hemoglobin 31 25-34 pg Mean Corpuscular Hemoglobin Concent 32 32-36 g/dL Red Cell Distribution Width 13.8 10.0-14.5 % Platelet Count 248 130-400 10^3/uL Mean Platelet Volume 9.4 9.0-12.2 fL Immature Granulocyte % (Auto) 21 % Neutrophils (%) (Auto) 65 42-75 % Lymphocytes (%) (Auto) 12 12-44 % Monocytes (%) (Auto) 1 0-12 % Eosinophils (%) (Auto) 1 0-10 % Basophils (%) (Auto) 1 0-10 % Neutrophils # (Auto) 10.9 H 1.8-7.8 10^3/uL Lymphocytes # (Auto) 2.1 1.0-4.0 10^3/uL Monocytes # (Auto) 0.1 0.0-1.0 10^3/uL Eosinophils # (Auto) 0.1 0.0-0.3 10^3/uL Basophils # (Auto) 0.1 0.0-0.1 10^3/uL Immature Granulocyte # (Auto) 3.5 H 0.0-0.1 10^3/uL Neutrophils % (Manual) 83 % Lymphocytes % (Manual) 13 % Monocytes % (Manual) 1 % Band Neutrophils 3 % Blood Morphology Comment NORMAL Sodium Level 140 135-145 MMOL/L Potassium Level 3.8 3.6-5.0 MMOL/L Chloride Level 105 98-107 MMOL/L Carbon Dioxide Level 26 21-32 MMOL/L Anion Gap 9 5-14 MMOL/L Blood Urea Nitrogen 14 7-18 MG/DL Creatinine 0.84 0.60-1.30 MG/DL Estimat Glomerular Filtration Rate 72 BUN/Creatinine Ratio 17 Glucose Level 93 70-105 MG/DL Calcium Level 9.2 8.5-10.1 MG/DL Corrected Calcium 9.5 8.5-10.1 MG/DL Total Bilirubin < 0.1 L 0.1-1.0 MG/DL Aspartate Amino Transf (AST/SGOT) 13 5-34 U/L Alanine Aminotransferase (ALT/SGPT) 17 0-55 U/L Alkaline Phosphatase 81 40-136 U/L Total Protein 5.6 L 6.4-8.2 GM/DL Albumin 3.6 3.2-4.5 GM/DL My Orders Orders - KAMRYN LAINEZ Ed Iv/Invasive Line Start (12/24/20 20:19) D5 Ns 1000 Ml Iv Solution (Dextrose 5%/0 (12/24/20 20:30) Acetaminophen Tablet/Caplet (Tylenol T (12/24/20 21:14) Medications Given in ED Current Medications Medications Dose Ordered Sig/Garret Route Start Time Stop Time Status Last Admin Dose Admin Dextrose/Sodium Chloride 1,000 ml @ 0 mls/hr Q0M ONCE IV 12/24/20 20:30 12/24/20 20:31 DC 12/24/20 20:26 999 MLS/HR Vital Signs/I&O 12/24/20 12/24/20 19:03 21:57 Temp 36.8 36.8 Pulse 114 89 Resp 18 18 B/P (MAP) 139/84 (102) 113/60 (102) Pulse Ox 98 98 O2 Delivery Room Air Capillary Refill : Less Than 3 Seconds Blood Pressure Mean: 102 Progress Note : Time: 19:20 Progress Note Patient seen and evaluated, will give D5 normal saline 1 L per IV. [address] Ocampo, did not recommend any additional medications at this time. Tylenol 650 mg for cramps. 2099 patient taking ice chips and water. Fluids infusing, HR 80s, B/P 120s/60s. Less cramping. Patient urinated and had significantly less vaginal bleeding. Discharge instructions and return precautions reviewed. Departure Impression Primary Impression: Dysfunctional uterine bleeding Additional Impression: Breast cancer Qualified Codes: C50.911 - Malignant neoplasm of unspecified site of right female breast; Z17.1 - Estrogen receptor negative status [ER-] Disposition: HOME, SELF-CARE Condition: Improved Departure-Patient Inst. Decision time for Depature: 21:30 Referrals: SG CORBIN MD (PCP/Family) Primary Care Physician Patient Instructions: Heavy Periods (DC) Add. Discharge Instructions: Continue to use pads and change her tampons regularly. Continue to take the iron supplement. Call Dr. Ocampo's office on Saturday for an appointment. Change positions slowly. Increase fluid intake. Return to the emergency department for new, urgent healthcare problems. All discharge instructions reviewed with patient and/or family. Voiced understanding. KAMRNY LAINEZ Dec 24, 2020 20:40
[2020-12-24] MEDS ORDERED: ACETAMINOPHEN 325 MG TABLET PO STA (21:14)
[2020-12-24 21:57] VITALS: BP 113/60
== END 2020-12-24 21:57 | disposition home or self-care (01) ==
LOC: EDUNIT# 18:07 → ER 18:08
DX: C50.911 Malignant neoplasm of unspecified site of right female breast (principal); N93.8 Other specified abnormal uterine and vaginal bleeding; F32.9 Major depressive disorder, single episode, unspecified; K21.9 Gastro-esophageal reflux disease without esophagitis; Z79.899 Other long term (current) drug therapy
CPT/HCPCS: 36415; 80053; 85007; 85027

== ENCOUNTER 2020-12-26 15:34 | Outpatient (CLI) | payer BC ==
[2020-12-26] VITALS (13 sets, daily range): BP systolic 96–121; BP diastolic 46–84
[2020-12-26] MEDS ORDERED: NS IV 500 ML 500 ML IV SCH (16:00)
[2020-12-26] MEDS ORDERED: NS IV 500 ML 500 ML ONE (16:41)
[2020-12-26 16:46] LABS: HEMOGLOBIN 6.5 g/dL (11.5-16.0)
[2020-12-26] MEDS ORDERED: ONDANSETRON 4 MG/2 ML (SDV) Z0FRAN IVP ONE (20:45)
[2020-12-26] MEDS ORDERED: ACETAMINOPHEN 500 MG TAB (TYLENOL) PO ONE (20:45)
[2020-12-26] MEDS ORDERED: ACETAMINOPHEN 500 MG TAB (TYLENOL) ONE (20:46)
[2020-12-26] MEDS ORDERED: ONDANSETRON 4 MG/2 ML (SDV) Z0FRAN ONE (20:47)
== END 2020-12-26 22:45 | disposition home or self-care (01) ==
LOC: SDC 15:34
PROVIDERS: ATTEND Family Medicine
DX: D64.9 Anemia, unspecified (principal)
CPT/HCPCS: 36430; 85014; 85018; 86850; 86900; 86901; 86920; P9016; 36415

== ENCOUNTER → 2020-12-26 | Outpatient (CLI) | payer BC ==
[2020-12-26 14:09] LABS: WHITE BLOOD COUNT 1.6 10^3/uL (4.3-11.0)
[2020-12-26 14:14] LABS: HEMATOCRIT 21 % (35-52); HEMOGLOBIN 6.6 g/dL (11.5-16.0); LYMPHOCYTES % (AUTO) 48 % (12-44); MEAN CORPUSCULAR HEMOGLOBIN 29 pg (25-34); MEAN CORPUSCULAR HGB CONC 31 g/dL (32-36); MEAN CORPUSCULAR VOLUME 94 fL (80-99); MEAN PLATELET VOLUME 9.1 fL (9.0-12.2); MONOCYTES % (AUTO) 3 % (0-12); NEUTROPHILS % (AUTO) 45 % (42-75); PLATELET COUNT 197 10^3/uL (130-400)
[2020-12-26 14:15] LABS: BASOPHILS % (AUTO) 1 % (0-10); EOSINOPHILS % (AUTO) 4 % (0-10)
[2020-12-26 14:16] LABS: EOSINOPHILS # (AUTO) 0.1 10^3/uL (0.0-0.3); LYMPHOCYTES # (AUTO) 0.8 X 10^3 (1.0-4.0); NEUTROPHILS # (AUTO) 0.7 X 10^3 (1.8-7.8)
[2020-12-26 14:59] LABS: ATYPICAL LYMPHOCYTES 16 %; BAND NEUTROPHILS 7 %; BASOPHILS % (MANUAL) 0 %; EOSINOPHILS % (MANUAL) 3 %; LYMPHOCYTES % (MANUAL) 33 %; METAMYELOCYTES % 0 %; MONOCYTES % (MANUAL) 1 %; MYELOCYTES % 1 %; NEUTROPHILS % (MANUAL) 39 %
== END ==
LOC: LAB FS 13:49
PROVIDERS: ATTEND Family Medicine
DX: C50.911 Malignant neoplasm of unspecified site of right female breast (principal)
CPT/HCPCS: 36415; 82728; 83540; 83550; 85007; 85027

== ENCOUNTER → 2020-12-28 | Outpatient (CLI) | payer BC ==
[2020-12-28 19:24] LABS: HEMATOCRIT 21 % (35-52); MEAN CORPUSCULAR HEMOGLOBIN 31 pg (25-34); WHITE BLOOD COUNT 1.6 10^3/uL (4.3-11.0)
[2020-12-28 19:25] LABS: BASOPHILS % (AUTO) 1 % (0-10); EOSINOPHILS # (AUTO) 0.1 10^3/uL (0.0-0.3); EOSINOPHILS % (AUTO) 6 % (0-10); LYMPHOCYTES # (AUTO) 0.9 X 10^3 (1.0-4.0); LYMPHOCYTES % (AUTO) 53 % (12-44); MEAN CORPUSCULAR HGB CONC 33 g/dL (32-36); MEAN CORPUSCULAR VOLUME 93 fL (80-99); MEAN PLATELET VOLUME 9.7 fL (9.0-12.2); MONOCYTES # (AUTO) 0.2 X 10^3 (0.0-1.0); MONOCYTES % (AUTO) 11 % (0-12); NEUTROPHILS # (AUTO) 0.4 X 10^3 (1.8-7.8); NEUTROPHILS % (AUTO) 24 % (42-75); PLATELET COUNT 218 10^3/uL (130-400)
[2020-12-28 21:44] LABS: BAND NEUTROPHILS 13 %; BASOPHILS % (MANUAL) 1 %; EOSINOPHILS % (MANUAL) 7 %; LYMPHOCYTES % (MANUAL) 43 %; MONOCYTES % (MANUAL) 11 %; NEUTROPHILS % (MANUAL) 18 %
[2020-12-28 21:45] LABS: ATYPICAL LYMPHOCYTES 5 %; HYPOCHROMASIA 1+; METAMYELOCYTES % 2 %; MICROCYTOSIS 1+; NUCLEATED RED BLOOD CELLS 1
== END ==
LOC: LAB FS 17:46
PROVIDERS: ATTEND Internal Medicine Hematology & Oncology
DX: C50.211 Malignant neoplasm of upper-inner quadrant of right female breast (principal); N93.8 Other specified abnormal uterine and vaginal bleeding; Z17.1 Estrogen receptor negative status [ER-]
CPT/HCPCS: 36415; 82728; 83540; 83550; 85007; 85027

== ENCOUNTER 2020-12-30 08:22 | Outpatient (CLI) | payer BC ==
[2020-12-30] VITALS (7 sets, daily range): BP systolic 103–122; BP diastolic 44–81
[2020-12-30] MEDS: ACETAMINOPHEN 325 MG TABLET PO SCH ×2 (09:25→13:46)
[2020-12-30] MEDS: diphenhydrAMINE 50 MG/ML INJ (BENADRYL) IV SCH ×2 (09:26→13:46)
[2020-12-30] MEDS ORDERED: NS IV 500 ML 500 ML ONE (09:38)
[2020-12-30 13:25] LABS: HEMOGLOBIN 7.8 g/dL (11.5-16.0)
== END 2020-12-30 16:41 ==
LOC: SDC 08:22
PROVIDERS: ATTEND Family Medicine
DX: D64.9 Anemia, unspecified (principal); N93.9 Abnormal uterine and vaginal bleeding, unspecified
CPT/HCPCS: 36430; 85014; 85018; 86850; 86900; 86901; 86920; P9016; 36415

== ENCOUNTER → 2021-01-05 | Outpatient (CLI) | payer BC ==
[2021-01-05 16:10] LABS: WHITE BLOOD COUNT 58.9 10^3/uL (4.3-11.0)
[2021-01-05 16:11] LABS: HEMOGLOBIN 6.5 g/dL (11.5-16.0); MEAN CORPUSCULAR HEMOGLOBIN 31 pg (25-34)
[2021-01-05 16:12] LABS: BASOPHILS # (AUTO) 0.1 10^3/uL (0.0-0.1); BASOPHILS % (AUTO) 0 % (0-10); EOSINOPHILS % (AUTO) 0 % (0-10); HEMATOCRIT 20 % (35-52); LYMPHOCYTES # (AUTO) 0.7 X 10^3 (1.0-4.0); LYMPHOCYTES % (AUTO) 1 % (12-44); MEAN CORPUSCULAR HGB CONC 32 g/dL (32-36); MEAN CORPUSCULAR VOLUME 98 fL (80-99); MEAN PLATELET VOLUME 9.5 fL (9.0-12.2); MONOCYTES # (AUTO) 0.5 X 10^3 (0.0-1.0); MONOCYTES % (AUTO) 1 % (0-12); NEUTROPHILS # (AUTO) 50.2 X 10^3 (1.8-7.8); NEUTROPHILS % (AUTO) 85 % (42-75); PLATELET COUNT 354 10^3/uL (130-400)
[2021-01-05 16:45] LABS: BAND NEUTROPHILS 11 %; BASOPHILS % (MANUAL) 0 %; EOSINOPHILS % (MANUAL) 0 %; LYMPHOCYTES % (MANUAL) 1 %; METAMYELOCYTES % 1 %; MONOCYTES % (MANUAL) 0 %; NEUTROPHILS % (MANUAL) 87 %
[2021-01-05 16:46] LABS: ANISOCYTOSIS MARKED
== END ==
LOC: LAB FS 15:08
PROVIDERS: ATTEND Family Medicine
DX: C50.911 Malignant neoplasm of unspecified site of right female breast (principal)
CPT/HCPCS: 36415; 85007; 85027

== ENCOUNTER 2021-01-06 08:12 | Outpatient (CLI) | payer BC ==
[2021-01-06] VITALS (7 sets, daily range): BP systolic 94–120; BP diastolic 45–71
[2021-01-06] MEDS ORDERED: ACETAMINOPHEN 325 MG TABLET PO ONE (09:30)
[2021-01-06] MEDS ORDERED: diphenhydrAMINE 50 MG/ML INJ (BENADRYL) IV ONE (09:30)
[2021-01-06] MEDS ORDERED: NS IV 500 ML 500 ML ONE (09:43)
[2021-01-06 12:45] LABS: HEMOGLOBIN 6.7 g/dL (11.5-16.0)
[2021-01-06] MEDS ORDERED: ACETAMINOPHEN 325 MG TABLET PO NR (13:15)
[2021-01-06] MEDS ORDERED: diphenhydrAMINE 50 MG/ML INJ (BENADRYL) IV NR (13:15)
== END 2021-01-06 16:20 | disposition home or self-care (01) ==
LOC: SDC 08:12
PROVIDERS: ATTEND Family Medicine
DX: D64.9 Anemia, unspecified (principal); N93.9 Abnormal uterine and vaginal bleeding, unspecified
CPT/HCPCS: 36430; 85014; 85018; 86850; 86900; 86901; 86920; P9016; 36415

== ENCOUNTER 2021-01-08 08:48 | Emergency (ER) | payer BC ==
[~2021-01-08] VITALS: Ht 175.3 cm; Wt 104.3 kg
--- OUTSIDE RECORDS SUMMARY | 2021-01-08 08:51 | XMS REPORT | Encounter Summary ---
Author Author [facility] Organization [facility] Address Unknown Phone Unavailable Care Team Providers Care Procurement Clerk Name Role Phone Reynaldo, Juan Miguel AMBROCIO PCP Encounter Details Care Team Description [place] [address] [place] [address] [phone] Dysfunctional uterine bleeding; Malignant neoplasm of upper-inner quadrant of right breast in female, estrogen receptor negative (HCC) 01/05/2021 Orders Only Oncology: Cancer Ce [facility] [address] [place] [address] Social History Date Tobacco Use Types Packs/Day Years Used Current Every Day Smoker 0.5 4 Smokeless Tobacco: Never Used Comments Alcohol Use Standard Drinks/Week rarely Yes 0 (1 standard drink = 0.6 o z pure alcohol) Alcohol Habits Answer Date Recorded How often do you have a drink containing alcohol? No t asked How many drinks containing alcohol do you have on No t asked a typical day when you are drinking? How often do you have six or more drinks on one Not asked occasion? Comment: rarely 12/01/2020 Sex Assigned at Date Recorded Female 12/15/2020 7:49 AM CDT Date Recorded COVID-19 Exposure Response 01/04/2021 2:41 PM CDT In the last month, have you been in contact with No / Unsure someone who was confirmed or suspected to have Coronavirus / COVID-19? documented as of this encounter Functional Status Date of Assessment Functional Status Response 01/03/2021 Does the patient have a hearing impairment: No 01/03/2021 Does the patient have a visual impairment: Yes 01/03/2021 Does the patient have impaired ambulation: No 01/03/2021 Does the patient have an activity of daily living No (ADL) impairment: 01/03/2021 Does the patient have an instrumental activity of No daily living (IADL) impairment: Date of Assessment Cognitive Status Response 01/03/2021 Does the patient have a cognitive impairment: No documented as of this encounter Plan of Treatment Not on filedocumented as of this encounter Procedures Comments Procedure Name Priority Date/Time Associated Diag nosis CBC AND DIFF Routine 12/28/2020 Dysfunctional u terine bleeding Malignant neoplasm of upper-inner quadrant of right breast in female, estrogen receptor negative (HCC) documented in this encounter Results * CBC AND DIFF (12/28/2020) White Blood VIA [facility] RBC VIA [facility] Hemoglobin VIA [facility] Hematocrit V[facility] MCV [facility] MCH V[facility] MCHC V[facility] Platelet Count [facility] MPV [facility] RDW [facility] Neutrophils [facility] Absolute [facility] Neutrophil [facility] Lymphocytes [facility] Absolute Lymph [facility] Monocytes [facility] Absolute [facility] Monocyte Count [facility] Eosinophil [facility] Absolute [facility] Eosinophil [facility] Basophils [facility] Absolute [facility] Basophil Count [facility] Atypical Lym [facility] Metamyelocyte [facility] Myelocyte [facility] Promyelocyte [facility] Blast [facility] RBC Morph [facility] WBC Morphology [facility] Specimen Blood Narrative Performed At This result has an attachment that is n ot available. Performing Organization Address City/State/ZIP Code P lemuel Number [facility] [address] [address] [phone] [place] documented in this encounter Visit Diagnoses Diagnosis Dysfunctional uterine bleeding Other disorder of menstruation and othe r abnormal bleeding from female genital tract Malignant neoplasm of upper-inner quadr ant of right breast in female, estrogen receptor negative (HCC) documented in this encounter Additional Health Concerns Assessment Noted Time A fall risk assessment has been completed for the pat ient 01/03/2021 11:46 AM CDT PHQ-2 Depression Total Score: 0 12/01/2020 10:33 AM CDT documented as of this encounter
--- OUTSIDE RECORDS SUMMARY | 2021-01-08 08:51 | XMS REPORT | Clinical Summary ---
Author Author [facility] Organization [facility] Address Unknown Phone Unavailable Care Team Providers Care Cisco Engineer Name Role Phone Self, Juan Miguel AMBROCIO PCP Source Comments Some departments are not documenting in the electronic medical record. If you d o not see the information that you expected, contact Release of Information in [facility] Tier 1 Performance Information Management department at [phone] for further assistan ce in locating additional records.[facility] Allergies No Known Active Allergies Medications End [...] increase to 1mg by mouth twice daily. Active PROGESTERONE MICRONIZED Take by 0 PO mouth. Active medroxyPROGESTERone Take one 10 tablet 3 (PROVERA) 10 mg tablet tablet by 1 mouth daily. 12/15/2020 Discontinued (Removed from P TA [...] the skin. 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 Ultrasound: -- Right breast ultrasound 10/20/20 (For agatha Anderson) revealed an irregular hypoechoic mass at [...] Fabrizio Hammond REFERRED BY: Dr. Fabrizio Hammond Resolved Problems Problem Noted Date Resolved Date Encounter for education 12/08/2020 12/27/2020 Encounters Care Team Description Date Type Specialty Gerhard Paige MD Care Coordination 01/06/2021 Telephone Oncology Bethany Christiansen RN Care Coordination 01/06/2021 Telephone Obstetrics & Gyneco logy Gerhard Paige MD Dysfunctional uterine bleeding; Malignant neoplasm of upper-inner quadrant of right breast in female, estrogen receptor negative (HCC) 01/05/2021 Orders Only Oncology Bethany Christiansen RN Care Coordination 01/05/2021 Telephone Obstetrics & Gyneco Bethany Crawford RN 01/05/2021 Documentation Obstetrics & Gyneco logGloria Molina APRN-ROGER 01/04/2021 Hospital Oncology Encounter 01/04/2021 Travel Gerhard Paige MD Malignant neoplasm of upper-inner quadra nt of right breast in female, estrogen receptor negative (HCC) (Primary Dx); Dysfunctional uterine bleeding; Iron deficiency anemia due to chronic blood loss 01/03/2021 Office Visit Oncology Gloria Hyde APRN-NP 01/03/2021 Hospital Oncology Encounter Gloria Hyde APRN-NP Arrived 01/03/2021 Hospital Lab Encounter 01/03/2021 Travel Gerhard Paige MD Dysfunctional uterine bleeding (Primary Dx); Malignant neoplasm of upper-inner quadrant of right breast in female, estrogen receptor negative (HCC) 01/03/2021 Orders Only Oncology Gerhard Paige MD 12/30/2020 Orders Only Oncology Gerhard Paige MD Bleeding/Bruising 12/29/2020 Telephone Oncology Gerhard Paige MD 12/29/2020 Orders Only Oncology Gerhard Paige MD Care Coordination 12/28/2020 Telephone Oncology Yuliya Mortensen RD 12/28/2020 Clinical Oncology Support Telehealth Gloria Hyde APRN-NP H/O menorrhagia (Primary Dx); Malignant neoplasm of upper-inner quadrant of right breast in female, estrogen receptor negative (HCC); Dysfunctional uterine bleeding 12/27/2020 Office Visit Oncology Telehealth Gerhard Paige MD Bleeding/Bruising 12/26/2020 Telephone Oncology Steven Anders MD Heme/Onc Care 12/24/2020 Telephone Oncology Steven Anders MD Heme/Onc Care 12/24/2020 Telephone Oncology Jodi Avila MD 12/22/2020 Orders Only Oncology Gerhard Paige MD 12/20/2020 Hospital Lab Encounter Gerhard Paige MD [...] AGE 5 YEARS AND OVER 12/16/2020 Surgery O'Evette, TkMD Son Ren Donald N, JADA 12/16/2020 Anesthesia Event Neftali Washburn, DO Malignant neoplasm of upper-inner quadra nt of right breast in female, estrogen receptor negative (HCC) 12/16/2020 Hospital Encounter Masoud Mayo RPH 12/15/2020 Orders Only Oncology Gerhard Paige MD 12/14/2020 Hospital Cardiology Encounter Neftali Washburn, DO Surgery 12/14/2020 Telephone General Surgery Neftali Washburn, DO Malignant neoplasm of upper-inner quadra nt of right breast in female, estrogen receptor negative (HCC) (Primary Dx) 12/14/2020 Prep for [facility] General Surgery Gerhard Paige MD Care Coordination 12/14/2020 Telephone Oncology 12/14/2020 Travel Wily Herrera PHARMD Malignant neoplasm of upper-inner quadra nt of right breast in female, estrogen receptor negative (HCC) (Primary Dx) 12/12/2020 Orders Only Oncology Gerhard Paige MD 12/12/2020 Orders Only Oncology Gloria Hyde APRN-BULK PLANT SUPERVISOR Malignant neoplasm of upper-inner quadra nt of [...] Hospital Radiology Encounter 10/20/2020 Hospital Radiology Encounter from Last 3 Months [...] Signs Reading Time Taken Comments Vital Sign 124/72 01/04/2021 2:50 PM CDT Blood Pressure 91 01/04/2021 2:50 PM CDT Pulse 36.7 C (98 F) 01/04/2021 2:50 PM CDT Temperature 20 01/04/2021 2:50 PM CDT Respiratory Rate 100% 01/04/2021 2:50 PM CDT Oxygen Saturation - - Inhaled Oxygen Concentration 103.5 kg (228 lb 3.2 oz) 01/04/2021 2:50 PM CDT Weight 174.6 cm (5' 8.75") 01/04/2021 2:50 PM CDT Height 33.94 01/04/2021 2:50 PM CDT Body Mass Index Plan of Treatment [...] ot Implanted Type Area Manufactur er 12/27/2021 [id number] / N/A / [id number] Port Implantable Infusion Powerport Left: Chest C R BARD Clearvue 6fr Slim Suture - [employer] Implanted: Qty: 1 on 12/16/2020 by Sai Rosen MD at [facility] Procedures Comments Procedure Name Priority Date/Time Associated Diag nosis HC IRON BINDING CAPACITY Routine 01/03/2021 H/O m enorrhagia + %SAT 11:13 AM CDT HC COMPREHENSIVE Routine 01/03/2021 Malignant rebecca plasm of METABOLIC PANEL 11:13 AM CDT upper-inner quadran t of right breast in female, estrogen receptor negative (HCC) HC CBC W/ AUTOMATED DIFF Routine 01/03/2021 Malig nant neoplasm of 11:13 AM CDT upper-inner quadrant of right breast in female, estrogen receptor negative (HCC) CBC AND DIFF Routine 12/28/2020 Dysfunctional u [...] receptor negative, unspecified site of breast (HCC) TX CONSLTJ&REPRT SLIDES 11/29/2020 PREPARED ELSEWHERE 8:39 AM CDT PATHOLOGY REPORTS FROM 11/29/2020 OUTSIDE SCAN 12:00 AM CDT US BREAST BIOPSY EXTERNAL Routine 10/25/2020 IMAGING 12:00 AM CDT US BREAST EXTERNAL Routine 10/20/2020 IMAGING 12:05 AM CDT MAMMO DIAG EXTERNAL Routine 10/20/2020 IMAGING 12:00 AM CDT from Last 3 Months Results * IRON + BINDING CAPACITY + %SAT+ FERRITIN (01/03/2021 11:13 AM CDT) Pathologist [facility] Iron 69 50 - 160 MCG/DL MAIN LAB Iron 390 (H) 270 - 380 MCG/DL [facility] Binding-TIBC % Saturation 18 (L) 28 - 42 % [facility] Ferritin 26 10 - 200 NG/ML [facility] Specimen Blood Performing Organization Address City/State/ZIP Code P lemuel Number MAIN LAB [address] [place] [address] * CBC AND DIFF (01/03/2021 11:13 AM CDT) Only the most recent of 4 results within the time period is included. Pathologist [facility] White Blood 10.2 4.5 - 11.0 K/UL [facility] Cells [place] RBC 2.79 (L) 4.0 - 5.0 M/UL [facility] [place] Hemoglobin 8.4 (L) 12.0 - 15.0 GM/DL [facility] [place] Hematocrit 25.6 (L) 36 - 45 % [facility] [place] MCV 91.9 80 - 100 FL [facility] [place] MCH 30.1 26 - 34 PG [facility] [place] MCHC 32.7 32.0 - 36.0 G/DL [facility] [place] RDW 15.4 (H) 11 - 15 % [facility] [place] Platelet Count 287 150 - 400 K/UL [facility] [place] MPV 8.0 7 - 11 FL [facility] [place] Nucleated RBCs 2 K/UL [facility] [place] Segmented 57 41 - 77 % [facility] Neutrophils [place] Bands 13 (H) 0 - 10 % [facility] [place] Lymphocytes 18 (L) 24 - 44 % [facility] [place] Monocytes 3 (L) 4 - 12 % [facility] [place] Eosinophil 3 0 - 5 % [facility] [place] Basophil 1 0 - 2 % [facility] [place] Metamyelocyte 1 % [facility] [place] Myelocyte 4 % [facility] [place] ANISO PRESENT [facility] [place] Ovalocyte PRESENT [facility] [place] Teardrop PRESENT [facility] [place] Platelet NORMAL [facility] Estimate [place] Absolute 7.14 (H) 1.8 - 7.0 K/UL [facility] Neutrophil [place] Count Manual Specimen Blood Performing Organization Address City/State/ZIP Code P lemuel Number [facility] [place] [address] [place] [address] * COMPREHENSIVE METABOLIC PANEL (01/03/2021 11:13 AM CDT) Only the most recent of 3 results within the time period is included. Sodium 141 137 - 147 MMOL/L [facility] Potassium 3.9 3.5 - 5.1 MMOL/L [facility] Chloride 107 98 - 110 MMOL/L [facility] Glucose 136 (H) 70 - 100 MG/DL [facility] Blood Urea 12 7 - 25 MG/DL [facility] Nitrogen Creatinine 0.99 0.4 - 1.00 MG/DL [facility] Calcium 8.5 8.5 - 10.6 MG/DL [facility] Total Protein 5.6 (L) 6.0 - 8.0 G/DL [facility] Total Bilirubin 0.1 (L) 0.3 - 1.2 MG/DL [facility] Albumin 3.5 3.5 - 5.0 G/DL [facility] Alk Phosphatase 60 25 - 110 U/L [facility] AST (SGOT) 13 7 - 40 U/L [facility] CO2 27 21 - 30 MMOL/L [facility] ALT (SGPT) 13 7 - 56 U/L [facility] Anion Gap 7 3 - 12 [facility] eGFR Non 60 (L) >60 mL/min [facility] Comment: Indonesian The eGFR is not validated f or use in drug dosing adjustments. Continue to use estimated creatinine clearance per dosing reference text. Please contact the Clinical Pharmacist for questions. eGFR >60 >60 mL/min [facility] [place] Comment: The eGFR is not validated for use in drug dosing adjustments. Continue to use estimated creatinine clearance per dosing reference text. Please contact the Clinical Pharmacist for questions. Specimen Blood Performing Organization Address City/State/ZIP Code P lemuel Number [facility] [address] [place] [address] * CHEST SINGLE VIEW (12/16/2020 11:14 AM CDT) Specimen Impressions Performed At Left subclavian chest port placement as described. No acute cardiopulmonary [facility] abnormality. Finalized by Alex Gillette M.D. on 12:18 PM. Dictated by Alex Gillette M.D. [...] 34 OTHER OUTSIDE Index LAB Cardiology Siemens [id number] OTHER OUTSIDE Ultrasound LAB Machine Left Ventricle [...] Follow-up with your physician. Narrative Performed At [facility] MRI BREAST BILAT W/O W CONTRAST: DECEMBER [...] signed and approved by: Ronn Vega M.D. [id number] Procedure Note Interface, Radiant Results - 12/08/2020 11:15 AM CDT [id number] MRI BREAST BILAT W/O W CONTRAST: DECEMBER [...] signed and approved by: Ronn Vega M.D. [id number] IMPRESSION ASSESSMENT: BIRAD 6-Known biopsy proven malignancy RECOMMENDATION: Follow-up with your physician. Performing Organization Address City/State/ZIP Code P lemuel Number [facility] * US BREAST TARGET RT (12/01/2020 9:33 AM CDT) Specimen Impressions Performed At ASSESSMENT: BIRAD 6-Known biopsy proven malignancy [facility] RECOMMENDATION: Treatment plan. Narrative Performed At [id number] US BREAST TARGET RT: RIGHT BREAST - [...] right breast was performed by a trained shale miner blasting. There is irregular not parallel hypoech oic [...] signed and approved by: Shabnam Hill M.D. [id number] Procedure Note Interface, Radiant Results - 12/01/2020 9:45 AM CDT [id number] US BREAST TARGET RT: RIGHT BREAST - DECEMBER 01, 2020 - Standard views. Technologist: Melinda Nunez, Die Developer Prior study comparison: October 20, 2020, diagnostic mammogram. History: 50-year old female presents for additional imaging prior to surgical consultation after ultrasound-guided biopsy of a screening detected mass within the right breast demonstrated malignancy. Outside post procedure mammogram demonstrates a ribbon-shaped tissue marker clip along the posterior superior margin of the mass. Targeted ultrasound of the right breast was performed by a trained shale miner blasting. There is irregular not parallel hypoechoic mass [...] signed and approved by: Shabnam Hill M.D. [id number] IMPRESSION ASSESSMENT: BIRAD 6-Known biopsy proven malignancy RECOMMENDATION: Treatment plan. Performing Organization Address City/State/ZIP Code P lemuel Number [facility] * OUTSIDE PATHOLOGY CONSULT (11/29/2020 8:39 AM CDT) PATHOLOGY [email or web address] Department of Pathology and Laboratory Medicine [address] [place] [address] Surgical Pathology Office: [phone] PATHOLOGY CONSULTATION NAME: SHANIKA SANCHEZ SURG PATH #: [id number] MR #: [id number] ALT ID #: LOCATION: [facility] DATE OF PROCEDURE: 11/29/2020 AGE: 50 SEX: F DATE RECEIVED: 11/29/2020 : 1970 TIME RECEIVED: 08:39 PHYSICIAN: JODI AVILA DATE OF REPORT: 11/29/2020 COPY TO: DATE OF PRINTIN11/29/2020 OUTSIDE INSTITUTION: [facility] Pathology Group [address] [place] [address] ############################## ############################## ############ Final Diagnosis: A. Outside case "[id number]" (Date Collected: 10/25/2020): 1. Right breast, 1:00 [...] involves 2 of 4 cores. Histologic Grade ([place] Histologic Score): III/III Tubule Formation: 3 Nuclear Grade: 3 Mitotic Count (40x objective): 2 Total [place] Score: 8/9 DCIS: Present Architectural Patterns: Solid [...] present and stain as expected. Progesterone Receptor (TX): <1% Negative Stain Intensity: Weak Note: Internal [...] Material Received: A: Outside Slides, x6 slides, [id number], [facility] Pathology Group, [address], [place] [address] History: 50-year-old female. Gross Description: A. Received are six (6) total outside slides and a report labeled "[id number]". mr/11/29/2020 If immunohistochemical stains and/or in situ hybridization are cited in this report, the performance characteristics were determined by the Department of Pathology and Laboratory Medicine of the [facility] ([employer]) in compliance with CLIA'88 [...] of Pathology and Laboratory Medicine of the [facility]. It has not been cleared or approved by the FDA. The FDA has determined that such clearance or approval is not necessary. Specimen Performing Organization Address City/State/ZIP Code P lemuel Number MAIN LAB [address] [place] [address] * PATHOLOGY REPORTS FROM OUTSIDE SCAN (11/29/2020 [...] Phone Address Plan / Dates Group PPO BS [facility] [id number] 2020- PREF CARE Present BLUE [phone] Advance Directives Patient Bee Raiser Explanation Type Date Recorded Advance Directive/DPOA
--- OUTSIDE RECORDS SUMMARY | 2021-01-08 08:51 | XMS REPORT | Encounter Summary ---
Author Author [facility] Organization [facility] Address Unknown Phone Unavailable Care Team Providers Care Internal Medicine Hospitalist Name Role Phone Self, Juan Miguel AMBROCIO PCP Encounter Details Care Team Description Date Type Department 01/04/2021 Travel Social History Date Tobacco Use Types [...]
--- OUTSIDE RECORDS SUMMARY | 2021-01-08 08:51 | XMS REPORT | Encounter Summary ---
Author Author [facility] Organization [facility] Address Unknown Phone Unavailable Care Team Providers Care Psych Therapist Name Role Phone Self, Juan Miguel AMBROCIO PCP Reason for Visit * Reason Onset Date Comments Care Coordination 01/06/2021 Encounter Details Care Team Description Date Type Department Bethany Christiansen RN [address] [place] [address] Care Coordination 01/06/2021 Telephone Obstetrics and Gynecology: Main [place], [facility] [address] [facility]. [address] [place] [address] Social History Date Tobacco Use Types Packs/Day [...] encounter Miscellaneous Notes * Telephone Encounter - Bethany Christiansen RN - 01/06/2021 8:44 AM CDT Patient advised she is currently getting blood transfusion as most recent hemogl obin came back as 6.5. Patient reports continuous vaginal bleeding and states sh e passes blood clots, and endorses pelvic pain. She reports she was started on p rogesterone pills and was given a shot of Zoladex. Patient reports she believes it's helping but again, reports probably not much since her hemoglobin went from 8 to 6.5. Patient advised dysfunctional uterine bleeding started prior to ivanna st cancer diagnosis. She was scheduled to undergo a hysterectomy on 12/02/20 with SHWETA Weeks at [facility], but surgery got postponed d/t breast cancer diagnosis. Patient is planning to establish care with [facility] and wants to discuss possible combo surgery for hysterectomy and lumpectomy/mastect christopehr. I advised patient that the first available clinic with one of our providers for a surgery consult would be on 01/24/[address] Nation at [facility]. Patient advi sed she believes it's fine, but Dr. Paige wanted her to get seen as soon as poss ible. I advised patient that I would reach out to Dr. Nation to discuss timing of appointment. Patient verbalized understanding. Instructed the patient that ansari ving records for her appointment is very important. Instructed patient that ashish use her previous provider was not the referring provider that she would need to reach out and give permission for records to be sent to our clinic; patient ashley perez. Records request sent via fax to [facility] (appointment not es, lab testing results, ultrasound reports, biopsy reports, and pap smears). St aff message to Dr. Nation. Bethany Floyd RN Future Appointments Date Time Provider Department Center 01/17/2021 11:00 AM CHAIROP4 [facility] 01/17/2021 11:00 AM [facility] OP LAB NURSE CHAIR [facility] None 01/17/2021 11:30 AM Gloria Hyde APRN-ROGER [facility] Exam 01/18/2021 3:30 PM CHAIROP4 [facility] 01/24/2021 9:30 AM Cheng Nation MD QVAOBGYJuan A NC MANAGER 01/31/2021 10:45 AM CHAIROP4 [facility] 01/31/2021 10:45 AM [facility] OP LAB NURSE CHAIR [facility] None 01/31/2021 11:15 AM Gerhard Paige MD [facility] Exam 02/01/2021 9:00 AM Emily Fonseca CCC2 [facility] Exam 02/01/2021 2:45 PM CHAIROP2 [facility] Treatme 03/08/2021 10:30 AM Emily Fonseca CCC2 CC Exam 03/13/2021 3:30 PM Gladys Rodriguez PA-C [id number] [facility] Exam 03/13/2021 3:30 PM BIS IC1 BIOIMPEDENCE SPECTROSCOPY [id number] [facility] Exam documented in this encounter Plan of Treatment [...]
--- OUTSIDE RECORDS SUMMARY | 2021-01-08 08:51 | XMS REPORT | Encounter Summary ---
Author Author [facility] Organization [facility] Address Unknown Phone Unavailable Care Team Providers Care Mophead Sewer Name Role Phone Juan Miguel Jacobs MD PCP Reason for Visit * Reason Onset Date Comments Care Coordination 01/06/2021 Encounter Details Care Team Description [place] [address] [address] [phone] Care Coordination 01/06/2021 Telephone [facility] [address], [place] [phone] Social History Date Tobacco Use Types Packs/Day [...] Miscellaneous Notes * Telephone Encounter - Yuliya López RN - 01/06/2021 2:32 PM CDT After we received lab results, Dr. Paige asked that I call Aisha back and conf irm they are giving transfusion for hgb 6.5. I talked with Aisha and she said Divina is getting 2 units PRBC today at [facility] and will have CBC recheck and another transfusion if not up to hgb 7. I thanked her for taking care of Divina. We did discuss that Divina has started Zoladex injections and is on oral Provera to stop menses. * Telephone Encounter - Yuliya López RN - 01/06/2021 10:20 AM CDT Aisha at Dr. Jacobs's office left message after 4 yesterday stating that her WBC was 58.9 on lab check yesterday and they want to know if Dr. Paige aware that s he is high. I discussed with Dr. Paige and called office back this morning. Pieter johns was unavailable, but I left a message that Dr. Paige said this is from the steroids/Neulasta shot given on 01-05 with her treatment. I also requested they fax the lab report to us. documented in this encounter Plan of Treatment [...]
--- OUTSIDE RECORDS SUMMARY | 2021-01-08 08:51 | XMS REPORT | Encounter Summary ---
Author Author [facility] Organization [facility] Address Unknown Phone Unavailable Care Team Providers Care Oceanography Teacher Name Role Phone Self, Juan Miguel AMBROCIO PCP Encounter Details Care Team Description Date Type Department Ndjeb Bethany Floyd RN [address] [place] [address] 01/05/2021 Documentation Obstetrics and Gynecology: [facility], [address] [place] [address] Social History Date Tobacco Use [...] as of this encounter Progress Notes * Bethany Christiansen RN - 01/05/2021 1:25 PM CDT Referral type: Internal.Urgent Referring provider & clinic: Gerhard Paige MD / [facility] Date of referral: 01/03/2021 Reason for referral: Dysfunctional uterine bleeding Important considerations: She is getting chemo for breast cancer and having hemorrhaging with menses wh ich has required blood transfusions Per appointment notes, Divina presents for cycle 2 of dose dense AC. She did well with the chemotherapy but unfortunately she had significant vaginal bleedin g. She did require blood transfusions and got a total of 3 units of blood. She was started on progesterone. She recently completed the course but noticed some further bleeding and she did have a couple pills left so she really started ta diya that. She does have a history of abnormal uterine bleeding and her hysterec kimberly was postponed due to her cancer diagnosis. She currently is on progesteron e and I renewed the prescription today. I am going to give her Zoladex which wi ll hopefully stop her periods. I did make her a referral to [facility]. Pertinent history: Vision decreased, Hip dysplasia, Breast cancer, Bleeding diso rder, back pain, arthritis Last pap smear: 09/2020 (per CareEverywhere records - no results available) Available Records: Appt notes Labs Records can be found in: O2/CareEverywhere Are additional records needed? Yes If so, what? Pap smear US Biopsy Gis Coordinator plan: Call patient o Current symptoms o Medical records o Appointment scheduling Discuss with [facility] provider for timing of appointment Bethany Floyd RN Future Appointments Date Time Provider Department Center 01/17/2021 11:00 AM CHAIROP4 [facility] Treatme 01/17/2021 11:00 AM [facility] NURSE CHAIR [facility] None 01/17/2021 11:30 AM Gloria Hyde, BLEACH BOILER PACKER-CENA [facility] Exam 01/18/2021 3:30 PM CHAIROP4 [facility]OPCLJuan A [facility] Treatme 01/31/2021 10:45 AM CHAIROP4 [facility] Treatme 01/31/2021 10:45 AM [facility] NURSE CHAIR [facility] None 01/31/2021 11:15 AM Gerhard Paige MD [facility] Exam 02/01/2021 9:00 AM SuEmily macedo CCC2 [facility] Exam 02/01/2021 2:45 PM CHAIROP2 [facility] Treatme 03/08/2021 10:30 AM SuEmily macedo CCC2 [facility] Exam 03/13/2021 3:30 PM Gladys Rodriguez PA-C [id number] [facility] Exam 03/13/2021 3:30 PM BIS IC1 BIOIMPEDENCE SPECTROSCOPY [id number] [facility] Exam documented in this encounter Plan of [...]
--- OUTSIDE RECORDS SUMMARY | 2021-01-08 08:52 | XMS REPORT | Encounter Summary ---
Author Author [facility] Organization [facility] Address Unknown Phone Unavailable Care Team Providers Care Clean Up Worker Name Role Phone Self, Juan Miguel AMBROCIO PCP Encounter Details Care Team Description Date Type Department 12/20/2020 Travel Social History Date Tobacco Use Types [...]
--- OUTSIDE RECORDS SUMMARY | 2021-01-08 08:52 | XMS REPORT | Encounter Summary ---
Author Author [facility] Organization [facility] Address Unknown Phone Unavailable Care Team Providers Care Coding Analyst Name Role Phone Juan Miguel Jacobs MD PCP Reason for Visit * Reason Onset Date Comments Care Coordination 12/28/2020 Encounter Details Care Team Description Date [place] [address] [place] [address] [phone] Care Coordination 12/28/2020 [facility] [address] [address] Social History Date Tobacco Use [...] Telephone Encounter - Yuliya López RN - 12/28/2020 2:09 PM CDT I got a message from Zia that he or Divina need to talk to Gloria. He said Gloria had ordered lab to be done at [facility] and that [facility] did not get the orders. He asked that orders be faxed to [phone]. I call ed and talked with Zia. I explained that Gloria is not here today. I see in the chart that Gloria had ordered iron studies. I asked if he knows if th at was the lab Divina was to be getting done. He said it was iron levels and a b lood count since she had been bleeding. I told him I can fax orders. I faxed o rders for CBC and iron studies to [facility]. documented in this encounter Plan of Treatment Not on filedocumented as of this encounter Results * CBC AND DIFF (12/28/2020) White Blood [facility] RBC [facility] Hemoglobin [facility] Hematocrit [facility] MCV [facility] MCH [facility] MCHC [facility] Platelet Count [facility] MPV [facility] RDW [facility] Neutrophils [facility] Absolute [facility] Neutrophil [facility]OS[facility] Count [place] Lymphocytes [facility] Absolute Lymph [facility] Monocytes [facility] Absolute [facility] Monocyte Count [facility] Eosinophil [facility] Absolute [facility] Eosinophil [facility] [place] Basophils [facility] Absolute [facility] Basophil Count [facility] Atypical Lym [facility] Metamyelocyte [facility] Myelocyte [facility] Promyelocyte [facility] Blast [facility] RBC Morph [facility] WBC Morphology [facility] Specimen Blood Narrative Performed At This result has an attachment that is n ot available. Performing Organization Address City/State/ZIP Code P lemuel Number VIA [address] [address] [place] documented in this encounter Visit Diagnoses Diagnosis Dysfunctional uterine bleeding - Primar y Other disorder of menstruation and othe r abnormal bleeding from female genital tract Malignant neoplasm of upper-inner quadr ant of right breast in female, estrogen receptor negative (HCC) documented in this encounter Additional Health Concerns Assessment Noted Time A fall risk assessment has been completed for the pat ient 12/27/2020 1:22 PM CDT PHQ-2 Depression Total Score: 0 12/01/2020 10:33 AM CDT documented as of this encounter
--- OUTSIDE RECORDS SUMMARY | 2021-01-08 08:52 | XMS REPORT | Encounter Summary ---
Author Author [facility] Organization [facility] Address Unknown Phone Unavailable Care Team Providers Care Director Imaging Name Role Phone Reynaldo, Juan Miguel AMBROCIO PCP Encounter Details Care Team Description Date [place] [address] [address] [phone] 12/30/2020 Orders Only Oncology: Cancer [facility] [address] [address] Social History Date Tobacco Use [...]
--- OUTSIDE RECORDS SUMMARY | 2021-01-08 08:52 | XMS REPORT | Encounter Summary ---
Author Author [facility] Organization [facility] Address Unknown Phone Unavailable Care Team Providers Care Marketing Services Coordinator Name Role Phone Self, Juan Miguel AMBROCIO PCP Reason for Visit * Reason Comments Cancer Follow up Encounter Details Care Team Description Date [place] [address] [place] [address] [phone] Malignant neoplasm of upper-inner quadra nt of right breast in female, estrogen receptor negative (HCC) (Primary Dx) 12/20/2020 Office Visit Oncology: Cancer Ce nt, [place] [address] [place] [address] Social History Date Tobacco Use [...] Stage IB (cT1c, cN0, cM0, G3, ER-, SD-, HER2-) - Signed by Gladys Rodriguez PA-C [...] The breast prognostic profile was ER 0, SD 0, HER-2 0. 4. Right breast ultrasound [...]
--- OUTSIDE RECORDS SUMMARY | 2021-01-08 08:52 | XMS REPORT | Encounter Summary ---
Author Author [facility] Organization [facility] Address Unknown Phone Unavailable Care Team Providers Care Starting Sheet Tank Operator Name Role Phone Reynaldo, Juan Miguel AMBROCIO PCP Reason for Visit * Treatment (Routine) Referred By Contact Referred To Contact Status Reason Specialty Diagnoses / [place] [address] [place] [address] [place] [address] [place] [address] Authorized Hematology & Diagnoses Oncology / Malignant neoplasm Hematology and of upper-inner Oncology quadrant of right breast in female, estrogen receptor negative (HCC) Encounter for antineoplastic chemotherapy P rocedures PACLITAXEL (DOSE-DENSE) pegfilgrastim-bmez (ZIEXTENZO) Encounter Details Care Team Description Date Type Department Gloria Hyde, DORA-BOMB SQUAD OFFICER [address] [place] [address] 01/04/2021 Hospital Oncology: Cancer Ce nter, Encounter [place] [address] [place] [address] Social History Date Tobacco Use Types [...] 01/04/2021 2:50 PM CDT Body Mass Index documented in [...] as of this encounter Progress Notes * Margarita Rivas RN - 01/04/2021 3:00 PM CDT Patient has no complaints or changes to report. Zietenzo injection given per plan. Discharged in good condition, ambulatory. 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, estrogen receptor negative (HCC) - Primary documented in this encounter Administered Medications Action Date Dose Rate Site Medication Order MAR Action 01/04/2021 3:02 PM CDT 6 mg Arm, Lef t pegfilgrastim-bmez (ZIEXTENZO) syringe 6 Given mg 6 mg, Subcutaneous, ONCE, 1 dose, On We d 01/04/21 at 1500, -- Not for IV Push administration -- documented in this encounter Orders First Ordered Date Medications Ordered That Might Not Have Count Last Ordered Date Been Administered pegfilgrastim-bmez (ZIEXTENZO) syringe 6 1 01/04/2021 mg documented in this encounter Additional Health Concerns Assessment Noted Time A fall risk assessment has been completed for the pat ient 01/03/2021 11:46 AM CDT PHQ-2 Depression Total Score: 0 12/01/2020 10:33 AM CDT documented as of this encounter
--- OUTSIDE RECORDS SUMMARY | 2021-01-08 08:52 | XMS REPORT | Encounter Summary ---
Author Author [facility] Organization [facility] Address Unknown Phone Unavailable Care Team Providers Care Swing Ride Operator Name Role Phone Self, Juan Miguel AMBROCIO PCP Encounter Details Care Team Description Date Type Department Yuliya Mortensen, RD [address] [facility] [address] [place] [address] 12/28/2020 Clinical Oncology: Cancer Ce nter, Support [employer] [address] [place] [address] Social History Date Tobacco Use [...] as of this encounter Progress Notes * Yuliya Mortensen, RD - 12/28/2020 10:08 AM CDT Clinical Nutrition Assessment Summary Shanika Pierson is a 50 y.o. female with Malignant neoplasm of upper-inne r quadrant of right breast in male, estrogen receptor negative (HCC) Past Medical History:Arthritis Current Treatment Plan: DOXORUBICIN + CYCLOPHOSPHAMIDE (DOSE-DENSE AC) Nutrition Assessment of Patient: Usual Weight: 104.5 kg, 230 lb Desired Weight: 75 kg Estimated Calorie Needs: 1575 (21 kcal/kg/DBW) Estimated Protein Needs: 98 (1.3 g/kg/DBW) Needs to promote: weight maintainence Wt Readings from Last 5 Encounters: 12/20/20 104.2 kg (229 lb 12.8 oz) 12/16/20 103.4 kg (228 lb) 12/14/20 103.4 kg (228 lb) 12/08/20 103.7 kg (228 lb 9.6 oz) 12/06/20 103.2 kg (227 lb 9.6 oz) Spoke with Patient via phone to optimize nutrition during cancer treatment. Nai ent recovering from significant vaginal bleeding prompting an ER visit and was given PRBC, feels she is still a little dehydrated, drinking 120-180 oz fluid da april. She experienced constipation, nausea and headache with first cycle and foun d the constipation with need to take iron very difficult. Her constipation is re solved now. She and her have been researching vegan, Blue Zones and Med iterranean Diets, best diets for Breast Cancer and trying to eat more plant base d. She considers her UBW 230 lbs. Malnutrition Assessment: Adequately nourished Pertinent Labs: Results for SHANIKA PIERSON ( ) as of 12/28/2020 10:02 Ref. Range 12/20/2020 10:11 Sodium Latest Ref Range: 137 - 147 MMOL/L 138 Potassium Latest Ref Range: 3.5 - 5.1 MMOL/L 3.8 Chloride Latest Ref Range: 98 - 110 MMOL/L 104 CO2 Latest Ref Range: 21 - 30 MMOL/L 26 Anion Gap Latest Ref Range: 3 - 12 8 Blood Urea Nitrogen Latest Ref Range: 7 - 25 MG/DL 10 Creatinine Latest Ref Range: 0.4 - 1.00 MG/DL 0.99 eGFR Non Latest Ref Range: >60 mL/min 60 (L) eGFR Latest Ref Range: >60 mL/min >60 Glucose Latest Ref Range: 70 - 100 MG/DL 109 (H) Albumin Latest Ref Range: 3.5 - 5.0 G/DL 3.8 Pertinent Food Allergies/Intolerance: No known food allergies. Nutrition Diagnosis: Food & nutrition-related knowledge deficit related to breast cancer nutrition Intervention/Plan: Discussed nutritional/lifestyle guidelines for breast cancer, along with melissa sheri and protein needs. We discussed importance of preventing weight gain and working toward healthie r weight as to decrease risk for comorbidities and cancer recurrence. Encouraged small, frequent meals and healthful snacks. Patient was provided A CS booklet with tips for managing side effects of chemo. A Plant based diet was encouraged; recommending 1 - 2 cups of fruits and 2 - 3 cups of vegetables. We discussed healthy diet in relation to weight control. I educated the patie nt on MyPlate eating plan (1/4 plate lean protein, 1/4 plate starches, 1/2 plate low starch veggies). We discussed appropriate portion sizes. Aim for at least 5 servings of fruits and vegetables per day. Also focus on whole grains to obtain 25-30g fiber per day. Include more lean protein sources such as fish, poultry, legumes verses red and processed meat. Patient was provided with handout. Provid ed patient with a 1600 calorie meal plan, tips for increasing fruits/vegetables and healthy protein shake recipes to be used for healthy snacks or meal replacem ents. Discussed avoiding processed meats limiting red and to AICR recommendation of less than 18 ounces per week. Physical activity was encouraged as tolerated as strategy for weight control and healthy lifestyle behavior changes. Reinforced need for adequate hydration during chemotherapy. Patient was provided with RD's contact information for further assistance if needed. Will be available PRN. Nutrition Monitoring and Evaluation: Goal:prevent weight gain Time Frame:lifelong The patient was allowed to ask questions and actively participated in creating p rachid of care. I provided the patient with my contact information and instructed p t on how to get in touch with me if questions or concerns arise. Thank you for a [facility] nutrition services to participate in this patients care. Yuliya Mortensen RDN, SERGEANT OF OFFICERS, LD Oncology Hat Cleaner [phone] documented in this encounter Plan of Treatment [...]
--- OUTSIDE RECORDS SUMMARY | 2021-01-08 08:52 | XMS REPORT | Encounter Summary ---
Author Author [facility] Organization [facility] Address Unknown Phone Unavailable Care Team Providers Care Home Health Clinician Name Role Phone Self, Juan Miguel AMBROCIO PCP Encounter Details Care Team Description Date Type Department 01/03/2021 Travel Social History Date Tobacco Use Types [...] AM CDT Date Recorded COVID-19 Exposure Response 01/03/2021 10:36 AM CDT In the last month, have [...]
--- OUTSIDE RECORDS SUMMARY | 2021-01-08 08:52 | XMS REPORT | Encounter Summary ---
Author Author [facility] Organization [facility] Address Unknown Phone Unavailable Care Team Providers Care Director Franchise Sales Name Role Phone Reynaldo, Juan Miguel AMBROCIO PCP Reason for Visit * Reason Comments Cancer Treatment * Treatment (Routine) Referred By Contact Referred To Contact Status Reason Specialty Diagnoses / [place] [address] [place] [address] [place] [address] [place] [address] Authorized Hematology & Diagnoses Oncology / Malignant neoplasm Hematology and of upper-inner Oncology quadrant of right breast in female, estrogen receptor negative (HCC) Encounter for antineoplastic chemotherapy P rocedures DOXORUBICIN + CYCLOPHOSPHAMIDE (DOSE-DENSE AC) palonosetron(+) (ALOXI) aprepitant emulsion (CINVANTI) pegfilgrastim-bmez (ZIEXTENZO) Encounter Details Care Team Description [place] [address] [place] [address] [phone] 12/20/2020 Hospital Oncology: Cancer Ce nter, Encounter [place] [address] [address] Social History Date Tobacco Use [...] documented in this encounter Progress Notes * Melodie Hernandez [...] stated understanding. Denies questions at this cristhian aristeo Patient presented to clinic for treatment. Patient's [...] 1 12/20/2020 IMPLEMENT MEDICATION REACTION 1 12/21/19 ANAPHYLAXIS, AND HYPERSENSITIVITY JENS C documented in this encounter Additional Health Concerns Assessment Noted Time A fall risk assessment has been completed for the pat ient 12/20/2020 10:18 AM CDT PHQ-2 Depression Total Score: 0 12/01/2020 10:33 AM CDT documented as of this encounter
--- OUTSIDE RECORDS SUMMARY | 2021-01-08 08:52 | XMS REPORT | Encounter Summary ---
Author Author [facility] Organization [facility] Address Unknown Phone Unavailable Care Team Providers Care Protein Scientist Name Role Phone Self, Juan Miguel AMBROCIO PCP Encounter Details Care Team Description Date Type Department Jodi Talley MD [address] [place] [address] Malignant neoplasm of unspecified site o f right female breast (HCC) 11/29/2020 Hospital Laboratory: Main Ca mpus, Encounter [facility] [address] [facility] [address], [address] [place] [address] Social History Date Tobacco Use Types Packs/Day [...] Procedure Name Priority Date/Time Associated Diag nosis ND CONSLTJ&REPRT SLIDES 11/29/2020 PREPARED ELSEWHERE 8:39 AM CDT PATHOLOGY REPORTS FROM 11/29/2020 OUTSIDE SCAN 12:00 AM CDT documented in this encounter Results * OUTSIDE PATHOLOGY CONSULT (11/29/2020 8:39 AM CDT) PATHOLOGY [facility] [email or web address] Department of Pathology and Laboratory Medicine [address] [place] [address] Surgical Pathology Office: [phone] PATHOLOGY CONSULTATION NAME: SHANIKA SANCHEZ SURG PATH #: [id number] MR #: [id number] ALT ID #: LOCATION: [facility] DATE OF PROCEDURE: 11/29/2020 AGE: 50 SEX: F DATE RECEIVED: 11/29/2020 : 1970 TIME RECEIVED: 08:39 PHYSICIAN: JODI TALLEY DATE OF REPORT: 11/29/2020 COPY TO: DATE OF PRINTIN11/29/2020 OUTSIDE INSTITUTION: [facility] [address] [place] [address] ############################## ############################## ############ Final Diagnosis: A. Outside case "[id number]" (Date Collected: 10/25/2020): 1. Right breast, 1:00 [...] involves 2 of 4 cores. Histologic Grade ([place] Histologic Score): III/III Tubule Formation: 3 Nuclear [...] present and stain as expected. Progesterone Receptor (ND): <1% Negative Stain Intensity: Weak Note: Internal [...] Material Received: A: Outside Slides, x6 slides, [id number], [facility], [address], [place] [address] History: 50-year-old female. Gross Description: A. Received are six (6) total outside slides and a report labeled "[id number]". mr/11/29/2020 If immunohistochemical stains and/or in situ hybridization are cited in this report, the performance characteristics were determined by the Department of Pathology and Laboratory Medicine of the [facility] ([employer]) in compliance with [...] of Pathology and Laboratory Medicine of the [facility]. It has not been cleared or approved by the FDA. The FDA has determined that such clearance or approval is not necessary. Specimen Performing Organization Address City/State/ZIP Code P lemuel Number MAIN LAB [address] [place] [address] * PATHOLOGY REPORTS FROM OUTSIDE SCAN (11/29/2020 [...]
--- OUTSIDE RECORDS SUMMARY | 2021-01-08 08:52 | XMS REPORT | Encounter Summary ---
Author Author [facility] Organization [facility] Address Unknown Phone Unavailable Care Team Providers Care Cash Room Clerk Name Role Phone Self, Juan Miguel AMBROCIO PCP Encounter Details Care Team Description Date Type Department Gloria Hyde APRN-LAP CHECKER [address] [address] Arrived 01/03/2021 Hospital Laboratory: Cancer [facility] [place] [address], [place] [address] Social History Date Tobacco Use [...] 0 mg tablet by mouth twice daily. 01/03/2021 medroxyPROGESTERone Take one 10 tablet 3 (PROVERA) 10 mg tablet tablet by mouth daily. omeprazole DR (PRILOSEC) Take 20 mg [...] Nausea or estrogen receptor Vomiting. negative (HCC) PROGESTERONE MICRONIZED Take by 0 PO mouth. 12/16/2020 senna/docusate Take two 90 tablet 1 (SENOKOT-S) 8.6/50 mg tablets by tablet mouth twice daily. 12/22/2020 varenicline (CHANTIX REJI) Take 0.5mg by 53 tablet 0 0.5 mg (11)- 1 mg (42) mouth daily tablet for 3 days, then increase to 0.5mg by mouth twice daily for 4 days, then increase to 1mg by mouth twice daily. 09/22/2020 venlafaxine XR [...] enorrhagia + %SAT 11:13 AM CDT HC CBC W/ AUTOMATED DIFF Routine 01/03/2021 Malig nant neoplasm of 11:13 AM CDT upper-inner quadrant of right breast in female, estrogen receptor negative (HCC) HC COMPREHENSIVE Routine 01/03/2021 Malignant rebecca plasm of METABOLIC PANEL 11:13 AM CDT upper-inner quadran t of right breast in female, estrogen receptor negative (HCC) documented in this encounter Results * IRON + BINDING CAPACITY + %SAT+ FERRITIN (01/03/2021 11:13 AM CDT) Iron 69 50 - 160 MCG/DL [facility] Iron 390 (H) 270 - 380 MCG/DL [facility] Binding-TIBC % Saturation 18 (L) 28 - 42 % [facility] Ferritin 26 10 - 200 NG/ML [facility] Specimen Blood Performing Organization Address City/[facility]/ZIP Code P lemuel Number [facility] [address] [place] [address] * COMPREHENSIVE METABOLIC PANEL (01/03/2021 11:13 AM CDT) Sodium 141 137 - 147 MMOL/L [facility] [...] (L) >60 mL/min [facility] Comment: [place] The eGFR is not validated f or use in drug dosing adjustments. Continue to use estimated creatinine clearance per dosing reference text. Please contact the Clinical Pharmacist for questions. eGFR >60 >60 mL/min [facility] [place] Comment: The eGFR is not validated for use in drug dosing adjustments. Continue to use estimated creatinine clearance per dosing reference text. Please contact the Clinical Pharmacist for questions. Specimen Blood Performing Organization Address City/[facility]/ZIP Code P lemuel Number [facility] [address] [place] [address] * CBC AND DIFF (01/03/2021 11:13 AM CDT) White Blood 10.2 4.5 - 11.0 K/UL [facility] Cells [place] RBC 2.79 (L) 4.0 - 5.0 M/UL [facility] [place] Hemoglobin 8.4 (L) 12.0 - 15.0 GM/DL [facility] [place] Hematocrit 25.6 (L) 36 - 45 % [facility] [place] MCV 91.9 80 - 100 FL [facility] [place] MCH 30.1 26 - 34 PG [facility] [place] MCHC 32.7 32.0 - 36.0 G/DL [facility] [place] RDW 15.4 (H) 11 - 15 % [facility] [place] Platelet Count 287 150 - 400 K/UL [facility] [place] MPV 8.0 7 - 11 FL [facility] [place] Nucleated RBCs 2 K/UL [facility] [place] Segmented 57 41 - 77 % [facility] [...] P lemuel Number [facility] [place] [address] [place] [phone] documented in this encounter Visit Diagnoses Diagnosis Malignant neoplasm of upper-inner quadr ant of right breast in female, estrogen receptor negative (HCC) - Primary Dysfunctional uterine bleeding Other disorder of menstruation and othe r abnormal bleeding from female genital tract H/O menorrhagia Personal history of other genital syste m and obstetric disorders documented in this encounter Additional Health Concerns Assessment Noted Time A fall risk assessment has been completed for the pat ient 01/03/2021 11:46 AM CDT PHQ-2 Depression Total Score: 0 12/01/2020 10:33 AM CDT documented as of this encounter
--- OUTSIDE RECORDS SUMMARY | 2021-01-08 08:52 | XMS REPORT | Encounter Summary ---
Author Author [facility] Organization [facility] Address Unknown Phone Unavailable Care Team Providers Care Die Engraver Name Role Phone Self, Juan Miguel AMBROCIO [...]
--- OUTSIDE RECORDS SUMMARY | 2021-01-08 08:52 | XMS REPORT | Encounter Summary ---
Author Author [facility] Organization [facility] Address Unknown Phone Unavailable Care Team Providers Care Cooler Man Name Role Phone Reynaldo, Juan Miguel AMBROCIO PCP Reason for Visit * Radiology Services (Routine) Referred By Contact Referred To Contact Status Reason Specialty Diagnoses / Procedures Jodi Avila MD [address] [place] [address] Canceled Radiology Diagnoses Malignant neoplasm of right breast in female, estrogen receptor negative, unspecified site of breast (HCC) P rocedures MAMMO DIAG BILAT Encounter Details Care Team Description Date Type Department Jodi Avila MD [address] [place], [place] [id number] Canceled (Office-Scheduling Error) 12/01/2020 [facility] [address] [place] [phone] Social History Date Tobacco Use Types Packs/Day [...]
--- OUTSIDE RECORDS SUMMARY | 2021-01-08 08:52 | XMS REPORT | Encounter Summary ---
Author Author [facility] Organization [facility] Address Unknown Phone Unavailable Care Team Providers Care Assembler Trim Name Role Phone Reynaldo, Juan Miguel AMBROCIO PCP Encounter Details Care Team Description [place] [address] [place] [address] [phone] 12/20/2020 Hospital Laboratory: Cancer [facility] [address] [address] Social History Date Tobacco Use [...] (L) >60 mL/min [facility] Comment: Sam[place] The eGFR is not validated f or use in drug dosing adjustments. Continue to use estimated creatinine clearance per dosing reference text. Please contact the Clinical Pharmacist for questions. eGFR >60 >60 mL/min [facility] [place] Comment: The eGFR is not validated for use in drug dosing adjustments. Continue to use estimated creatinine clearance per dosing reference text. Please contact the Clinical Pharmacist for questions. Specimen Blood Performing Organization Address City/State/ZIP Code P lemuel Number [facility] [address] [place] [address] * CBC AND DIFF (12/20/2020 10:11 AM CDT) White Blood 7.0 4.5 - 11.0 K/UL [facility] Cells [place] RBC 4.18 4.0 - 5.0 M/UL [facility] [place] Hemoglobin 12.2 12.0 - 15.0 GM/DL [facility] Hematocrit 38.1 36 - 45 % [facility] [place] MCV 91.1 80 - 100 FL [facility] [place] MCH 29.2 26 - 34 PG [facility] [place] MCHC 32.1 32.0 - 36.0 G/DL [facility] [place] RDW 15.2 (H) 11 - 15 % [facility] [place] Platelet Count 259 150 - 400 K/UL [facility] [place] MPV 7.4 7 - 11 FL [facility] [place] Neutrophils 63 41 - 77 % [facility] [place] Lymphocytes 27 24 - 44 % [facility] [place] Monocytes 6 4 - 12 % [facility] [place] Eosinophils 3 0 - 5 % [facility] [place] Basophils 1 0 - 2 % [facility] [place] Absolute 4.50 1.8 - 7.0 K/UL [facility] Neutrophil [place] Count Absolute Lymph 1.90 1.0 - 4.8 K/UL [facility] Count [place] Absolute 0.40 0 - 0.80 K/UL [facility] Monocyte Count [place] Absolute 0.20 0 - 0.45 K/UL [facility] Eosinophil [place] Count Absolute 0.10 0 - 0.20 K/UL [facility] Basophil Count [place] Specimen Blood Performing Organization Address City/State/ZIP Code P lemuel Number [facility] [place] [address] [place] [address] documented in this encounter Visit Diagnoses Diagnosis [...]
--- OUTSIDE RECORDS SUMMARY | 2021-01-08 08:52 | XMS REPORT | Encounter Summary ---
Author Author [facility] Organization [facility] Address Unknown Phone Unavailable Care Team Providers Care Software Testing Specialist Name Role Phone Reynaldo, Juan Miguel AMBROCIO PCP Reason for Visit * Treatment (Routine) Referred By Contact Referred To Contact Status Reason Specialty Diagnoses / [place] [address] [place] [address] [place] [address] [place] [address] Authorized Hematology & Diagnoses Oncology / Malignant neoplasm Hematology and of upper-inner Oncology quadrant of right breast in female, estrogen receptor negative (HCC) Encounter for antineoplastic chemotherapy P rocedures DOXORUBICIN + CYCLOPHOSPHAMIDE (DOSE-DENSE AC) palonosetron(+) (ALOXI) aprepitant emulsion (CINVANTI) pegfilgrastim-bmez (ZIEXTENZO) Encounter Details Care Team Description Date Type Department Gloria Hyde APRN-BALL WORKER [address] [place] [address] [phone] 01/03/2021 Hospital Oncology: Cancer Ce nter, Encounter [place] [address] [place] [address] Social History Date Tobacco Use Types [...] documented in this encounter Progress Notes * Petrona Morgan RN - 01/03/2021 11:00 AM CDT CHEMO NOTE Verified chemo consent signed and in chart. Verified initiate chemo order in O2 Blood return positive via: Port (Single) BSA and dose double checked (agree with orders as written) with: yes see MAR Labs/applicable tests checked: CBC and Comprehensive Metabolic Panel (CMP) Chemo regime: Drug/cycle/day cycle 2 Adriamycin, Cytoxan; cycle 1 Zoladex Rate verified and armband double checkwith second RN: yes Patient education offered and stated understanding. Denies questions at this cristhian e. documented in this encounter Miscellaneous Notes * Addendum Note - Ananya Bunch - 01/03/2021 11:00 AM CDT Encounter addended by: Ananya Bunch on: 01/06/2021 11:00 AM Actions taken: Charge Capture section accepted 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, estrogen receptor negative (HCC) - Primary Dysfunctional uterine bleeding Other disorder of menstruation and othe r abnormal bleeding from female genital tract documented in this encounter Administered Medications Action Date Dose Rate Site Medication Order MAR Action 01/03/2021 12:26 PM CDT 130 mg aprepitant emulsion (CINVANTI) 7.2 mg/mL Given injection 130 mg 130 mg, Intravenous, ONCE, 1 dose, On Sat01/03/21 at 1230, Give IV push over 2 minutes 01/03/2021 1:10 PM CDT 1,300 mg 630 mL/hr cyclophosphamide (CYTOXAN) 1,300 mg in Given - New sodium chloride 0.9% (NS) 315 mL IVPB Bag 1,300 mg (rounded from 1,344 mg = 600 mg/m2 2.24 m2 Treatment Plan Recorded BSA), Intravenous, 315 mL, Administer over 0. 5 Hours, ONCE, 1 dose, On Sat01/03/21 at 1245, NOTE: This is a HIGH ALERT Medication. 01/03/2021 12:25 PM CDT 12 mg dexAMETHasone (DECADRON) tablet 12 mg Given 12 mg, Oral, ONCE, 1 dose, On Sat 1 at 1230 01/03/2021 1:03 PM CDT 134.4 mg DOXOrubicin (ADRIAMYCIN) injection 134.4 Given mg 134.4 mg (60 mg/m2 2.24 m2 Treatment Plan Recorded BSA), Intravenous, ONCE, 1 dose, On Sat 1 at 1245, Give IV Push over 3-5 minutes. 01/03/2021 1:47 PM CDT 3.6 mg Abdomina l Tissue goserelin (ZOLADEX) implant syringe 3.6 Given mg 3.6 mg, Subcutaneous, ONCE, 1 dose, On Sat01/03/21 at 1230, NURSING: To be administered by Chemotherapy Competency-validated nurse. NOTE: This is a HIGH ALERT Medication. 01/03/2021 1:55 PM CDT 500 Units heparin lock flush PF syringe 500 Units Given 500 Units, Intra-catheter, ONCE, 1 dose , On Sat01/03/21 at 1130, NOTE: This is a HIGH ALERT Medication. 01/03/2021 1:45 PM CDT 2 mL Abdomina l Tissue lidocaine PF 1% (10 mg/mL) injection 2 Given mL 2 mL, Subcutaneous, ONCE, 1 dose, On 01/03/21 at 1230, Use Locally as Anesthetic. 01/03/2021 12:25 PM CDT 0.25 mg palonosetron(+) (ALOXI) injection 0.25 Given mg 0.25 mg, Intravenous, ONCE, 1 dose, On Sat01/03/21 at 1230 documented in this encounter Additional Health Concerns Assessment Noted Time A fall risk assessment has been completed for the pat ient 01/03/2021 11:46 AM CDT PHQ-2 Depression Total Score: 0 12/01/2020 10:33 AM CDT documented as of this encounter
--- OUTSIDE RECORDS SUMMARY | 2021-01-08 08:52 | XMS REPORT | Encounter Summary ---
Author Author [facility] Organization [facility] Address Unknown Phone Unavailable Care Team Providers Care Energy Risk Management Analyst Name Role Phone Reynaldo, Juan Miguel AMBROCIO PCP Encounter Details Care Team Description Date [place] [address] [place] [address] [phone] 12/08/2020 Hospital Laboratory: Cancer [facility] [address] [address] Social History Date Tobacco Use [...]
--- OUTSIDE RECORDS SUMMARY | 2021-01-08 08:52 | XMS REPORT | Encounter Summary ---
Author Author [facility] Organization [facility] Address Unknown Phone Unavailable Care Team Providers Care Fermentation Scientist Name Role Phone Reynaldo, Juan Miguel AMBROCIO PCP Encounter Details Care Team Description Date [place] [address], [place] [address] [phone] 12/20/2020 Orders Only Oncology: Cancer [facility] [address] [address] Social History Date Tobacco Use [...]
--- OUTSIDE RECORDS SUMMARY | 2021-01-08 08:52 | XMS REPORT | Encounter Summary ---
Author Author [facility] Organization [facility] Address Unknown Phone Unavailable Care Team Providers Care Acid Conditioner Name Role Phone Juan Miguel Jacobs MD PCP Reason for Visit * Reason Onset Date Comments Heme/Onc Care 12/24/2020 Encounter Details Care Team Description [place] [address] [place] [address] [phone] Heme/Onc Care 12/24/2020 Telephone Oncology: Cancer Ce [place] [address] [place] [address] Social History Date Tobacco Use [...] previous blood counts were normal so at [facility] t checking those and having gynecologic input [...]
--- OUTSIDE RECORDS SUMMARY | 2021-01-08 08:52 | XMS REPORT | Encounter Summary ---
Author Author [facility] Organization [facility] Address Unknown Phone Unavailable Care Team Providers Care Deliverer Food Name Role Phone Self, Juan Miguel AMBROCIO PCP Reason for Visit * Reason Comments Follow Up Cancer Encounter Details Care Team Description Date Type Department Gloria Hyde APRN-TOOLING ENGINEER [address], [place] [address] [phone] H/O menorrhagia (Primary Dx); Malignant neoplasm of upper-inner quadrant of right breast in female, estrogen receptor negative (HCC); Dysfunctional uterine bleeding 12/27/2020 Office Visit Oncology: Cancer Ce nter, Telehealth [place] [address] [place] [address] Social History Date Tobacco Use [...] as of this encounter Progress Notes * Gloria Hyde APRN-ROGER - 12/27/2020 1:30 PM CDT Name: Divina Sanchez : 1970 AGE: 50 y.o. DATE OF SERVICE: 12/27/2020 Subjective: Reason for Visit: Follow Up Divina Sanchez is a 50 y.o. female. Cancer Staging Malignant neoplasm of upper-inner quadrant of right breast in female, estrogen r eceptor negative (HCC) Staging form: Breast, AJCC 8th Edition - Clinical stage from 11/24/2020: Stage IB (cT1c, cN0, cM0, G3, ER-, UT-, HER2-) - Signed by Gladys Rodriguez PA-C on 12/01/2020 Obtained patient's verbal consent to treat them and their agreement to [facility] policy and NPP via this telehealth visit during the [facility] History of Present Illness Divina is a patient of Dr. Paige'jon who had a screening mammogram in September 2020 [facility] revealed heterogeneously dense breast tissue. A solitary [...] The breast prognostic profile was ER 0, UT 0, HER-2 0. Right breast ultrasound at [...] but was postponed due to cancer diagnosis. Started AC on 12/20/20. Interval Events: Divina presents via telehealth after starting treatment for her breast cancer. Si nce starting treatment, she has developed significant vaginal bleeding and went to the ER. She received a unit of PRBC on 12/26/20 but reports that toward the en d of her infusion, she had a reaction with nausea, feeling cold and having chill s. She got most of the blood but the very end was stopped. They did not do a pos t-transfusion CBC. She was started on progesterone daily for 10 days. She repo rts that the bleeding has stopped. She is following now with her primary care loree limon. Other than the bleeding, she reports that she had significant constipati on which was ultimately relieved with magnesium citrate. She has had a headache for the past week but that is finally getting better. She had some nausea but it was well controlled with as needed Zofran and Compazine. They did get their pegfilgrastim shot locally but going forward would like all of their pegfilgrast im injections here at the cancer center. No fever, chills, cough. She does hav e shortness of breath with exertion. She mentions that she is taking oral iron daily. Medical History: Diagnosis Date Arthritis Back pain defect Bleeding disorder (HCC) Breast cancer (HCC) 11/2020 right breast Hip dysplasia Vision decreased Surgical History: Procedure Laterality Date SECTION 2007 HERNIA REPAIR 2007 HIP REPLACEMENT 2016 left hip INSERTION TUNNELED CENTRAL VENOUS ACCESS DEVICE WITH SUBCUTANEOUS PORT - AGE 5 YEARS AND OVER Left 12/16/2020 Performed by Neftali Washburn DO at [facility] OR FLUOROSCOPIC GUIDANCE CENTRAL VENOUS ACCESS DEVICE PLACEMENT/ REPLACEMENT/ R EMOVAL Left 12/16/2020 Performed by Neftali Washburn DO at [facility] OR KNEE SURGERY Left 1979's-2016 multiple hip/knee surgeries Review of Systems Constitutional: Positive for fatigue. Negative for chills and fever. Respiratory: Positive for shortness of breath. Negative for cough. Gastrointestinal: Positive for constipation and nausea. Negative for diarrhea an d vomiting. Genitourinary: Positive for vaginal bleeding. Neurological: Positive for headaches. Objective: cyanocobalamin (VITAMIN B-12) 100 mcg tablet [...] hours as needed for Nausea or Vomiting. PROGESTERONE MICRONIZED PO Take by mouth. senna/docusate (SENOKOT-S) 8.6/50 mg tablet Take two tablets by mouth twice daily. varenicline (CHANTIX REJI) 0.5 mg (11)- 1 mg (42) tablet Take 0.5mg by mouth daily for 3 days, then increase to 0.5mg by mouth twice daily for 4 days, then i ncrease to 1mg by mouth twice daily. venlafaxine XR (EFFEXOR XR) 150 mg capsule TAKE 1 CAPSULE BY MOUTH ONCE KIM Y WITH FOOD FOR 90 DAYS venlafaxine XR (EFFEXOR XR) 75 mg capsule TAKE 1 CAPSULE BY MOUTH ONCE DAILY WITH FOOD FOR 90 DAYS There were no vitals filed for this visit. There is no height or weight on file to calculate BMI. Fatigue Scale: 10-Extreme Pain Addressed: N/A Patient Evaluated for a Clinical Trial: No treatment clinical trial available fo r this patient. Eastern Cooperative Oncology Group performance status is 0, Fully active, able t o carry on all pre-disease performance without restriction.. Physical Exam Constitutional: Appearance: Normal appearance. HENT: Head: Normocephalic and atraumatic. Neurological: Mental Status: She is alert and oriented to person, place, and time. Mental s tatus is at baseline. Psychiatric: Mood and Affect: Mood normal. Behavior: Behavior normal. Limited physical exam as this was a telehealth visit. CBC w diff CBC with Diff Latest Ref Rng & Units 12/20/2020 12/08/2020 WBC 4.5 - 11.0 K/UL 7.0 7.7 RBC 4.0 - 5.0 M/UL 4.18 3.87(L) HGB 12.0 - 15.0 GM/DL 12.2 11.8(L) HCT 36 - 45 % 38.1 35.8(L) MCV 80 - 100 FL 91.1 92.5 MCH 26 - 34 PG 29.2 30.5 MCHC 32.0 - 36.0 G/DL 32.1 33.0 RDW 11 - 15 % 15.2(H) 15.0 PLT 150 - 400 K/UL 259 238 MPV 7 - 11 FL 7.4 8.3 NEUT 41 - 77 % 63 65 ANC 1.8 - 7.0 K/UL 4.50 5.11 LYMA 24 - 44 % 27 26 ALYM 1.0 - 4.8 K/UL 1.90 2.00 KATYA 4 - 12 % 6 6 AMONO 0 - 0.80 K/UL 0.40 0.43 EOSA 0 - 5 % 3 2 AEOS 0 - 0.45 K/UL 0.20 0.16 BASA 0 - 2 % 1 1 ABAS 0 - 0.20 K/UL 0.10 0.05 Comprehensive Metabolic Profile CMP Latest Ref Rng & Units 12/20/2020 12/08/2020 NA 137 - 147 MMOL/L 138 139 K 3.5 - 5.1 MMOL/L 3.8 4.0 CL 98 - 110 MMOL/L 104 106 CO2 21 - 30 MMOL/L 26 27 GAP 3 - 12 8 6 BUN 7 - 25 MG/DL 10 8 CR 0.4 - 1.00 MG/DL 0.99 1.09(H) GLUX 70 - 100 MG/DL 109(H) 88 CA 8.5 - 10.6 MG/DL 8.7 9.0 TP 6.0 - 8.0 G/DL 6.1 6.1 ALB 3.5 - 5.0 G/DL 3.8 3.8 ALKP 25 - 110 U/L 58 54 ALT 7 - 56 U/L 13 14 TBILI 0.3 - 1.2 MG/DL 0.1(L) 0.2(L) GFR >60 mL/min 60(L) 54(L) GFRAA >60 mL/min >60 >60 Assessment and Plan: Right breast invasive ductal carcinoma, ER/UT/HER2 negative diagnosed on 10/25/20 . -- Started neoadjuvant AC on 12/20/20. Received pegfilgrastim locally. However, w lowld like to receive at starting with Cycle 2. Menorrhagia: Severe menorrhagia after her most recent cycle of treatment. She re quired one unit of PRBC which she received on 12/26/20. She is now taking progest erone x 10 days and bleeding has stopped. Will get follow up CBC tomorrow. Follo wing locally with [facility] and her PCP. May consider Zoladex for ovarian suppression while receiving chemotherapy until she is able to have her hysterectomy. Iron deficiency anemia: Hemoglobin down to 6.8 g/dl per patient report. Received a unit of PRBC. Will check iron studies at next lab draw. Constipation: Better now. Recommend starting a stool softener or laxative on day 1 of treatment; take senna or miralax as needed. Headache: Better now. Neutropenia: We discussed that blood counts will be at their lowest at this time . She should call any time for temperature > 100.4, any time day or night. RTC: 01/03/21 for Md visit and treatment. Call sooner for questions or concerns. T documented in this encounter Plan of Treatment Not on filedocumented as of this encounter Results * IRON + BINDING CAPACITY + %SAT+ FERRITIN (01/03/2021 11:13 AM CDT) Iron 69 50 - 160 MCG/DL [facility] Iron 390 (H) 270 - 380 MCG/DL [facility] Binding-TIBC % Saturation 18 (L) 28 - 42 % [facility] Ferritin 26 10 - 200 NG/ML [facility] Specimen Blood Performing Organization Address City/State/ZIP Code P lemuel Number [facility] [address] [place] [address] documented in this encounter Visit Diagnoses Diagnosis H/O menorrhagia - Primary Personal history of other genital syste m and obstetric disorders Malignant neoplasm of upper-inner quadr ant of right breast in female, estrogen receptor negative (HCC) Dysfunctional uterine bleeding Other disorder of menstruation and othe r abnormal bleeding from female genital tract documented in this encounter Historical Medications * This list may reflect changes made after this encounter. Start Date End Date Medication Sig Dispensed Refills PROGESTERONE MICRONIZED Take by 0 PO mouth. added in this encounter Additional Health Concerns Assessment Noted Time A fall risk assessment has been completed for the pat ient 12/27/2020 1:22 PM CDT PHQ-2 Depression Total Score: 0 12/01/2020 10:33 AM CDT documented as of this encounter
--- OUTSIDE RECORDS SUMMARY | 2021-01-08 08:52 | XMS REPORT | Encounter Summary ---
Author Author [facility] Organization [facility] Address Unknown Phone Unavailable Care Team Providers Care Manager Business Planning Name Role Phone Reynaldo, Juan Miguel AMBROCIO PCP Encounter Details Care Team Description [place] [address] [place] [address] [phone] Dysfunctional uterine bleeding (Primary Dx); Malignant neoplasm of upper-inner quadrant of right breast in female, estrogen receptor negative (HCC) 01/03/2021 Orders Only Oncology: Cancer Ce [facility] [address] [place] [address] Social History Date Tobacco Use [...] of this encounter Progress Notes * Yuliya López RN - 01/03/2021 8:20 AM CDT Divina called this morning and I talked with her. She said her grandsons that leigh sebastian staying with her since Saturday were exposed to someone who got Covid. Her daug hter from [place] is staying with her also. None of them have tested positive fo r Covid and none have symptoms. I asked Divina if she has symptoms, and she said she is sneezing some, but no symptoms of Covid. I told her it is fine for her to come for appointment since no confirmed positive or symptoms among her family in the home. She said she also wanted us to know she is bleeding again and it is getting pretty heavy. She states she got 2 units of blood last week. I discuss ed with Dr. Paige and we will get type and cross drawn today in case she is low. documented in this encounter Plan of Treatment Not on filedocumented as of this encounter Visit Diagnoses Diagnosis Dysfunctional uterine bleeding - Primar y Other disorder of menstruation and othe r abnormal bleeding from female genital tract Malignant neoplasm of upper-inner quadr ant of right breast in female, estrogen receptor negative (HCC) documented in this encounter Orders First Ordered Date Nursing Count Last Ordered Date IMPLEMENT CONFIRMATION BLOOD TYPE (CBT) 1 01/03/2021 PROTOCOL IMPLEMENT SUSPECTED TRANSFUSION REACTION 1 01/03/2021 PROTOCOL NOTIFY PHYSICIAN IF: 1 01/03/2021 VITAL SIGNS FOR TRANSFUSION 1 01/03/2021 documented in this encounter Additional Health Concerns Assessment Noted Time A fall risk assessment has been completed for the pat ient 01/03/2021 11:46 AM CDT PHQ-2 Depression Total Score: 0 12/01/2020 10:33 AM CDT documented as of this encounter
--- OUTSIDE RECORDS SUMMARY | 2021-01-08 08:52 | XMS REPORT | Encounter Summary ---
Author Author [facility] Organization [facility] Address Unknown Phone Unavailable Care Team Providers Care Health And Physical Education Teacher Name Role Phone Reynaldo, Juan Miguel AMBROCIO PCP Reason for Referral * Test (Routine) Referred By Contact Referred To Contact Status Reason Specialty Diagnoses / [place] [address] [place] [address] [facility] Echo/Pv [address] [place] [phone] Authorized Cardiology Diagnoses Malignant neoplasm of right breast in female, estrogen receptor negative, unspecified site of breast (HCC) P rocedures 2D + DOPPLER ECHO AR ECHO TTHRC R-T 2D W/WOM-MODE COMPL SPEC&COLR D Electronically signed by Gerhard Paige MD at Reason for Visit * Test (Routine) Referred By Contact Referred To Contact Status Reason Specialty Diagnoses / [place] [address] [place] [address] [facility] [address] [place] [phone] Authorized Cardiology Diagnoses Malignant neoplasm of right breast in female, estrogen receptor negative, unspecified site of breast (HCC) P rocedures 2D + DOPPLER ECHO AR ECHO TTHRC R-T 2D W/WOM-MODE COMPL SPEC&COLR D Encounter Details Care Team Description Date [place] [address] [place] [address] [phone] 12/14/2020 Hospital Cardiology: [facility] [address] [place] [address] Social History Date Tobacco Use Types Packs/Day [...] 34 OTHER OUTSIDE Index LAB Cardiology Siemens [id number] OTHER OUTSIDE Ultrasound LAB Machine Left Ventricle [...]
--- OUTSIDE RECORDS SUMMARY | 2021-01-08 08:52 | XMS REPORT | Encounter Summary ---
Author Author [facility] Organization [facility] Address Unknown Phone Unavailable Care Team Providers Care Concrete Block Molder Name Role Phone Self, Juan Miguel AMBROCIO PCP Encounter Details Care Team Description Date Type Department Jodi Avila MD [address] [place] [address] 12/22/2020 Orders Only Oncology: David salomon, [facility] [address] [place] [address] Social History Date Tobacco Use [...]
--- OUTSIDE RECORDS SUMMARY | 2021-01-08 08:52 | XMS REPORT | Encounter Summary ---
Author Author [facility] Organization [facility] Address Unknown Phone Unavailable Care Team Providers Care Computer Operations Specialist Name Role Phone Juan Miguel Jacobs MD PCP Reason for Referral * Radiology Services (Routine) Referred By Contact Referred To Contact Status Reason Specialty Diagnoses / Procedures Jodi Avila MD [address] [place] [address] [address] [place] [address] Authorized Radiology Diagnoses Malignant neoplasm of upper-inner quadrant of right breast in female, estrogen receptor negative (HCC) P rocedures MRI BREAST BILAT WO/W CONTRAST Electronically signed by Jodi Avila MD at Reason for Visit * Radiology Services (Routine) Referred By Contact Referred To Contact Status Reason Specialty Diagnoses / Procedures Jodi Avila MD [address] [place] [address] [address] 1 [place] [address] Authorized Radiology Diagnoses Malignant neoplasm of upper-inner quadrant of right breast in female, estrogen receptor negative (HCC) P rocedures MRI BREAST BILAT WO/W CONTRAST Encounter Details Care Team Description Date Type Department Jodi Avila MD [address] [place], [place] [id number] 12/08/2020 Hospital Imaging MRI: Samoan Encounter Teller, [facility] [address] [place] [address] Social History Date Tobacco Use [...] LAB Basophil Count Specimen Performing Organization Address City/State/[facility] Code P lemuel Number [facility] [address] [place] [address] * COMPREHENSIVE METABOLIC PANEL (12/08/2020 10:54 AM [...] (L) >60 mL/min [facility] Comment: [place] The eGFR is not validated f or use in drug dosing adjustments. Continue to use estimated creatinine clearance per dosing reference text. Please contact the Clinical Pharmacist for questions. eGFR >60 >60 mL/min [facility] [place] Comment: The eGFR is not validated for use in drug dosing adjustments. Continue to use estimated creatinine clearance per dosing reference text. Please contact the Clinical Pharmacist for questions. Specimen Performing Organization Address City/State/ZIP Code P lemuel Number [facility] [address] [place] [address] * MRI BREAST BILAT WO/W CONTRAST (12/08/2020 10:43 AM CDT) Specimen Impressions Performed At ASSESSMENT: BIRAD 6-Known biopsy proven malignancy [facility] RESULTS RECOMMENDATION: Follow-up with your physician. Narrative Performed At [facility] [place] BREAST BILAT W/O W CONTRAST: DECEMBER [...] signed and approved by: Ronn Vega M.D. [id number] Procedure Note Interface, Radiant Results - 12/08/2020 11:15 AM CDT [id number] MRI BREAST BILAT W/O W CONTRAST: DECEMBER [...] signed and approved by: Ronn Vega M.D. [id number] IMPRESSION ASSESSMENT: BIRAD 6-Known biopsy proven malignancy [...] 20 mL, Intravenous, ONCE, 1 dose, On u 12/08/20 at 1045, NOTE: This is a HIGH ALERT Medication. 12/08/2020 10:41 AM CDT 50 mL sodium chloride PF 0.9% injection 50 mL Given 50 mL, Intravenous, ONCE, 1 dose, On u 12/08/20 at 1045, DO NOT SEND [...]
--- OUTSIDE RECORDS SUMMARY | 2021-01-08 08:52 | XMS REPORT | Encounter Summary ---
Author Author [facility] Organization [facility] Address Unknown Phone Unavailable Care Team Providers Care Adjudication Specialist Name Role Phone Reynaldo, Juan Miguel AMBROCIO PCP Reason for Visit * Reason Onset Date Comments Bleeding/Bruising 12/29/2020 Encounter Details Care Team Description [place] [address] [place] [address] Bleeding/Bruising 12/29/2020 [facility]phone [facility] [address] [place] [address] Social History Date Tobacco Use [...] encounter Miscellaneous Notes * Telephone Encounter - Tereza Hartman RN - 12/29/2020 10:27 AM CDT Returned Felecia call. She called to report she is bleeding again and she is askmirta pearce if we have her lab results from yesterday. Stated at this time, not aware of any results, but will ask and also call Dr Sophie lyn's office in [facility]. Asked her if she is on her progesterone. She states yes. Also advised her to co ntact Dr Jacobs's office too. After trying 3 different phone numbers for [facility], labs were faxed to us. Called Divina and spoke with her and her . Divina states she had reaction t o blood at [facility], but not sure she was premedicated. Also spoke with her . They asked if she could have blood transfusion here. Stated to her that it was not easily arranged, she would need to have lab done prior to having the transfusion and it would take time for her to have the infusion, possibly having them to stay in the area. Logistically, it was more practical for them to have the transfusion in [place]. The , states he understands. Also stated to Divina her WBC is low. She states she is aware of this with the la st lab she had done. Contacted Dr Jacobs's nurse, Glen and request they arrange for 2 units of PRBC riki or Divina, since she is bleeding. Glen states she will run this by Dr Jacobs. And will arrange it per his order. Faxed lab and cover sheet to [phone]. documented in this encounter Plan of Treatment [...]
--- OUTSIDE RECORDS SUMMARY | 2021-01-08 08:52 | XMS REPORT | Encounter Summary ---
Author Author [facility] Organization [facility] Address Unknown Phone Unavailable Care Team Providers Care Color Adviser Name Role Phone Reynaldo, Juan Miguel AMBROCIO PCP Encounter Details Care Team Description Date [place] [address] [address] [phone] 12/29/2020 Orders Only Oncology: Cancer [facility] [address] [address] Social History Date Tobacco Use [...]
--- OUTSIDE RECORDS SUMMARY | 2021-01-08 08:52 | XMS REPORT | Encounter Summary ---
Author Author [facility] Organization [facility] Address Unknown Phone Unavailable Care Team Providers Care Manager Valuation Name Role Phone Reynaldo, Juan Miguel AMBROCIO PCP Reason for Referral * Consult, Test & Treat (Urgent) Referred By Contact Referred To Contact Status Reason Specialty Diagnoses / [place] [address] [place] [address] [facility] [employer] [address] [place] [address] [address], [address] [place] [address] Authorized Specialty Services Obstetrics & Diagnoses Required Gynecology Malignant neoplasm of upper-inner quadrant of right breast in female, estrogen receptor negative (HCC) Dysfunctional uterine bleeding Comments She is getting chemo for breast cancer and having hemorrhaging with menses which has required blood transfusions Electronically signed by Gerhard Paige MD at Reason for Visit * Reason Comments Cancer Follow up Encounter Details Care Team Description [place] [address] [place] [address] [phone] Malignant neoplasm of upper-inner quadra nt of right breast in female, estrogen receptor negative (HCC) (Primary Dx); Dysfunctional uterine bleeding; Iron deficiency anemia due to chronic blood loss 01/03/2021 [facility] [address] [place] [phone] Social History Date Tobacco Use Types Packs/Day [...] Signs Reading Time Taken Comments Vital Sign 106/67 01/03/2021 11:42 AM CDT Blood Pressure 97 01/03/2021 11:42 AM CDT Pulse 36.4 C (97.6 F) 01/03/2021 11:42 AM CDT Temperature 16 01/03/2021 11:42 AM CDT Respiratory Rate 99% 01/03/2021 11:42 AM CDT Oxygen Saturation - - Inhaled Oxygen Concentration 103 kg (227 lb) 01/03/2021 11:42 AM CDT Weight 174.6 cm (5' 8.75") 01/03/2021 11:42 AM CDT Height 33.77 01/03/2021 11:42 AM CDT Body Mass Index documented in [...] Date End Date Prescription Sig Dispensed Refills 01/03/2021 medroxyPROGESTERone Take one 10 tablet 3 (PROVERA) 10 mg tablet tablet by mouth daily. documented in this encounter Progress Notes * Gerhard Paige MD - 01/03/2021 11:30 AM CDT Name: Divina Sanchez : 1970 AGE: 50 y.o. DATE OF SERVICE: 01/03/2021 Subjective: Reason for Visit: Cancer Follow up Divina Sanchez is a 50 y.o. female. Cancer Staging Malignant neoplasm of upper-inner quadrant of right breast in female, estrogen r eceptor negative (HCC) Staging form: Breast, AJCC 8th Edition - Clinical stage from 11/24/2020: Stage IB (cT1c, cN0, cM0, G3, ER-, IL-, HER2-) - Signed by Gladys Rodriguez PA-C [...] The breast prognostic profile was ER 0, IL 0, HER-2 0. 4. Right breast ultrasound at 12/01/2020 revealed an irregular not parallel hy [...] placed 12/06/20 Interval History Divina presents for cycle 2 of dose dense AC. She did well with the chemotherapy but unfortunately she had significant vaginal bleeding. She did require blood transfusions and got a total of 3 units of blood. She was started on progestero ne. She recently completed the course but noticed some further bleeding and she did have a couple pills left so she really started taking that. Review of Systems Constitutional: Negative for activity [...] PO) Take 500 mg by mouth daily. (Patient not taking: Reported on 01/03/2021) docusate sodium (STOOL SOFTENER PO) Take by [...] DAILY WITH FOOD FOR 90 DAYS Vitals: 01/03/21 1142 BP: 106/67 BP Source: Arm, Left Upper Patient Position: Sitting Pulse: 97 Resp: 16 Temp: 36.4 C (97.6 F) TempSrc: Oral SpO2: 99% Weight: 103 kg (227 lb) Height: 174.6 cm (68.75") PainSc: Four Body mass index is 33.77 kg/m. Pain Score: Four Pain Loc: Generalized (menstrual cramping) Fatigue Scale: 10-Extreme Pain Addressed: N/A Patient [...] person, place, and time. Assessment and Plan: 1. T1CN0 triple negative breast cancer. We will proceed with cycle 2 of chemot herapy today. 2. Menorrhagia. She does have a history of abnormal uterine bleeding and her h ysterectomy was postponed due to her cancer diagnosis. She currently is on prog esterone and I renewed the prescription today. I am going to give her Zoladex w hich will hopefully stop her periods. I did make her a referral to [facility]. 3. Anemia. Her hemoglobin is above 8 and she is asymptomatic right now. She c urrently is taking oral iron. She did receive 3 units of blood. I have iron st udies pending and based on that we will consider IV iron. She has an appointmen t a few days to see her primary care doctor and I think a repeat CBC would be ap propriate if she is still bleeding. documented in this encounter Plan of Treatment Order Schedule Name Type Priority Associated Diag noses Ordered: 01/03/2021 AMB REFERRAL TO [facility] Outpatient Routine Maligna nt neoplasm of Referral upper-inner quadrant of right breast in female, estrogen receptor negative (HCC) Dysfunctional uterine bleeding documented as of this encounter Visit Diagnoses Diagnosis Malignant neoplasm of upper-inner quadr ant of right breast in female, estrogen receptor negative (HCC) - Primary Dysfunctional uterine bleeding Other disorder of menstruation and othe r abnormal bleeding from female genital tract Iron deficiency anemia due to chronic b lood loss Iron deficiency anemia secondary to blo od loss (chronic) documented in this encounter Additional Health Concerns Assessment Noted Time A fall risk assessment has been completed for the pat ient 01/03/2021 11:46 AM CDT PHQ-2 Depression Total Score: 0 12/01/2020 10:33 AM CDT documented as of this encounter
--- OUTSIDE RECORDS SUMMARY | 2021-01-08 08:52 | XMS REPORT | Encounter Summary ---
Author Author [facility] Organization [facility] Address Unknown Phone Unavailable Care Team Providers Care Vocational Nurse Name Role Phone Juan Miguel Jacobs MD PCP Reason for Visit * Radiology Services (Routine) Referred By Contact Referred To Contact Status Reason Specialty Diagnoses / Procedures Joid Avila MD [address] [place] [address] New Request Radiology Diagnoses Malignant neoplasm of right breast in female, estrogen receptor negative, unspecified site of breast (HCC) P rocedures US BREAST TARGET RT US BREAST COMPLETE BILAT Encounter Details Care Team Description Date Type Department Jodi Avila MD [address] [place], [place] [id number] 12/01/2020 Hospital Imaging Ultrasound: Encounter [place], [facility] [address] [place] [phone] Social History Date Tobacco Use Types Packs/Day [...] RESULTS RECOMMENDATION: Treatment plan. Narrative Performed At [id number] US BREAST TARGET RT: RIGHT BREAST - [...] right breast was performed by a trained customer marketing manager. There is irregular not parallel hypoech oic [...] signed and approved by: Shabnam Hill M.D. [id number] Procedure Note Interface, Radiant Results - 12/01/2020 9:45 AM CDT [id number] US BREAST TARGET RT: RIGHT BREAST - DECEMBER 01, 2020 - Standard views. Technologist: Melinda Nunez, Drapery Hand Prior study comparison: October 20, 2020, diagnostic mammogram. History: 50-year old female presents for additional imaging prior to surgical consultation after ultrasound-guided biopsy of a screening detected mass within the right breast demonstrated malignancy. Outside post procedure mammogram demonstrates a ribbon-shaped tissue marker clip along the posterior superior margin of the mass. Targeted ultrasound of the right breast was performed by a trained customer marketing manager. There is irregular not parallel hypoechoic mass [...] signed and approved by: Shabnam Hill M.D. [id number] IMPRESSION ASSESSMENT: BIRAD 6-Known biopsy proven malignancy [...]
--- OUTSIDE RECORDS SUMMARY | 2021-01-08 08:52 | XMS REPORT | Encounter Summary ---
Author Author [facility] Organization [facility] Address Unknown Phone Unavailable Care Team Providers Care Crew Leader/Control Room Operator Name Role Phone Juan Miguel Jacobs MD PCP Reason for Visit * Reason Onset Date Comments Heme/Onc Care 12/24/2020 Encounter Details Care Team Description [place] [address] [place] [address] [phone] Heme/Onc Care 12/24/2020 Telephone Oncology: Cancer Ce sara Crosby 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
--- OUTSIDE RECORDS SUMMARY | 2021-01-08 08:52 | XMS REPORT | Encounter Summary ---
Author Author [facility] Organization [facility] Address Unknown Phone Unavailable Care Team Providers Care Electronic Tech Name Role Phone Self, Juan Miguel AMBROCIO PCP Encounter Details Care Team Description Date Type Department Neftali Washburn, [address] [place], [place] [address] Malignant neoplasm of upper-inner quadra nt of right breast in female, estrogen receptor negative (HCC) (Primary Dx) 12/14/2020 Prep for Case General Surgery: In [facility], [facility] [address] [place] [address] Social History Date Tobacco Use [...]
--- OUTSIDE RECORDS SUMMARY | 2021-01-08 08:52 | XMS REPORT | Encounter Summary ---
Author Author [facility] Organization [facility] Address Unknown Phone Unavailable Care Team Providers Care Garnett Room Worker Name Role Phone Reynaldo, Juan Miguel AMBROCIO PCP Reason for Visit * Auth/Cert Referred By Contact Referred To Contact Status Reason Specialty Diagnoses / Procedures Diagnoses Malignant neoplasm of upper-inner quadrant of right breast in female, estrogen receptor negative (HCC) Malignant neoplasm of upper-inner quadrant of right breast in female, estrogen receptor negative (HCC) [C50.211, Z17.1] P rocedures MT INSJ TUNNELED CTR VAD W/SUBQ PORT AGE 5 YR/> MT FLUORO CENTRAL VENOUS ACCESS DEV PLACEMENT INSERTION TUNNELED CENTRAL VENOUS ACCESS DEVICE WITH SUBCUTANEOUS PORT - AGE 5 YEARS AND OVER FLUOROSCOPIC GUIDANCE CENTRAL VENOUS ACCESS DEVICE PLACEMENT/ REPLACEMENT/ REMOVAL Encounter Details Care Team Description Date Type Department Tk Mccauley MD [address] [place] [address] [phone] Az Cline CRNA [address] [place] [address] [phone] 12/16/2020 Anesthesia Operating Room: Leon Arizmendi, [facility] [address] [place] [phone] Anesthesia Record Responsible Anesthesiologist Anesthesia Start Time [...] Vein Light Used; 1; Therapy completed; LORETTA Roajs 12/16/20; 1224 12/16/20 1225 by Rob, Butcher All Round Wounds 12/16/20; 1030; Surgical incision; Left ; [...] PLACEMENT/ REPLACEMENT/ R EMOVAL (N/A ) Location: [facility] OR 6 / [facility] MAIN OR/PERIOP Surgeons: Neftali Washburn L, Physical Assessment Vital Signs (last filed in [...] with patient. Plan discussed with: anesthesiologist and SALES REPRESENTATIVE PUBLIC UTILITIES. documented in this encounter Plan of Treatment [...]
--- OUTSIDE RECORDS SUMMARY | 2021-01-08 08:52 | XMS REPORT | Encounter Summary ---
Author Author [facility] Organization [facility] Address Unknown Phone Unavailable Care Team Providers Care Mock Up Assembler Name Role Phone Self, Juan Miguel AMBROCIO PCP Reason for Visit * Auth/Cert Referred By Contact Referred To Contact Status Reason Specialty Diagnoses / Procedures Diagnoses Malignant neoplasm of upper-inner quadrant of right breast in female, estrogen receptor negative (HCC) Malignant neoplasm of upper-inner quadrant of right breast in female, estrogen receptor negative (HCC) [C50.211, Z17.1] P rocedures MA INSJ TUNNELED CTR VAD W/SUBQ PORT AGE 5 YR/> MA FLUORO CENTRAL VENOUS ACCESS DEV PLACEMENT INSERTION TUNNELED CENTRAL VENOUS ACCESS DEVICE WITH SUBCUTANEOUS PORT - AGE 5 YEARS AND OVER FLUOROSCOPIC GUIDANCE CENTRAL VENOUS ACCESS DEVICE PLACEMENT/ REPLACEMENT/ REMOVAL Encounter Details Care Team Description Date [place] [address] [place] [address] [phone] Malignant neoplasm of upper-inner quadra nt of right breast in female, estrogen receptor negative (HCC) 12/16/2020 Hospital Operating Room: Leon Arizmendi, [facility] [address] [place] [address] Social History Date Tobacco Use [...] DOWN. [address] NOHEMI CRANDALL [facility] READING ROOM AND VERBALLY TOLD POR T [...] Rosen MD General Surgery, Chief Resident Pager #[phone] Associated attestation - Neftali Washburn DO - [...] 50 y.o. female : 1970 M RN#: [id number] DATE OF OPERATION: 12/16/2020 Surgeon(s) and Role: [...] at the level of the [facility] clavicle, walked down the clavicle, turned [...] 15 blade, transverse incision was created in [facility] infraclavicular area to encompass the entrance [...] previously created subcutaneous pocket and attached to [facility] anterior chest wall with interrupted sutures [...] Implant Name Type Inv. Item Serial No. Vet Assistant Lot No. LRB No. Used Action PORT IMPLANTABLE INFUSION POWERPORT CLEARVUE 6FR SLIM SUTURE - SN/A PORT IMPLAN TABLE INFUSION POWERPORT CLEARVUE 6FR SLIM SUTURE N/A [employer] [id number] Left 1 Implanted Drains: None Disposition: PACU [...] does not conta in a result. [facility] Performing Organization Address City/State/ZIP Code P lemuel Number [facility] documented in this encounter Visit Diagnoses [...] Removed from B-12) (VITAMIN B12 PO) mouth. MOCK UP ASSEMBLER Med List documented as of this encounter [...] lactate (HALDOL) injection 1 1 12/16/2020 mg heparin (porcine) injection 1 [...]
--- OUTSIDE RECORDS SUMMARY | 2021-01-08 08:52 | XMS REPORT | Encounter Summary ---
Author Author [facility] Organization [facility] Address Unknown Phone Unavailable Care Team Providers Care Real Estate Specialist Name Role Phone Self, Juan Miguel AMBROCIO PCP Reason for Visit * Auth/Cert Referred By Contact Referred To Contact Status Reason Specialty Diagnoses / Procedures Diagnoses Malignant neoplasm of upper-inner quadrant of right breast in female, estrogen receptor negative (HCC) Malignant neoplasm of upper-inner quadrant of right breast in female, estrogen receptor negative (HCC) [C50.211, Z17.1] P rocedures [place] INSJ TUNNELED CTR VAD W/SUBQ PORT AGE 5 YR/> [place] FLUORO CENTRAL VENOUS ACCESS DEV PLACEMENT INSERTION TUNNELED CENTRAL VENOUS ACCESS DEVICE WITH SUBCUTANEOUS PORT - AGE 5 YEARS AND OVER FLUOROSCOPIC GUIDANCE CENTRAL VENOUS ACCESS DEVICE PLACEMENT/ REPLACEMENT/ REMOVAL Encounter Details Care Team Description Date [place] [address] [place] [address] [phone] INSERTION TUNNELED CENTRAL VENOUS ACCESS DEVICE WITH SUBCUTANEOUS PORT - AGE 5 YEARS AND OVER 12/16/2020 Surgery Operating Room: Leon Arizmendi, [facility] [address] [place] [phone] Surgery Details Trauma Case? Date/Time Status Location [...] LINES DOWN. [address] [facility]IL[facility] READING ROOM AND VERBALLY TOLD POR [...] Rosen MD General Surgery, Chief Resident Pager #[phone] Associated attestation - Neftali Washburn DO - [...] 50 y.o. female : 1970 M RN#: [id number] DATE OF OPERATION: 12/16/2020 Surgeon(s) and Role: * Neftali Washburn, DO - Primary * Sai Rosen MD [...] Implant Name Type Inv. Item Serial No. Medical Billing Assistant Lot No. LRB No. Used Action PORT IMPLANTABLE INFUSION POWERPORT CLEARVUE 6FR SLIM SUTURE - SN/A PORT IMPLAN TABLE INFUSION POWERPORT CLEARVUE 6FR SLIM SUTURE N/A [employer] [id number] Left 1 Implanted Drains: None Disposition: PACU [...] does not conta in a result. [facility]ENT Performing Organization Address City/State/ZIP Code P lemuel [...] Removed from B-12) (VITAMIN B12 PO) mouth. DIRECTOR DATA ARCHITECTURE Med List documented as of this encounter [...]
--- OUTSIDE RECORDS SUMMARY | 2021-01-08 08:52 | XMS REPORT | Encounter Summary ---
Author Author [facility] Organization [facility] Address Unknown Phone Unavailable Care Team Providers Care Cartoon Designer Name Role Phone Reynaldo, Juan Miguel AMBROCIO PCP Reason for Visit * Reason Onset Date Comments Bleeding/Bruising 12/26/2020 Encounter Details Care Team Description Date [place] [address] [place] [address] Bleeding/Bruising 12/26/2020 [facility] [address] [place] [address] Social History Date Tobacco Use [...] Miscellaneous Notes * Telephone Encounter - Tereza Hartman, RN - 12/26/2020 9:08 AM CDT Divina called today. She reports she went to ER at [facility] in [place]. She was given IV fluids due to being dehydrated. She states her hemoglobin was 10.0. Today she continues to have a heavy flow of blood and is wearing adult diapers. 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 She states she was originally scheduled for hystere ctomy but Dr Avila advised her to wait on the hysterectomy and have chemothera py, which her [employer] MIXER did remind her she had been scheduled for the hysterectomy. N othing else was done for her at ER. Today she states she is taking 2 iron tabs per day and drinking fluids. Also she asked about "something Dr Paige states I could take to stop me from having eliza ods". Suggested to her yes, that perhaps she would start with an injection to pu t her in chemical menopause. She states yes that was the idea. Stated I would talk with Dr Paige and call her back. After speaking with Dr Paige, called Divina. Stated to her Dr Paige states she ne eds to see her [employer] M[employer]ER and receive an injection of progesterone or depot provera in order to stop her bleeding or at least slow the bleeding down, as she is activel y bleeding vaginally. Divina states she had seen her [employer]ARD [employer] B[employer] MIXER in ER and he acted like there was nothing he could order for her. Stated yes, there is. She asked if she could call Dr Jacobs and stated to her yes, he might be able to help her. Discussed with her when her Hemoglobin does drop to 7.0 , she would need blood t ransfusion, sometimes even at right below 8.0 due to symptoms. She states she un derstands. She reports Dr Jacobs did call her this am, due to receiving ER report and offered to have her come in or draw labs. Divina and her both on phone and state they will call Dr Jacobs and thanked me for calling back. Called Divina, since seeing her phone number come up but no message. She states s he just left her PCP and received a call her Hemoglobin is 6.6 and she is going to have blood transfusion. She was told [facility] in [place] will call her. Also Dr Jacobs is putting her on Progesterone daily for 10 days. Stated to her th is is all good. She states she will need to decide in the future what to do abou t having hysterectomy. She plans to speak with Dr Paige when she sees him next. documented in this encounter Plan of Treatment [...]
--- NOTE | 2021-01-08 08:56 | ED GU-Female ---
General Stated Complaint: VAGINAL BLEEDING History of Present Illness Date Seen by Provider: Jan 08, 2021 Time Seen by Provider: 08:51 Initial Comments 50-year-old female presents with concern for low hemoglobin. Patient has been having vaginal bleeding since June and has frequent blood transfusions. Patient's last blood transfusion was 2 days ago. Patient reports that she needs a hysterectomy however she has an aggressive form of breast cancer and they started her on treatment for that. That they were planning on waiting until after treatment to get a hysterectomy. She reports that when her blood level is low she gets shaky and her heart feels like it is fast and beating harder. She states she has no symptoms today. Allergies and Home Medications Allergies Coded Allergies: No Known Drug Allergies (Unverified , 11/25/20) Patient Home Medication List Home Medication List Reviewed: Yes Cyanocobalamin (Vitamin B-12) (Vitamin B12) 2,500 Mcg Tab.chew, 2,500 MCG PO DAILY, (Reported) Entered as Reported by: MAEVE CATES on 11/25/20 1022 Ferrous Sulfate (Iron) Unknown Strength Tablet, Unknown Dose PO DAILY, (Reported) Entered as Reported by: MAEVE CATES on 11/25/20 1022 Loratadine (Loratadine) 10 Mg Tablet, 10 MG PO DAILY, (Reported) Entered as Reported by: MAEVE CATES on 11/25/20 1022 Naproxen Sodium (Naproxen Sodium) 220 Mg Tablet, 440 MG PO BID, (Reported) Entered as Reported by: MAEVE CATES on 11/25/20 1022 [place]-3/Dha/Epa/Fish Oil (Fish Oil 500 mg Softgel) 1 Each Capsule, 1 EACH PO DAILY, (Reported) Entered as Reported by: MAEVE CATES on 11/25/20 1022 Omeprazole (Omeprazole) 20 Mg Tablet.dr, 20 MG PO HS, (Reported) Entered as Reported by: MAEVE CATES on 11/25/20 1022 Sennosides/Docusate Sodium (Stool Softener Tablet) 1 Each Tablet, 1 EACH PO BID, (Reported) Entered as Reported by: MAEVE CATES on 11/25/20 1022 Venlafaxine HCl (Venlafaxine HCl) 50 Mg Tablet, 225 MG PO DAILY, (Reported) Entered as Reported by: MAEVE CATES on 11/25/20 1022 Review of Systems Review of Systems Constitutional: see HPI Respiratory: No cough, No short of breath Cardiovascular: palpitations Gastrointestinal: see HPI Genitourinary: see HPI Musculoskeletal: no symptoms reported Skin: no symptoms reported Psychiatric/Neurological: No Symptoms Reported Hematologic/Lymphatic: See HPI Past Gjjwmsw-Uygkph-Kzizgt Hx Immunizations Up To Date First/Initial COVID19 Vaccinat: JULY 2020 Second COVID19 Vaccination Quan: AUGUST 2020 Seasonal Allergies Seasonal Allergies: Yes Past Medical History Surgeries: No (HERNIA, TOTAL LEFT HIP 2016) Abdominal, Section, Joint Replacement, Orthopedic Respiratory: No Cardiac: No Neurological: No Genitourinary: Yes (STRESS INCONTINENCE ) Gastrointestinal: Yes Gastroesophageal Reflux Musculoskeletal: No Endocrine: No HEENT: No Cancer: Yes Breast Psychosocial: Yes Depression Integumentary: No Blood Disorders: Yes (ANEMIA ) Adverse Reaction/Blood Tranf: No (HAS HAD PREVIOUS TRANSFUSIONS WITHOUT COMPLICATION) Physical Exam Vital Signs Vital Signs - First Documented 01/08/21 08:53 Temp 36.3 Pulse 110 Resp 20 B/P (MAP) 129/78 (95) Pulse Ox 100 O2 Delivery Room Air Capillary Refill : Height, Weight, BMI Height: '" Weight: lbs. oz. kg; 34.00 BMI Method: General Appearance: no apparent distress Neck: full range of motion, supple Cardiovascular: tachycardia Respiratory: lungs clear, normal breath sounds Gastrointestinal: No distended Extremities: normal range of motion, normal inspection Neurologic/Psychiatric: alert, normal mood/affect, oriented x 3 Skin: pallor Progress/Results/Core Measures Suspected Sepsis SIRS Temperature: Pulse: Respiratory Rate: Laboratory Tests 01/08/21 09:10: White Blood Count 6.4 Blood Pressure / Mean: Laboratory Tests 01/08/21 09:10: Creatinine 0.86, Platelet Count 284, Total Bilirubin 0.2 Results/Orders Lab Results Laboratory Tests Test 01/08/21 09:10 Range/Units White Blood Count 6.4 4.3-11.0 10^3/uL Red Blood Count 2.34 L 3.80-5.11 10^6/uL Hemoglobin 7.2 L 11.5-16.0 g/dL Hematocrit 22 L 35-52 % Mean Corpuscular Volume 93 80-99 fL Mean Corpuscular Hemoglobin 31 25-34 pg Mean Corpuscular Hemoglobin Concent 33 32-36 g/dL Red Cell Distribution Width 15.8 H 10.0-14.5 % Platelet Count 284 130-400 10^3/uL Mean Platelet Volume 9.4 9.0-12.2 fL Immature Granulocyte % (Auto) 13 % Neutrophils (%) (Auto) 77 H 42-75 % Lymphocytes (%) (Auto) 8 L 12-44 % Monocytes (%) (Auto) 1 0-12 % Eosinophils (%) (Auto) 0 0-10 % Basophils (%) (Auto) 1 0-10 % Neutrophils # (Auto) 4.9 1.8-7.8 X 10^3 Lymphocytes # (Auto) 0.5 L 1.0-4.0 X 10^3 Monocytes # (Auto) 0.1 0.0-1.0 X 10^3 Eosinophils # (Auto) 0.0 0.0-0.3 10^3/uL Basophils # (Auto) 0.1 0.0-0.1 10^3/uL Immature Granulocyte # (Auto) 0.8 H 0.0-0.1 10^3/uL Neutrophils % (Manual) 92 % Lymphocytes % (Manual) 8 % Hypersegmented Neutrophils SLIGHT Anisocytosis MODERATE Tear Drop Cells SLIGHT Elliptocytes SLIGHT Sodium Level 137 135-145 MMOL/L Potassium Level 3.9 3.6-5.0 MMOL/L Chloride Level 105 98-107 MMOL/L Carbon Dioxide Level 24 21-32 MMOL/L Anion Gap 8 5-14 MMOL/L Blood Urea Nitrogen 15 7-18 MG/DL Creatinine 0.86 0.60-1.30 MG/DL Estimat Glomerular Filtration Rate 70 BUN/Creatinine Ratio 17 Glucose Level 156 H 70-105 MG/DL Calcium Level 8.3 L 8.5-10.1 MG/DL Corrected Calcium 8.9 8.5-10.1 MG/DL Total Bilirubin 0.2 0.1-1.0 MG/DL Aspartate Amino Transf (AST/SGOT) 11 5-34 U/L Alanine Aminotransferase (ALT/SGPT) 13 0-55 U/L Alkaline Phosphatase 89 40-136 U/L Total Protein 5.1 L 6.4-8.2 GM/DL Albumin 3.3 3.2-4.5 GM/DL My Orders Orders - WARNER,FRANCOISE L DO Cbc With Automated Diff (01/08/21 08:56) Comprehensive Metabolic Panel (01/08/21 08:56) Type And Screen (01/08/21 08:56) Manual Differential (01/08/21 09:10) Vital Signs/I&O 01/08/21 08:53 Temp 36.3 Pulse 110 Resp 20 B/P (MAP) 129/78 (95) Pulse Ox 100 O2 Delivery Room Air Capillary Refill : Progress Note : Progress Note Patient's hemoglobin is stable at 7.2. At this time she does not need a blood transfusion. She has an appointment with Dr. Jacobs tomorrow. She will be discharged home and I encouraged her to keep that appointment. Patient was stable upon discharge Departure Impression Primary Impression: Dysfunctional uterine bleeding Additional Impression: Acute blood loss anemia Disposition: 01 HOME, SELF-CARE Condition: Stable Departure-Patient Inst. Referrals: SG JACOBS MD (PCP/Family) Primary Care Physician Patient Instructions: Anemia Caused by Low Iron, Normocytic Normochromic Anemia (DC) Add. Discharge Instructions: Keep your appointment with your primary care provider tomorrow. FRANCOISE WARNER DO Jan 08, 2021 08:56
[2021-01-08 09:14] LABS: HEMATOCRIT 22 % (35-52); HEMOGLOBIN 7.2 g/dL (11.5-16.0); MEAN CORPUSCULAR HEMOGLOBIN 31 pg (25-34); MEAN CORPUSCULAR HGB CONC 33 g/dL (32-36); MEAN CORPUSCULAR VOLUME 93 fL (80-99); MEAN PLATELET VOLUME 9.4 fL (9.0-12.2); PLATELET COUNT 284 10^3/uL (130-400); WHITE BLOOD COUNT 6.4 10^3/uL (4.3-11.0)
[2021-01-08 09:15] LABS: BASOPHILS # (AUTO) 0.1 10^3/uL (0.0-0.1); BASOPHILS % (AUTO) 1 % (0-10); EOSINOPHILS % (AUTO) 0 % (0-10); LYMPHOCYTES # (AUTO) 0.5 X 10^3 (1.0-4.0); LYMPHOCYTES % (AUTO) 8 % (12-44); MONOCYTES # (AUTO) 0.1 X 10^3 (0.0-1.0); MONOCYTES % (AUTO) 1 % (0-12); NEUTROPHILS # (AUTO) 4.9 X 10^3 (1.8-7.8); NEUTROPHILS % (AUTO) 77 % (42-75)
[2021-01-08 09:29] LABS: ALBUMIN 3.3 GM/DL (3.2-4.5); BILIRUBIN,TOTAL 0.2 MG/DL (0.1-1.0); CALCIUM 8.3 MG/DL (8.5-10.1); CREATININE SERUM 0.86 MG/DL (0.60-1.30); POTASSIUM 3.9 MMOL/L (3.6-5.0); TOTAL PROTEIN 5.1 GM/DL (6.4-8.2)
[2021-01-08 09:37] LABS: ANISOCYTOSIS MODERATE; HYPERSEGMENTED NEUT SLIGHT; LYMPHOCYTES % (MANUAL) 8 %; NEUTROPHILS % (MANUAL) 92 %
[2021-01-08 09:38] LABS: ELLIPT/OVALOCYTES SLIGHT; TEAR DROP CELLS SLIGHT
[2021-01-08 10:10] VITALS: BP 112/46
== END 2021-01-08 10:10 | disposition home or self-care (01) ==
LOC: EDUNIT# 08:48 → ER FS 08:49
DX: N93.8 Other specified abnormal uterine and vaginal bleeding (principal); D62 Acute posthemorrhagic anemia; K21.9 Gastro-esophageal reflux disease without esophagitis; F32.9 Major depressive disorder, single episode, unspecified; Z90.710 Acquired absence of both cervix and uterus; Z79.899 Other long term (current) drug therapy
CPT/HCPCS: 36415; 80053; 85007; 85027

== ENCOUNTER → 2021-01-10 | Outpatient (CLI) | payer BC ==
[2021-01-10 13:04] LABS: HEMOGLOBIN 5.6 g/dL (11.5-16.0); MEAN CORPUSCULAR HEMOGLOBIN 30 pg (25-34)
[2021-01-10 13:05] LABS: EOSINOPHILS % (AUTO) 1 % (0-10); HEMATOCRIT 17 % (35-52); LYMPHOCYTES % (AUTO) 51 % (12-44); MEAN CORPUSCULAR HGB CONC 32 g/dL (32-36); MEAN CORPUSCULAR VOLUME 93 fL (80-99); MEAN PLATELET VOLUME 9.6 fL (9.0-12.2); MONOCYTES % (AUTO) 8 % (0-12); NEUTROPHILS % (AUTO) 32 % (42-75); PLATELET COUNT 254 10^3/uL (130-400)
[2021-01-10 13:06] LABS: BASOPHILS % (AUTO) 2 % (0-10); LYMPHOCYTES # (AUTO) 0.5 X 10^3 (1.0-4.0); MONOCYTES # (AUTO) 0.1 X 10^3 (0.0-1.0); NEUTROPHILS # (AUTO) 0.3 X 10^3 (1.8-7.8)
[2021-01-10 14:03] LABS: CALCIUM 8.7 MG/DL (8.5-10.1); CREATININE SERUM 0.85 MG/DL (0.60-1.30); POTASSIUM 4.1 MMOL/L (3.6-5.0)
[2021-01-10 14:04] LABS: ALBUMIN 3.4 GM/DL (3.2-4.5); BILIRUBIN,TOTAL 0.2 MG/DL (0.1-1.0); TOTAL PROTEIN 5.4 GM/DL (6.4-8.2)
[2021-01-10 15:43] LABS: BAND NEUTROPHILS 2 %; BASOPHILS % (MANUAL) 8 %; LYMPHOCYTES % (MANUAL) 62 %; METAMYELOCYTES % 2 %; MONOCYTES % (MANUAL) 2 %; NEUTROPHILS % (MANUAL) 24 %
[2021-01-10 15:44] LABS: ANISOCYTOSIS MODERATE; ELLIPT/OVALOCYTES SLIGHT; PLATELET ESTIMATE ADEQUATE; POIKILOCYTOSIS SLIGHT; RBC MORPH ABNORMAL; TEAR DROP CELLS SLIGHT
== END ==
LOC: LAB FS 12:17
PROVIDERS: ATTEND Family Medicine
DX: C50.911 Malignant neoplasm of unspecified site of right female breast (principal); N93.9 Abnormal uterine and vaginal bleeding, unspecified
CPT/HCPCS: 36415; 80053; 85007; 85027